=== PATIENT | male | born 1955 | race Caucasian/White ===

== ENCOUNTER → 2017-10-08 10:34 | Outpatient (CLI) | payer BC, SELFPAY ==
[2017-10-08 14:36] LABS: Absolute Lymphocyte Count 2.33 X10^3/ul (0.83-4.51); Absolute Neutrophil Count 5.9 X10^3/uL (2.0-7.7); Basophil# 0.04 X10^3/uL; Basophil% 0.4 % (0-1); Eosinophil# 0.17 X10^3/uL; Eosinophils% 1.8 % (0-5); Hematocrit 47.6 % (40-54); Hemoglobin 16.2 g/dl (13.0-16.5); Lymphocyte # 2.33 X10^3/ul (4.0); Lymphocyte % 24.6 % (19-41); Mean Corpuscular Hgb 31.1 pg (27.0-32.0); Mean Corpuscular Volume 91.4 fL (80-94); Mean Platelet Vol. 12.2 fl (6.2-12.0); Monocyte# 0.96 X10^3/uL; Monocyte% 10.1 % (0-10); Neutrophil # 5.94 X10^3/uL (2.7-7.7); Neutrophil % 62.7 % (47-70); Platelet Count 255 K/mm3 (150-450); Red Blood Count 5.21 M/mm3 (4.6-6.2); White Blood Count 9.5 K/mm3 (4.4-11.0)
[2017-10-08 14:39] LABS: POSITIVE COUNT NO; POSITIVE DIFFERENTIAL NO; POSITIVE MORPHOLOGY NO
[2017-10-08 14:56] LABS: AST(SGOT) 27 U/L (15-37); Alanine Aminotransfer ALT/SGPT 69 U/L (16-61); Albumin, Serum 3.7 g/dL (3.2-5.0); Alkaline Phosphatase 68 U/L (45-117); Anion Gap 8 (5-15); BUN 17 mg/dL (7-18); BUN/Creat Ratio 17.3 RATIO (10-20); Calcium,Total 8.9 mg/dL (8.5-10.1); Chloride 103 mmol/L (98-107); Creatinine, Serum 0.98 mg/dL (0.70-1.30); EST Glomerular Filtration Rate 83 mL/min (>60); Est Glom Filt Rate - Afr Amer 100 mL/min (>60); Globulin 3.8 g/dL (2.2-4.2); Glucose 127 mg/dL (74-106); PSA,Total - Annual Screen 1.08 ng/mL (0.00-4.00); Potassium 4.2 mmol/L (3.5-5.1); Protein, Total 7.5 g/dL (6.4-8.2); Sodium Level 138 mmol/L (136-145); Thyroid Stim Hormone (TSH) 1.24 uIU/mL (0.358-3.74)
[2017-10-09 09:25] LABS: Hep C Antibodies <0.1 s/co ratio (0.0-0.9)
== END ==
PROVIDERS: Family Provider Family Medicine Geriatric Medicine; PCP Family Medicine Geriatric Medicine; Visit Provider Family Medicine Geriatric Medicine
DX: R53.83 Other fatigue (principal); Z13.89 Encounter for screening for other disorder; Z12.5 Encounter for screening for malignant neoplasm of prostate
CPT/HCPCS: 36415; 80053; 84153; 84443; 85025; 86803; G0103

== ENCOUNTER → 2017-11-26 12:47 | Outpatient (CLI) | payer BC, SELFPAY ==
--- NOTE | 2017-11-26 12:50 | CT_ITS ---
STUDY: LOW DOSE CT LUNG CANCER SCREENING REASON FOR EXAM: Male, 62 years old. 45 pack year smoking history. RADIATION DOSAGE (If Supplied By Facility): CTDIvol = ( 4.02 ) mGy, DLP = ( 131.90 ) mGycm TECHNIQUE: No contrast was administered. Low dose technique was utilized (average mAS-38 and kVp 120). 1.25 mm axial source images with a slice interval of 1.25-mm were reconstructed in lung windows. 2.5 mm axial source images with a slice interval of 2.5-mm were reconstructed in lung windows. 5.0 mm axial source images with a slice interval of 5.0-mm were reconstructed in soft tissue windows. Nodule measured using lung windows on PACS and/or independent workstation with automated measurement of minimum and maximum diameter. Nodule measurement reported as average diameter rounded to the nearest whole number. Growth is defined as an increase ins size of greater than 1.5 mm. COMPARISON: CT of the chest, February 02, 2016. NODULES: Nodule #: 1 Density: Solid Lung location: Right upper lobe: Pleural-based Location in series: Series Number: 2 Image: 42 Size - D1 x D2 mm: 2 x 2 mm: 2 mm average diameter Margin: Smooth Shape: Rounded Calcification: Yes Fat: No Temporal comparison: Stable Nodule #: 2 Density: Solid Lung location: Right upper lobe: Pleural-based Location in series: Series Number: 2 Image: 53 Size - D1 x D2 mm: 2 x 2 mm: 2 mm average diameter Margin: Smooth Shape: Round Calcification: Yes Fat: No Temporal comparison: Stable Nodule #: 3 Density: Solid Lung location: Right lower lobe: 0.3 cm from pleura Location in series: Series Number: 2 Image: 77 Size - D1 x D2 mm: 2 x 2 mm: 2 mm average diameter Margin: Smooth Shape: Round Calcification: No Fat: No Temporal comparison: None Total lung nodules (excluding granulomas): 1 Emphysema: There are mild emphysematous changes lungs with subpleural blebs in the right upper lobe. Endobronchial lesion: No Aorta: Normal Coronary arteries: Normal Heart: Normal in size Pulmonary artery: Normal Mediastinal nodes: None Other chest and abdominal findings: There are degenerative changes of the thoracic spine. There is a type I hiatal hernia. There is fatty infiltration of the liver. CT/Low Dose CT Lung Screening IMPRESSION: Lung-RADS category 2 - Continue annual screening with LDCT in 12 months. IMPORTANT NOTES FOR USE: ACR Lung-RADS Version 1.0 Assessment Categories Release Date: September 22, 2013 Category: Coded 0-4 bases on nodule(s) with highest degree of suspicion. Negative screen is defined as categories 1 and 2; a positive screen is defined as categories 3 and 4. Category 3 and 4A nodules that are unchanged on interval CT should be coded as category 2, and individuals returned to screening in 12 months. Category 4X: Category 3 or 4 nodules with additional imaging findings that increase the suspicion of lung cancer, such as spiculation, GGN that doubles in size in 1 year, enlarged lymph notes, etc. Category Modifiers: S (significant finding unrelated to lung cancer) and C (prior history of treated lung cancer) may be added to the 0-4 Lung-RADS Electronically Signed: Jonathan Antonio DO at 17:06 EDT Tel [phone], Service support ,
--- NOTE | 2017-11-26 13:45 | US_ITS ---
STUDY: THYROID ULTRASOUND REASON FOR EXAM: Male, 62 years old. Nodule. TECHNIQUE: Ultrasound evaluation of the thyroid was performed with real-time and static hughes-scale imaging. COMPARISON: Thyroid ultrasound, October 04, 2016. FINDINGS: RIGHT LOBE: The right lobe of the thyroid gland measures 5.5 x 1.8 x 2.3 cm. There is a homogeneous echotexture. There is a 2.5 x 2.2 x 1.2 cm well-defined hypo-mass in the lower pole with linear internal calcifications. This demonstrates peripheral blood flow. LEFT LOBE: The left lobe of the thyroid gland measures 4.8 x 1.7 x 1.7 cm cm. There is a homogeneous echotexture. There are no demonstrated solid, cystic or complex lesions. There is normal vascularity on Doppler imaging. ISTHMUS: The isthmus measures 0.2 cm. The regional lymph nodes are normal. US/Thyroid IMPRESSION: Large calcified mass in the inferior right thyroid. TR 4. FNA is recommended secondary to the size of the lesion. Electronically Signed: Jonathan Antonio DO at 20:35 EDT Tel [phone], Service support ,
== END ==
PROVIDERS: Family Provider Family Medicine Geriatric Medicine; PCP Family Medicine Geriatric Medicine; Visit Provider Family Medicine Geriatric Medicine
DX: Z12.2 Encounter for screening for malignant neoplasm of respiratory organs (principal); E04.1 Nontoxic single thyroid nodule; Z87.891 Personal history of nicotine dependence
CPT/HCPCS: 76536; G0297

== ENCOUNTER → 2017-12-25 12:45 | Outpatient (CLI) | payer BC, SELFPAY ==
--- NOTE | 2017-12-25 09:00 | ASPS_PTH ---
PATIENT: GONZALEZ FUENTES LOC: [facility] U#:[id number] AGE/SX: 70/M ROOM: RE12/25/[address]: Dr. Kishor Chou MD : 1955 BED: DIS: SPEC #: [id number] RECD: 12/25/17 10:35 STATUS: OLGA MEHUL #: [id number] HODA: 12/25/17 09:[address]: Kishor Chou DEPT: CYTOLOGY RECD BY: Jose Rafael Charles Tissues: Thyroid gland, NOS Procedures: Pap Stain (control) Special Stain Group II Cytology Other HEADER OPERATION: Ultrasound-guided fine needle aspiration right thyroid PRE-OP DIAGNOSIS: Uninodular goiter E04.1 TISSUE SUBMITTED: Fine needle aspiration right thyroid 12 slides DIAGNOSIS CYTOLOGY Right thyroid nodule, ultrasound-guided FNA (smears): A few benign follicular cells noted. The specimen is limited in evaluation due to lack of adequate number of follicular cells. SJ:catina 12/26/17 COMMENT Correlation with clinical, radiologic findings and appropriate follow up are necessary. CYTOLOGY STUDY Slides are reviewed. CYTOLOGY GROSS Received are 12 smears labeled with the patient's name and designated per the requisition as FNA right thyroid. Submitted for staining. 12/25/17 TC:5 CPT: 18682
== END ==
PROVIDERS: Visit Provider Surgery
DX: E04.1 Nontoxic single thyroid nodule (principal)
CPT/HCPCS: 88161; 88313

== ENCOUNTER → 2018-01-16 11:18 | Outpatient (CLI) | payer BC, SELFPAY ==
--- NOTE | 2018-01-16 | ASPIG_PTH ---
PATIENT: GONZALEZ FUENTES LOC: [facility]#:[id number] AGE/SX: 70/M ROOM: RE01/16/[address]: Dr. Kishor Chou MD : 1955 BED: DIS: SPEC #: [id number] RECD: 01/16/18 13:00 STATUS: OLGA MEHUL #: [id number] HODA: 01/16/18 00:[address]: Kishor Chou DEPT: CYTOLOGY RECD BY: Diane Henry ENTERED: 01/16/18 14:15 SP TYPE: ASP OUT OTHR DR: Dr. Juan J Santos MD Tissues: Thyroid gland, NOS Procedures: FNA Specimen Adequacy Pap Stain (control) Special Stain Group II Surgery Specimen Level IV Diff Quik Stain (control) Cell Block Cytology Other HEADER OPERATION: Ultrasound-guided thyroid biopsy, right PRE-OP DIAGNOSIS: Right thyroid nodule TISSUE SUBMITTED: Right thyroid FNA DIAGNOSIS CYTOLOGY Right thyroid nodule, ultrasound-guided FNA (smears, cell block and cytospin): Consistent with benign follicular nodule. See cytology study and comment. SJ:rg 01/17/18 COMMENT The specimen is evaluated at the time of right thyroid FNA by Dr. Hodges. Immediate Evaluation: Set 1 ? A few follicular cells noted. Set 2 ? A few follicular cells noted. Correlation with clinical, radiologic findings and appropriate follow up are necessary. Please make reference to previous specimen ([id number]), right thyroid nodule, ultrasound-guided FNA with diagnosis of a few benign follicular cells noted. Case has been reviewed in consultation with Dr. Feliz who concurs with the above diagnosis. IDC:AM CYTOLOGY STUDY Slides are reviewed. The specimen is paucicellular, however, meets the criteria for adequacy by presence of minimal number of follicular cells. Minimal amount of colloid is noted. CYTOLOGY GROSS Set 1 ? 3 passes - Received is 0.5 ml of bloody fluid labeled with the patient's name, and designated right thyroid. Eight imprints and five paps are made from the submitted fluid and the rest is added to CytoLyt for cell block preparation. Submitted for cytology study. Set 2 ? 2 passes - Received is 0.4 ml of bloody fluid labeled with the patient's name, and designated right thyroid. Five imprints and four paps are made from the submitted fluid and the rest is added to CytoLyt for cell block preparation. Submitted for cytology study. / RADHA:catina 01/16/18 TC:5 CPT: 37927, 94952, 11239, 91191, 97716
--- NOTE | 2018-01-16 12:27 | PCM.OPRPT ---
Problem List (1) Uninodular goiter (nontoxic) Status: Acute Report of Operation Date of Procedure: 01/16/18 Pre-Operative Diagnosis: E04.1 uninodular goiter Post-Operative Diagnosis: Same Surgery/Procedure Performed:: Ultrasound-guided fine-needle aspiration of right thyroid nodule Type of Anesthesia:: Local Description of Procedure: Patient was brought into the ultrasound. Placed in the supine position. Right side of his neck was ultrasound lesion was identified. Prepped the skin with chlorhexidine. Injected 1% lidocaine plain. Under ultrasound guidance injected local down to the lesion. Under ultrasound guidance took 5 passes with a 22-gauge needle. I gave these to the pathologist who plated them and looked at them and said there were a few follicular cells but nothing definitive. Sterile dressings were applied and the patient tolerated the procedure well. I will see him back in 1 week to discuss the final path report. - Admit VTE Documentation VTE Present on Admission: No VTE Mechan Device Prophylaxis: None VTE Pharm Prophylaxis ordered?: No Reason prophylaxis not ordered:: Treatment Not Indicated
== END ==
PROVIDERS: Family Provider Family Medicine Geriatric Medicine; PCP Family Medicine Geriatric Medicine; Visit Provider Surgery
DX: E04.1 Nontoxic single thyroid nodule (principal)
CPT/HCPCS: 10022; 76942; 88161; 88172; 88305; 88313

== ENCOUNTER 2018-01-23 00:35 | Observation (INO) | payer BC, SELFPAY ==
[2018-01-23] VITALS (16 sets, daily range): BP systolic 117–147; BP diastolic 73–106; PULSE 54–78; RESP 15–20; TEMP 36.5–36.7; O2SAT 95–99; BMI 30.2; BMI 29.8; BMI 29.9
--- NOTE | 2018-01-23 00:52 | ED.RN ---
RN CALLED FOR EKG, NO OLD EKGS IN MUSE
[2018-01-23] MEDS: 0.9% Normal Saline 1,000 ML 150 ML IV (01:01)
--- NOTE | 2018-01-23 01:05 | NURSING ---
pt said the 1 nitro took all his cp away
--- NOTE | 2018-01-23 01:07 | NURSING ---
pt now c/o chest pain 0.5
[2018-01-23 01:32] LABS: Absolute Lymphocyte Count 2.69 X10^3/ul (0.83-4.51); Absolute Neutrophil Count 6.2 X10^3/uL (2.0-7.7); Basophil# 0.04 X10^3/uL; Basophil% 0.4 % (0-1); Eosinophil# 0.25 X10^3/uL; Eosinophils% 2.4 % (0-5); Hematocrit 46.7 % (40-54); Hemoglobin 15.6 g/dl (13.0-16.5); Lymphocyte # 2.69 X10^3/ul (4.0); Lymphocyte % 26.2 % (19-41); Mean Corp Hgb Conc 33.4 g/gl (32-36); Mean Corpuscular Volume 92.7 fL (80-94); Mean Platelet Vol. 11.1 fl (6.2-12.0); Monocyte% 10.7 % (0-10); Neutrophil # 6.15 X10^3/uL (2.7-7.7); POSITIVE COUNT NO; POSITIVE DIFFERENTIAL NO; POSITIVE MORPHOLOGY NO; Platelet Count 246 K/mm3 (150-450); RBC Distribution Width CV 12.7 % (11.6-14.6); RBC Distribution Width SD 42.6 fl (35.1-43.9); Red Blood Count 5.04 M/mm3 (4.6-6.2); White Blood Count 10.3 K/mm3 (4.4-11.0)
--- NOTE | 2018-01-23 01:35 | ED.DCSUM_ITS ---
- ER Visit Summary Date of Service: 01/23/18 Chief Complaint: Chest pain History of Present Illness: The patient is a 62 M who was at work tonight when he developed chest pain around 6 PM. It progressively worsened throughout the evening. He describes it as a pressure or bubble like sensation in his chest. It is been waxing and waning. He does have some shortness of breath and states the pain is sometimes worse with deep breath. He did take 2 full size aspirin tonight without improvement. He also tried an antacid without improvement. Patient denies history of coronary disease. His father had bypass surgery when he was in his 80s. He denies PE or DVT risk factors. Physical Examination: Vital signs are unremarkable. Patient sitting upright in bed no acute distress. Head neck examination is unremarkable. Heart is regular rate and rhythm. Lung sounds are clear. There is no reproducible chest wall tenderness. Abdomen is soft nontender. Lower extremity examination reveals no calf tenderness or edema. Strong distal pulses are noted. Test Results: EKG is sinus at 66 with no sign of acute ischemia. CBC and chemistry studies are normal. Troponin is negative. Portal chest x-ray shows no acute disease. Emergency Department Course and Treatment: Patient had taken aspirin prior to arrival. He was given nitroglycerin series here. Pain reduced from a 2 or 3 down to 1. While sitting at rest and talking with family patient states pain has completely resolved. I spoke with hospitalist regarding observation overnight for further cardiac evaluation. Treatment Plan: [] Disposition: Admit Impression: Chest pain This note was generated with [employer] dictation software. It may contain incorrect words, spelling, and punctuation that were not noted in review of the chart prior to signing ED Disposition - Plan for ED Patient: Chief Complaint: Chest Pain Referrals: Juan J Santos Chi, MD [Primary Care Provider] -
[2018-01-23 01:48] LABS: Anion Gap 8 (5-15); BUN 16 mg/dL (7-18); BUN/Creat Ratio 13.8 RATIO (10-20); Calcium,Total 9.2 mg/dL (8.5-10.1); Chloride 107 mmol/L (98-107); Creatinine, Serum 1.16 mg/dL (0.70-1.30); EST Glomerular Filtration Rate 68 mL/min (>60); Est Glom Filt Rate - Afr Amer 82 mL/min (>60); Estimated Creatinine Clearance 69.92 ml/min; Glucose 101 mg/dL (74-106); Potassium 4.1 mmol/L (3.5-5.1); Sodium Level 140 mmol/L (136-145)
--- NOTE | 2018-01-23 03:27 | PCM.HP.STD ---
Problem List (1) Chest pain Status: Acute Qualifiers: Chest pain type: unspecified Qualified Code(s): R07.9 - Chest pain, unspecified (2) Elevated BP without diagnosis of hypertension Status: Acute (3) Obesity (BMI 30.0-34.9) Status: Chronic (4) Tobacco use Status: Chronic (5) Thyroid nodule Status: Chronic History of Present Illness Date of Admission: 01/23/18 Chief Complaint: Chest pain The patient is a 62 ye/o M w/ PMHx: Tobacco use, Obesity, Thyroid nodule following w/ Dr. Chou s/p Bx 01/16/18 w/ pending pathology follow-up visit who presents to the 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 Patient took aspirin and tylenol without improvement prompting presentation to the ED. In the ED work-up included afebrile, heart rate 77, BP 143/83, respiratory rate 17, 99% on 2 L nasal cannula, unremarkable CBC, unremarkable BMP, normal troponin ?1, EKG w/ SR without acute evidence of ischemia. In the ED following NG x 3 chest pain resolved. CXR w/ mild bibasilar interstitial change with no evidence of acute cardiopulmonary disease. In the ED patient administered NS, NG. Past Medical History Past Medical History (Chronic Problems): Chronic Problems (Last Reviewed 12/25/17 @ 08:50 by Awilda Adair) Obesity (BMI 30.0-34.9) (Chronic) Tobacco use (Chronic) Thyroid nodule (Chronic) Medical History: Medical History (Last Reviewed 12/25/17 @ 08:50 by Awilda Adair) Fatigue (Acute) R53.83 Swollen neck (Acute) R22.1 Allergies No Known Allergies Allergy (Verified 01/23/18 00:38) Home Medications: Ambulatory Orders Medication Instructions Recorded lactobacillus combination no.9 4 4,000 mmu cells PO QDAY 12/11/17 billion cell capsule Surgical History: Surgical History (Last Reviewed 12/25/17 @ 08:50 by Awilda Adair) History of foot surgery (Acute) Z98.890 Right foot- Hx of ultrasound guided needle biopsy (Acute) Z98.890 Right thyroid FNA- ? Psychiatric History: No pertinent psych hx Lives: Spouse/ Significant Other Smoking Status: Former smoker - Quit cigarette tobacco use 2 years prior with prior to this one pack per day since a teenager Tobacco Use: Non-smoker Alcohol: None Drugs: None - *Family History Maternal Family History: Family History (Last Reviewed 12/25/17 @ 08:50 by Awilda Adair) Sister Breast cancer Father Diabetes History Items: - - Patient notes mother passed in her 60s secondary to a rare blood disease, unclear type. Paternal Family History: Family History (Last Reviewed 12/25/17 @ 08:50 by Awilda Adair) Sister Breast cancer Father Diabetes History Items: - - Patient notes paternal family history of heart disease, CABG in his 80s. Review of Systems Constitutional: Reports: Fatigue. Denies: Chills, Fever, Weight Change HEENT: Denies: Head Aches, Sinus Congestion, Sinus Drainage Cardiovascular: Reports: Chest Pain, Chest Pressure, Heaviness. Denies: Light Headedness, Orthopnea, Palpitations, Syncope Respiratory: Reports: Shortness of Breath. Denies: Cough, Shortness of breath at rest, Shortness of breath upon exertion, Sputum production Gastrointestinal: Denies: Abdominal Pain, Nausea, Vomiting Genitourinary: Denies: Dysuria Musculoskeletal: Denies: Joint Pain, Joint Tenderness Skin: Denies: Rash, Wounds Neurological: Denies: Numbness, Tingling, Focal weakness Psychiatric: Denies: Anxiety, Depression, Homicidal Ideations, Suicidal Ideations Hematologic/ Lymphatic: Denies: Easy Bruising, Easy Bleeding VTE Information - Inpt Only VTE Present on Admission: No VTE Mechan Device Prophylaxis: SCD's VTE Pharm Prophylaxis ordered?: Yes Patient Problems: Active and Suspected Problems (Last Reviewed 12/25/17 @ 08:50 by Awilda Adair) Chest pain (Acute) Elevated BP without diagnosis of hypertension (Acute) Subjective: Seated upright in the ED bed, no acute distress, notes currently chest discomfort completely resolved. Objective: Physical Examination: General: awake, alert, oriented x 3 and cooperative, seated upright in the ED bed in no apparent distress. Skin: normal color, turgor, no icterus, cyanosis. HEENT: AT/NC, EOMI, PERRLA, mildly dry MM, known thyroid enlargement w/ nodules, no carotid bruits or JVD noted. Lungs: CTA bilaterally, moderate effort, mild decrease BL bases, no rales, ronchi or wheezing. Heart: Regular rate and rhythm; no gallop, rub audible. Abdomen: soft, obese, NTTP, ND, normal BS, no HSM. Extremities: no cyanosis, clubbing, or edema. Neurological: patient awake, alert, oriented x 3; cognitive function intact; pupils equally reactive to light and accomodation; cranial nerves II-XII grossly normal, moving all 4 extremities, no focal deficits, strength preserved. Psychiatric: affect appears normal, no acute evidence of depressive or anxiety feelings. - Physical Exam Vital Signs Temp Pulse Resp BP Pulse Ox 98.1 F 54 L 15 132/87 H 98 01/23/18 00:36 01/23/18 03:26 01/23/18 03:26 01/23/18 03:26 01/23/18 03:26 Oxygen Flow Rate (L/min) 2 Oxygen Delivery Method Room Air Weight: 210 lb 5.136 oz Body Mass Index (BMI) 30.2 Laboratory Tests Past 24 Hrs 01/23/18 01/23/18 00:42 00:42 WBC 10.3 RBC 5.04 Hgb 15.6 Hct 46.7 MCV 92.7 MCH 31.0 MCHC 33.4 RDW 12.7 RDW Differential 42.6 Plt Count 246 MPV 11.1 Immature Gran % (Auto) 0.300 Neut % (Auto) 60.0 Lymph % (Auto) 26.2 Hamlin % (Auto) 10.7 H Eos % (Auto) 2.4 Baso % (Auto) 0.4 Absolute Neuts (auto) 6.2 Absolute Lymphs (auto) 2.69 Total Counted Not Reportable Sodium 140 Potassium 4.1 Chloride 107 Carbon Dioxide 25.0 Anion Gap 8 BUN 16 Creatinine 1.16 Estim Creat Clear Calc 69.92 Est GFR (MDRD) Af Amer 82 Est GFR (MDRD) Non-Af 68 BUN/Creatinine Ratio 13.8 Glucose 101 Calcium 9.2 Troponin I < 0.015 Assessment/Plan All Active Problems (Last Reviewed 12/25/17 @ 08:50 by Awilda Adair) Uninodular goiter (nontoxic) (Acute) Chest pain (Acute) Elevated BP without diagnosis of hypertension (Acute) History of foot surgery (Acute) Hx of ultrasound guided needle biopsy (Acute) Fatigue (Acute) Swollen neck (Acute) The patient is a 62 ye/o M w/ PMHx: Tobacco use, Obesity, Thyroid nodule following w/ Dr. Chou s/p Bx 01/16/18 w/ pending pathology follow-up visit who presents to the 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 (1) Chest Pain: EKG in ED SR without acute evidence of ischemia, CXR w/ chronic changes, initial trop normal x 1. Will admit to PCU, place on a monitored bed to assure no acute myocardial infarction with serial cardiac enzymes and EKGs. If cardiac enzymes remain unremarkable will perform AM stress testing. ASA, NG, morphine. FLP in AM. Mag pending. (2) Tobacco Abuse: Encouraged cessation, inpatient consultation per RT, NR if desired. (3) Obesity: Weight loss and lifestyle changes encouraged. (4) Thyroid nodule/goiter: Status post 01/16/18 FNA R thyroid nodule, pending pathology discussions per patient w/ surgery. (5) DVT Prophylaxis: SCDs, lovenox. Code Visit OBSV E&M: 36198 Initial observation care L3
[2018-01-23 04:46] LABS: Cholesterol 166 mg/dL (200); High Density Lipoprotein 37 mg/dL; Magnesium 2.1 mg/dL (1.6-2.6); Triglycerides 111 mg/dL; Very Low Density Lipoprotein 22 mg/dL (5-40)
[2018-01-23 04:54] LABS: Prothrombin Time (Protime)PT. 12.9 SECONDS (11.7-14.9)
[2018-01-23 04:55] LABS: Partial Thromboplast Time 27.3 Seconds (24.1-36.2)
[2018-01-23] MEDS: Aspirin E.C. 81 MG Tablet PO (05:19)
[2018-01-23] MEDS: 0.9% Normal Saline 1,000 ML 100 ML IV (05:30)
[2018-01-23] MEDS: Famotidine 20 MG Tablet PO (10:37)
--- NOTE | 2018-01-23 15:10 | PCM.DC ---
- Discharge Diagnoses Current Active Problems: Current Active and Chronic Problems (Last Reviewed 12/25/17 @ 08:50 by Awilda Adair) Chest pain (Acute) Obesity (BMI 30.0-34.9) (Chronic) Elevated BP without diagnosis of hypertension (Acute) Tobacco use (Chronic) Thyroid nodule (Chronic) You will use the following diet at home:: Cardiac Your food should be the consistency of: Regular Your liquids should be the consistency of: Regular/Thin Discharge Activity: Return to Normal Activity Additional Instructions: Please check your blood pressure each morning at the same time and record the results, present the findings to the PCP at follow up. Avoid secondhand smoke exposure. Allergies/Adverse Reactions: Allergies No Known Allergies Allergy (Verified 01/23/18 00:38) Medications to take at Discharge lactobacillus combination no.9 4 billion cell capsule 4,000 mmu cells PO QDAY 12/11/17 Primary Care Physician: Juan J Santos Chi, MD [Primary Care Provider] - Please follow up with your Primary Care Physician in: 1-2 weeks Test Results: Test results from this visit will be discussed in further detail at your follow-up appointment, if applicable. Proposed Discharge Date: 01/23/18
--- NOTE | 2018-01-23 15:14 | DCINST_ITS ---
- Discharge Diagnoses Current Active Problems: Current Active and Chronic Problems (Last Reviewed 12/25/17 @ 08:50 by Awilda Adair) Chest pain (Acute) Obesity (BMI 30.0-34.9) (Chronic) Elevated BP without diagnosis of hypertension (Acute) Tobacco use (Chronic) Thyroid nodule (Chronic) You will use the following diet at home:: Cardiac Your food should be the consistency of: Regular Your liquids should be the consistency of: Regular/Thin Discharge Activity: Return to Normal Activity Additional Instructions: Please check your blood pressure each morning at the same time and record the results, present the findings to the PCP at follow up. Avoid secondhand smoke exposure. Allergies/Adverse Reactions: Allergies No Known Allergies Allergy (Verified 01/23/18 00:38) Medications to take at Discharge lactobacillus combination no.9 4 billion cell capsule 4,000 mmu cells PO QDAY Primary Care Physician: Juan J Santos Chi, MD [Primary Care Provider] - Please follow up with your Primary Care Physician in: 1-2 weeks Test Results: Test results from this visit will be discussed in further detail at your follow- up appointment, if applicable. Proposed Discharge Date: 01/23/18
--- NOTE | 2018-01-23 15:15 | PCM.DC.SUM ---
<Nelson Bryan - Last Filed: 01/23/18 15:15> Discharge Date and Diagnosis - Problem List Patient Problems: Active and Suspected Problems (Last Reviewed 12/25/17 @ 08:50 by Awilda Adair) Chest pain (Acute) Elevated BP without diagnosis of hypertension (Acute) Date of Admission: 01/23/18 Date of Discharge: 01/23/18 - Primary Discharge Diagnosis Active and Suspected Problems (Last Reviewed 12/25/17 @ 08:50 by Awilda Adair) Chest pain (Acute) - musculoskeletal HTN Tobacco abuse - Secondary Discharge Diagnosis Chronic Problems (Last Reviewed 12/25/17 @ 08:50 by Awilda Adair) Obesity (BMI 30.0-34.9) (Chronic) Tobacco use (Chronic) Thyroid nodule (Chronic) Hospital Course and Treatment Imaging Results: RAD/Chest 1 View (Portable) IMPRESSION: Mild bibasilar interstitial change with no evidence of acute cardiopulmonary disease. Stress Echo: Interpretation Summary The study was technically difficult. Contrast injection was performed. The estimated ejection fraction is 65 %. Normal, adequate, treadmill echocardiogram. Negative for ischemia by EKG and echocardiographic criteria. No anginal symptoms noted. No arrhythmias noted. Test terminated due to the attainment of target heart rate and dyspnea. Final LVEF is 75%. Hypertensive blood pressure response to exercise. Average exercise capacity for age. Decreased sensitivity due to poor echo windows requiring Definity enhancing agent. No complications. Operations: None Procedures: Stress test Summary of Care Provided: Physical exam on day of discharge: General: Resting comfortably NAD Psych: A/Ox3 normal affect HEENT: PEARRLA AT NC Neck: Supple NT CV: RRR no m/t/r/g/h Resp: CTA Abd: [id number] Soft NT no guarding or rigidity Ext: DP2+= no edema Skin: W/D normal turgor Lymph/Heme: No active bleeding or adenopathy Neuro: CN2-12 intact Hospital course: The patient is a 62 year old M with heavy nicotine abuse history, not on any medications at home, who presented to the emergency room with chief complaint of shortness of breath described as 3-4 out of 10 left-sided pressure/heaviness with no radiation and some dyspnea progressively worsening. In the emergency room he was mildly hypertensive, with negative troponin, negative chest x-ray, negative EKG. He was admitted to the PCU on telemetry for chest pain workup. He underwent a stress echo the following morning with results as above, negative for ischemia. He was contained on telemetry with no events overnight, he had resolution of his chest pain overnight. Chest pain was felt to be musculoskeletal. Troponin negative x3. LDL was 107. He did continue to have mildly elevated hypertension and advised him to monitor his blood pressure daily and record it for presentation to his PCP at follow-up. He has not started on any medications at this time. He was discharged home in stable condition. Follow up with the PCP in 1-2 weeks. This patient was seen by Nelson Bryan PA-C under the supervision of Doctor Mike. Discharge Diet: Low fat/ Low Cholesterol, 2000 mg Sodium Diet Discharge Activity: Return to Normal Activity Home Medications: Medications to take at Discharge lactobacillus combination no.9 4 billion cell capsule 4,000 mmu cells PO QDAY 12/11/17 Primary Care Physician: Juan J Santos Chi, MD [Primary Care Provider] - Please follow up with your Primary Care Physician in: 1-2 weeks Disposition: Home Minutes spent on discharge:: 35 Patient Condition:: Stable Medical Necessity - Tobacco Use Smoking Status: Former smoker Tobacco Use: Non-smoker Meaningful Use Info Meaningful Use Diagnoses (Choose all that apply): None applicable <Mariana Mckeon - Last Filed: 01/23/18 15:33> Discharge Date and Diagnosis - Primary Discharge Diagnosis Active and Suspected Problems (Last Reviewed 12/25/17 @ 08:50 by Awilda Adair) Chest pain (Acute) Elevated BP without diagnosis of hypertension (Acute) - Secondary Discharge Diagnosis Chronic Problems (Last Reviewed 12/25/17 @ 08:50 by Awilda Adair) Obesity (BMI 30.0-34.9) (Chronic) Tobacco use (Chronic) Thyroid nodule (Chronic) Hospital Course and Treatment Summary of Care Provided: Patient seen by Nelson Bryan PA-C under my supervision. Patient presented with a complaint of shortness of breath and left sided chest discomfort. It had no aggravating or relieving factors, and he had never had chest pain like this before. EKG done was negative for any acute ST changes and troponins were also negative. Chest pain had resolved by morning. He had a stress echo which showed a normal adequate treadmill echocardiogram which was negative for ischemia by EKG and echocardiographic criteria. Final left ventricular ejection fraction was 75%. He had hypertensive blood pressure response to exercise. Patient's blood pressure was in the 140s systolic throughout his admission. He has no diagnosis of hypertension. Medications were started during this admission, as he does not meet the criteria for elevated blood pressure with blood pressure being checked and elevated on 3 separate days. He is to follow-up with his primary care doctor within 1 week for blood pressure monitoring and for start of medications as needed. Patient seen and examined prior to discharge. He had no complaints and felt well. He denied any fever chills, cough or chest pain, shortness of breath, any abdominal pain, any diarrhea vomiting. Review of systems otherwise negative. o/e: Vital Signs Height 5 ft 10 in Weight: 208 lb 1.862 oz Weight in Pounds 208.1 lbs Pulse Ox 95 Temperature 98.1 F Pulse Rate 78 Respiratory Rate 18 Blood Pressure [2nd BP] 143/106 Blood Pressure 147/79 Blood Pressure Position [2nd Semi-Fowlers BP] Blood Pressure Position Semi-Fowlers General: awake, alert, oriented x 3 and cooperative Skin: normal color, turgor, no icterus, cyanosis. HEENT: AT/NC, EOMI, PERRLA, known thyroid enlargement w/ nodules, no carotid bruits or JVD noted. Lungs: clear to auscultation bilaterally. No wheezes or rales. Heart: Regular rate and rhythm; no gallop, Abdomen: soft, obese, no tenderness. Normal bowel sounds. Extremities: no cyanosis, clubbing, or edema. Neurological: patient awake, alert, oriented x 3; cpupils equally reactive to light and accomodation; cranial nerves II-XII grossly normal, moving all 4 extremities, no focal deficits, strength preserved. Psychiatric: affect appears normal, Plan is to discharge patient home today. ASCVD score is 11.4%. LDL was 107, and HDL was only 37. Total cholesterol was 137. Will therefore start patient on atorvastatin 40 mg daily and aspirin 81mg daily. To follow up with PCP to monitor BP and decide whether to start BP meds or otherwise. Rest of management as per Nelson Bryan PA-C's note. [] Code Visit Inpatient E&M: 15843 Disch Hosp
== END 2018-01-23 15:14 | disposition home or self-care (01) ==
LOC: ED 00:58 → PCU 03:48
PROVIDERS: Admitting Provider Family Medicine; Emergency Provider Emergency Medicine; Family Provider Family Medicine Geriatric Medicine; PCP Family Medicine Geriatric Medicine; Visit Provider Student in an Organized Health Care Education/Training Program
DX: R07.89 Other chest pain (principal); R06.02 Shortness of breath; E04.1 Nontoxic single thyroid nodule; R03.0 Elevated blood-pressure reading, without diagnosis of hypertension; E66.9 Obesity, unspecified; Z68.29 Body mass index [BMI] 29.0-29.9, adult; Z71.3 Dietary counseling and surveillance; Z87.891 Personal history of nicotine dependence; R94.31 Abnormal electrocardiogram [ECG] [EKG]; R00.1 Bradycardia, unspecified
CPT/HCPCS: 36415; 71045; 80048; 80061; 83735; 84484; 85025; 85610; 85730; 93005; 93017; 93350; 96360; 96361; 99218; 99284; J7030; Q9957; A4216; C8928; G0378

== ENCOUNTER 2021-03-26 14:33 | Emergency (ER) | payer OTHER, SELFPAY ==
[2021-03-26 14:34] VITALS: BP 158/89; PULSE 69; RESP 16; TEMP 36.3; O2SAT 100; BMI 26.5
--- NOTE | 2021-03-26 14:57 | EX.ED.VIS.EY ---
HPI History of Present Illness Chief Complaint: Eye Problem Detail of Chief Complaint: Left eye foreign body Informant: patient Onset/Context/Timing Location: Left Eye Onset: Today Context: Sudden Onset Timing: Continuous Current Severity: Mild Maximum Severity: Mild Associated Symptoms History of injury: No Visual correction: Glasses Narrative Narrative: 65-year-old male wears glasses. Does not wear contacts and has never had eye surgery. He was changed Is currently thinks something got in his left eye. This is been going on for last several hours. He denies any other complaints. Previously he did have a foreign body then he needed to have removed by a bur. Prior similar symptoms: Yes Recent Illness/Hospitalization: No PFSH PFSH Medical History (Updated 03/26/21 @ 15:[address] Hollis Sigala MD) Fatigue Swollen neck Home Medications lactobacillus combination no.9 4 billion cell capsule 4,000 mmu cells PO QDAY 12/11/17 [History Last Taken Unknown] aspirin 81 mg PO DAILY@0800 #30 tab.chew 01/23/18 [Rx Last Taken Unknown] atorvastatin 40 mg PO DAILY #30 tab 01/23/18 [Rx Last Taken Unknown] Allergy/AdvReac Type Severity Reaction Status Date / Time No Known Allergies Allergy Verified 03/26/21 14:36 Family History Sister Breast cancer Father Diabetes Surgical History History of foot surgery Hx of ultrasound guided needle biopsy Social History Smoking Status: Former smoker alcohol intake: never substance use type: does not use caffeine: Yes what type of physical activity do you participate in: none frequency: does not exercise seatbelt use: always ROS ROS ED ROS Narrative Denies. Review of Systems ROS Unobtainable: Denies due to encephalopathy Constitutional Constitutional ED: Denies fever(s) or subjective Eyes Eyes: Denies blurry vision, change in vision or diplopia ENT ENT ED: Denies ear pain Cardiovascular Cardiovascular: Denies chest pain Respiratory/Chest Respiratory/Chest: Denies dyspnea Gastrointestinal Gastrointestinal: Denies abdominal pain Genitourinary Genitourinary ED: Denies dysuria Musculoskeletal Musculoskeletal: Denies myalgias Integumentary Denies rash Neurologic Neurologic: Denies headache(s) Psychiatric Psychiatric: Denies depression Endocrine Endocrinology: Denies polyuria Hematologic/Lymphatic Hematologic/Lymphatic: Denies easy bruising Allergic/Immunologic Allergic/Immunologic ED: Denies urticaria EXAM Physical Exam Narrative Exam Narrative: 65-year-old male no acute distress HEENT exam there is a foreign body left at about 5:00 on the border of the iris. Mild redness. Increased tearing. No discharge. No orbital or periorbital swelling. Extraocular motions are intact. Pupils round reactive light bilaterally. There is no preauricular lymphadenopathy. There is no cellulitis. Otherwise exam unremarkable. Const Vital Signs: 03/26/21 14:34 Temperature 97.4 F L Temperature Source Temporal Pulse Rate 69 Respiratory Rate 16 Blood Pressure 158/89 H Blood Pressure Mean 112 Pulse Ox 100 Oxygen Delivery Method Room Air Positive well nourished and well developed; Negative for obese, cachectic, contractures or unkempt General Appearance ED: well developed and NAD; Negative for unkempt, cachectic or contractures Nutritional Appearance: Negative for cachectic or obese HEENT HEENT Narrative: Left eye foreign body at 5:00. I instilled tetracaine and fluorescein. Did a slit-lamp exam. Easily remove the foreign body with a wet Q-tip. On repeat examination there is a very minimal corneal abrasion with fluorescein uptake. There is no ulceration. He denies any visual change. atraumatic Eyes Periorbital: periorbital findings normal Eyelid: eyelids normal Resp normal respiratory effort, no retractions, no use of accessory muscles and clear to auscultation bilaterally Cardio regular rate, regular rhythm, S1 normal heart sound, S2 normal heart sound and no murmurs GI non-tender, non-distended and no masses Auscultation: normoactive bowel sounds Palpation: soft Extremity normal to inspection General Extremety ED: Negative for edema General Extremity: Negative for edema Neuro oriented x3 Sensorium / Orientation: alert, oriented to person, oriented to place and oriented to time; Negative for other Sensory Exam: No sensory level loss detected Psych Appearance: Negative for unkempt Attitude: No agitated Mood & Affect: Negative for depressed, anxious or tearful Skin no wounds Lesions: no lesions Rashes: no rashes MDM MDM MDM Narrative Medical decision making narrative: Slit-lamp performed left eye. Tetracaine removed the discomfort. Fluorescein showed obvious foreign body at 5:00 on the border of the iris. Which I removed easily with a white Q-tip. Patient tolerated procedure well. Discharge Plan Triage Chief Complaint: Eye Problem ED Provider: Hollis Sigala Dx/Rx/DC Orders Clinical Impression: Acute foreign body of left eye Instructions: ED Corneal Foreign Body, Removed Prescriptions: No Action lactobacillus combination no.9 [Adult 50 Plus Probiotic] 4 billion cell capsule 4,000 mmu cells PO QDAY RF: 0 atorvastatin 40 MG tablet 40 mg PO DAILY Qty: 30 RF: 0 aspirin 81 MG Tab.Chew 81 mg PO DAILY@0800 Qty: 30 RF: 0 Primary Care Provider: Ryder Graves Referrals: Marito Forte MD [STAFF PHYSICIAN] - As Needed Ryder Graves DO [Primary Care Provider] - As Needed Activity Restrictions/Additional Instructions: Follow-up with the eye doctor Dr. Marito Forte at [facility] if not improving. Use the eyedrops as needed for pain for the next 24 hours but after midnight on Sunday night you cannot continue to use them because they retard healing. Eye ointment to left eye twice a day for next 3 days. Return if any problems. Disposition Disposition: Home, Self Care
[2021-03-26] MEDS: Tetracaine 0.5% Ophthalmic Bottle 1 DRP RIGHT EYE (15:23)
[2021-03-26] MEDS: Fluorescein 1 MG STRIP 1 STRIP RIGHT EYE (15:24)
[2021-03-26 15:25] VITALS: RESP 16
== END 2021-03-26 15:31 | disposition home or self-care (01) ==
LOC: ED 15:17
PROVIDERS: Emergency Provider Emergency Medicine; PCP Student in an Organized Health Care Education/Training Program
DX: T15.02XA Foreign body in cornea, left eye, initial encounter (principal); X58.XXXA Exposure to other specified factors, initial encounter; Y93.9 Activity, unspecified; Y92.9 Unspecified place or not applicable; Y99.9 Unspecified external cause status; Z79.82 Long term (current) use of aspirin; Z87.891 Personal history of nicotine dependence
CPT/HCPCS: 99282

== ENCOUNTER 2025-04-13 14:35 | Observation (INO) | payer BC, MEDICARE, SELFPAY ==
[2025-04-13 14:40] VITALS: BP 155/73; PULSE 85; RESP 18; TEMP 36.2; O2SAT 98; BMI 31.1
--- NOTE | 2025-04-13 14:55 | ED.RN ---
spoke with ED physician. states do not need to call stroke alert at this time.
--- NOTE | 2025-04-13 15:11 | EKG12_ITS ---
Test Reason : Blood Pressure : */* mmHG Vent. Rate : 64 BPM Atrial Rate : 64 BPM P-R Int : 200 ms QRS Dur : 84 ms QT Int : 370 ms P-R-T Axes : 65 -27 32 degrees QTcB Int : 381 ms Normal sinus rhythm Normal ECG Confirmed by HONEY MERRILL, NAY ([id number]), editor school photograph ADI BADILLO ([id number]) on 04/14/2025 12:21:45 PM Referred By: Confirmed By: NAY MÉNDEZ MD
--- NOTE | 2025-04-13 15:13 | EDS_ITS ---
HPI History of Present Illness Chief Complaint: Hyperglycemia Narrative Narrative: Patient is a 69-year-old male presenting to the emergency department for polydipsia, polyuria and an episode today where he developed right sided facial droop, numbness and slurred speech. Has a past medical history of elevated blood pressure, tobacco use, obesity he is on no medications at home. He states it started right before 2 PM. States that it lasted about 5 minutes and all of the symptoms have since resolved. was home with him and states she could not understand his speech. He denies this ever happening before. States about 5 years ago he was told that he was prediabetic and lost weight but states that since then he has gained weight back and has not been to the doctor. He denies any numbness or weakness in his legs. Denies any headache or visual changes. Denies any recent head trauma or falls. Patient denies fever, chills, chest pain, shortness of breath, abdominal pain, nausea, vomiting, diarrhea. PFSH PFS Medical History Fatigue Swollen neck Home Medications ?Medication ?Instructions ?Recorded ?Last Taken ?Type NK 04/13/25 Unknown History Allergy/AdvReac Type Severity Reaction Status Date / Time No Known Allergies Allergy Verified 04/13/25 14:37 Family History Sister Breast cancer Father Diabetes Surgical History History of foot surgery Hx of ultrasound guided needle biopsy Social History Smoking Status: Former smoker alcohol intake: never substance use type: does not use caffeine: Yes what type of physical activity do you participate in: none frequency: does not exercise seatbelt use: always ROS ROS ED ROS Narrative see HPI EXAM Physical Exam Narrative Exam Narrative: Vital signs: Reviewed General: Alert and oriented x 3. No acute distress HEENT: Head is normocephalic and atraumatic, sinuses nontender, pupils equal round and reactive. Nares are patent. Oropharynx and throat exams normal. Dry mucous membranes. Neck: Supple without lymphadenopathy nontender Cardiovascular: Regular rate and rhythm, no murmurs. No rubs or gallops. No rmal S1 and S2 Respiratory: Clear to auscultation bilaterally. No wheezes, rales, rhonchi Abdominal: Soft and nontender. Normal bowel sounds. No guarding or rebound. Nonsurgical abdomen Extremities: No tenderness. No bruising. Normal range of motion. Normal sensation. Skin: No rash or redness. The rest of the physical exam is unremarkable Const Vital Signs: 04/13/25 14:40 04/13/25 14:45 04/13/25 15:48 Temperature 97.2 F L Temperature Source Oral Pulse Rate 85 70 Respiratory Rate 18 16 Respiratory Effort Normal Non-Labored Respiratory Pattern Normal Blood Pressure 155/73 H 147/87 H Blood Pressure Mean 100 107 Pulse Ox 98 99 Oxygen Delivery Method Room Air Room Air NIHSS NIHSS Initial: 1a Level of Consciousness: 0 1b LOC Questions (Score 2 if aphasic/stupor): 0 1c LOC Commands (Only score 1st attempt): 0 2 Best Gaze (If aphasic, use reflexive mvmts.): 0 3 Visual: 0 4 Facial Palsy: 0 5 Motor Arm Right (UN = amputation/fusion): 0 5 Motor Arm Left: 0 6 Motor Leg Right: 0 6 Motor Leg Left: 0 7 Limb ataxia (Only + if out of proportion): 0 8 Sensory (Aphasia/stupor=0 or 1, coma=2): 0 9 Best Language: 0 10 Dysarthria (mute, coma=2, intubated=UN): 0 11 Extinction and Inattention (only scored if +): 0 Total Score: 0 MDM MDM MDM Narrative Medical decision making narrative: Patient is a 69-year-old male presenting to the emergency department for polyuria, polydipsia and right-sided facial numbness, drooping and slurred speech. Patient was seen and examined. Vitals are stable. Patient resting in bed comfortably in no acute distress. Based on the patient's history and physical sound like the patient had a TIA. No strokelike symptoms on my evaluation of the patient. NIH of 0. In addition the patient has had polyuria and polydipsia and I suspect diabetes is because of this. Labs and hemoglobin A1c ordered. CBC with no leukocytosis and a normal hemoglobin. BMP with hyperglycemia of 429, normal anion gap and bicarb, not consistent with DKA. Troponin within normal limits. EKG shows NSR, no ischemic changes. No dysrhythmia. Urinalysis with glucose and ketones consistent with his likely new onset diabetes. Negative beta hydroxybutyrate. Fluid bolus started. Will recheck glucose after fluids to see if there is any need for insulin. CT of the brain shows no acute intracranial abnormalities, chronic changes. Hemoglobin A1c of 10.8. Discussed admission with the patient for fur ther workup of his TIA and management of his new onset diabetes. Patient is agreeable. Patient admitted to Dr. Ambrose for further management. Clinical impression: TIA New onset diabetes History & Record Review Discussion w/independent historian: Patient and Significant other Lab Data Attestation: I reviewed the patient's lab results. Labs: Laboratory Results - last 24 hr 04/13/25 04/13/25 14:51 15:20 WBC 8.3 RBC 5.33 Hgb 16.4 Hct 47.7 MCV 89.5 MCH 30.8 MCHC 34.4 RDW Std Deviation 40.1 RDW Coeff of [place] 12.2 Plt Count 227 MPV 11.3 Immature Gran % (Auto) 0.400 Neut % (Auto) 73.1 H Lymph % (Auto) 17.[address] [place] % (Auto) 7.0 Eos % (Auto) 1.4 Baso % (Auto) 0.5 Absolute Neuts (auto) 6.1 Absolute Lymphs (auto) 1.46 Nucleated RBC % 0 Sodium 135 Potassium 4.0 Chloride 100 Carbon Dioxide 23.9 Anion Gap 12 BUN 16 Creatinine 0.97 Estim Creat Clear Calc 86.96 Est GFR (MDRD) Non-Af 86 BUN/Creatinine Ratio 16.1 Glucose 429 H Hemoglobin A1c 10.8 H Calcium 9.8 Troponin T High Sens < 6 b-Hydroxybutyric mmol/L 0.3 Urine Color Straw Urine Clarity Clear Urine pH 6.0 Ur Specific [place] 1.015 Urine Protein 15 H Urine Glucose (UA) 1000 H Urine Ketones 5 H Urine Occult Blood Negative Urine Nitrite Negative Urine Bilirubin Negative Urine Urobilinogen Normal Ur Leukocyte Esterase Negative Radiography Diagnostic Testing: Clinical Impression(s) from Imaging Studies Brain CT 04/13/25 15:20 IMPRESSION: CHRONIC CHANGES. NO ACUTE FINDINGS. Reading Location: [id number] Discharge Plan Triage Chief Complaint: Hyperglycemia ED Provider: Kathy Ann Dx/Rx/DC Orders Prescriptions: No Action NK Primary Care Provider: Ryder Graves Referrals: Ryder Graves DO [Primary Care Provider, Medical] Print Language: [place]
--- NOTE | 2025-04-13 15:20 | CT_ITS ---
PROCEDURE: BRAIN/HEAD WITHOUT CONTRAST 04/13/2025 REASON FOR EXAM: RIGHT SIDED WEAKNESS, FACIAL DROOP, RESOLVED TECHNIQUE: Procedure Code: CTBR Modality: CT Procedure: BRAIN/HEAD WITHOUT CONTRAST Coronal and Sagittal reconstruction series were provided. One or more dose reduction techniques were used (e.g., Automated exposure control, adjustment of the mA and/or kV according to patient size, use of iterative reconstruction technique. RADIATION DOSE SUMMARY: CTDlvol: 47.06 mGy DLP: 907.97 mGycm COMPARISON: None FINDINGS: Brain: Normal CSF Spaces: Mild generalized cerebral atrophy Sinuses/Mastoids: Small retention cyst or polyp at the base of the left maxillary sinus. Bones: Unremarkable CT/Brain/Head without Contrast IMPRESSION: CHRONIC CHANGES. NO ACUTE FINDINGS. Reading Location: [id number]
[2025-04-13] MEDS: 0.9% Normal Saline (1000mL) 1,000 ML 1000 ML IV (15:21)
[2025-04-13 15:25] LABS: Mucous, Urine 0 SEEN /hpf (<or=2+)
[2025-04-13 15:32] LABS: Hematocrit 47.7 % (40-54); Hemoglobin 16.4 g/dL (13.0-16.5); Immature Granulocytes Count 0.030 X10^3/uL (0.0-0.0); Mean Corp Hgb Conc 34.4 g/dL (32-36); Mean Corpuscular Volume 89.5 fL (80-94); Mean Platelet Vol. 11.3 fl (6.2-12.0); NRBC Flagged by Analyzer 0 % (0-5); Platelet Count 227 K/mm3 (150-450); RBC Distribution Width CV 12.2 % (11.6-14.6); RBC Distribution Width SD 40.1 fl (35.1-43.9); Red Blood Count 5.33 M/mm3 (4.6-6.2); White Blood Count 8.3 K/mm3 (4.4-11.0)
[2025-04-13 15:48] VITALS: BP 147/87; PULSE 70; RESP 16; O2SAT 99
--- NOTE | 2025-04-13 15:49 | ED.RN ---
unable to straighten 2 fingers of right hand, had difficulty writing signature.
[2025-04-13 15:53] LABS: Anion Gap 12 (5-15); BUN 16 mg/dL (4-19); BUN/Creat Ratio 16.1 RATIO (10-20); Calcium,Total 9.8 mg/dL (7.6-11.0); Carbon Dioxide 23.9 mmol/L (21.0-32.0); Chloride 100 mmol/L (98-108); Estimated Creatinine Clearance 86.96 ml/min (50-250); Glucose 429 mg/dL (70-99); Potassium 4.0 mmol/L (3.3-5.1)
[2025-04-13 15:54] LABS: Troponin T High Sensitivity < 6 ng/L (<=22)
[2025-04-13 16:00] LABS: Color, Urine Straw (Yellow); Glucose, Dipstick 1000 mg/dl (Normal); Ketone-Dipstick 5 mg/dl (Negative); Leukocyte Esterase-Dipstick Negative /ul (Negative); Nitrite-Dipstick Negative (Negative); Occult Blood-Urine Negative /ul (Negative); Protein-Dipstick 15 mg/dl (Negative); Specific Gravity, Urine 1.015 (1.002-1.030); Urine Bilirubin Dipstick Negative (Negative)
[2025-04-13 16:18] LABS: BETA-HYDROXYBUTYRATE 0.3 mmol/L (0.0-0.3)
--- NOTE | 2025-04-13 16:39 | PCM.HP.STD ---
HPI - General General Date of Admission: 04/13/25 Date of Service: 04/13/25 Chief Complaint: Polyuria, polydipsia and strokelike symptoms HPI Narrative GONZALEZ FUENTES, is a 69 M who presented to [facility] ED on 04/13/2025 with polyuria, polydipsia and strokelike symptoms. Patient lives at home with his . He is not on any medications at home but notably has not seen his PCP for many years. He has had polyuria and polydipsia now for the past several weeks. Today he had an episode of right-sided facial droop with numbness and slurred speech, so his brought him in for further evaluation. The symptoms lasted for about 5 minutes and resolved by the time they got to the ED. In the ED he was hypertensive to the 150s systolic but otherwise in normal sinus rhythm, afebrile and stable on room air at rest. CT brain unremarkable. CBC was benign. BMP was benign as well except for a glucose of 429. Found to have an A1c of 10.8%. UA with 1000 glucose, 15 protein, 5 ketones, was otherwise benign. Given his strokelike symptoms and new onset diabetes, hospitalist was contacted for admission. I saw the patient at bedside in the ED, and son were present. Patient was mild fatigue. But otherwise sitting back comfortably in bed, conversing normally, in no acute distress. Denies any neurologic symptoms at this time. His blood sugar had been rechecked after receiving only IV fluids and was down to the 330s. He does have a strong family history of diabetes. He does report losing 10 to 15 pounds over the past few months without trying and notes that he has felt fatigued frequently. He denies any recent infections. No other acute concerns currently. Will be admitted for further management. [facility] Medical History (Updated 04/13/25 @ 18:[address] Jerry Ambrose, DO) Fatigue Swollen neck Home Medications ?Medication ?Instructions ?Recorded ?Last Taken ?Type NK 04/13/25 Unknown History Allergy/AdvReac Type Severity Reaction Status Date / Time No Known Allergies Allergy Verified 04/13/25 14:37 Family History Sister Breast cancer Father Diabetes Surgical History History of foot surgery Hx of ultrasound guided needle biopsy Social History Smoking Status: Former smoker alcohol intake: never substance use type: does not use caffeine: Yes what type of physical activity do you participate in: none frequency: does not exercise seatbelt use: always ROS Constitutional Constitutional: Reports fatigue; Denies chills, fever(s) or weakness Eyes Eyes: Denies change in vision Cardiovascular Cardiovascular: Denies chest pain Respiratory/Chest Respiratory/Chest: Denies shortness of breath at rest Gastrointestinal Gastrointestinal: Denies abdominal pain, constipation, diarrhea, nausea or vomiting Genitourinary Genitourinary: Denies dysuria Musculoskeletal Musculoskeletal: Denies arthralgias or myalgias Neurologic Neurologic: Denies dizziness, focal weakness, headache(s), numbness or tingling Endocrine Endocrinology: Reports polydipsia and polyuria Vital Signs Vital Signs Vital Signs: 04/13/25 14:40 04/13/25 14:45 04/13/25 15:48 Temperature 97.2 F L Temperature Source Oral Pulse Rate 85 70 Respiratory Rate 18 16 Respiratory Effort Normal Non-Labored Respiratory Pattern Normal Blood Pressure 155/73 H 147/87 H Blood Pressure Mean 100 107 Pulse Ox 98 99 Oxygen Delivery Method Room Air Room Air Weight Weight: 98.5 kg Body Mass Index (BMI) 31.1 Physical Exam Const alert, oriented x3 and no apparent distress Constitutional Narrative: Pleasant upper middle-age male, mildly fatigued appearing, otherwise sitting back comfortably in bed, conversing normally, in no acute distress. General Appearance: cooperative and comfortable HEENT normocephalic, head/scalp atraumatic, hearing grossly normal bilaterally and nasal mucous membranes and turbinates normal HEENT Narrative: Dry mucous membranes. Eyes PERRL, EOMs intact bilaterally and conjunctivae normal Neck full ROM Chest inspection of chest normal Resp normal respiratory effort, normal air movement, no use of accessory muscles and clear to auscultation bilaterally Cardio regular rate, regular rhythm, no murmurs and peripheral pulses 2+ throughout GI normal to inspection, nondistended, normoactive bowel sounds, soft to palpation, non-tender and non-distended Back/Spine normal ROM Extremity normal to inspection, full ROM and no pedal edema Skin no rashes or lesions noted Neuro oriented x3, CN's II-XII intact bilaterally, moves all extremities and no focal motor deficits Speech: speech normal Motor Exam: strength 5/5 throughout Psych mental status grossly normal Results Lab / Micro Data 04/13/25 14:51 04/13/25 14:51 Labs: Laboratory Results - last 24 hr 04/13/25 14:51: WBC 8.3, RBC 5.33, Hgb 16.4, Hct 47.7, MCV 89.5, MCH 30.8, MCHC 34.4, RDW Std Deviation 40.1, RDW Coeff of [place] 12.2, Plt Count 227, MPV 11.3, Immature Gran % (Auto) 0.400, Neut % (Auto) 73.1 H, Lymph % (Auto) 17.6 L, [place] % (Auto) 7.0, Eos % (Auto) 1.4, Baso % (Auto) 0.5, Absolute Neuts (auto) 6.1, Absolute Lymphs (auto) 1.46, Nucleated RBC % 0, Sodium 135, Potassium 4.0, Chloride 100, Carbon Dioxide 23.9, Anion Gap 12, BUN 16, Creatinine 0.97, Estim Creat Clear Calc 86.96, Est GFR (MDRD) Non-Af 86, BUN/Creatinine Ratio 16.1, Glucose 429 H, Calcium 9.8, Troponin T High Sens < 6, b-Hydroxybutyric mmol/L 0.3 04/13/25 15:20: Urine Color Straw, Urine Clarity Clear, Urine pH 6.0, Ur Specific [place] 1.015, Urine Protein 15 H, Urine Glucose (UA) 1000 H, Urine Ketones 5 H, Urine Occult Blood Negative, Urine Nitrite Negative, Urine Bilirubin Negative, Urine Urobilinogen Normal, Ur Leukocyte Esterase Negative Imaging Radiology Impression Brain CT 04/13/25 15:20 IMPRESSION: CHRONIC CHANGES. NO ACUTE FINDINGS. Reading Location: [id number] Assessment & Plan Assessment/Plan (1) Stroke-like symptoms: (2) Hyperglycemia due to type 2 diabetes mellitus: PLAN: Plan Patient is a 69-year-old male who presented to [facility] ED on 04/13/2025 with strokelike symptoms and polyuria with polydipsia. 1. Strokelike symptoms ? Admit under observation status to PCU. Had reported symptoms of right-sided facial droop with numbness and slurred speech. Symptoms lasted about 5 minutes and resolved prior to arrival to the ED. NIH score of [address] brain unremarkable. Highest suspicion is that symptoms are secondary to new onset diabetes with hyperglycemia as below but cannot rule out CVA. Given symptoms have resolved, will hold off on orders per stroke protocol order set and neurology consult. Will order MRI brain without contrast as well as a.m. lipid profile and follow-up with these results. 2. New onset type 2 diabetes mellitus with hyperglycemia ? Blood glucose 429 in the ED. A1c 10.8%. Has had polyuria, polydipsia and unintentional weight loss of 10 to 15 pounds over the past few months. Will treat with Lantus 20 units at night and Humalog 7 units with meals plus sliding scale insulin while here. Patient has a PCP and his sees this PCP regularly, so I impressed upon them that he will need close outpatient follow-up for medication titration for his diabetes. He would prefer to go home on an oral regimen rather than insulin if possible. 3. Elevated BP readings ? Systolic BP in the 140s to 150s in the ED. No reported history of hypertension, not on any home antihypertensives. Will hold on starting blood pressure medications given his strokelike symptoms as above. If MRI is negative and BP remains high, can consider starting antihypertensive therapy at discharge. 4. Class I obesity ? BMI 31 on admit. Complicates hospital course and care. Encouraged lifestyle modifications. DVT prophylaxis: Lovenox CODE STATUS: Full code, verified Expected disposition: Home, 1 to 2 days Total clinical time spent by myself addressing the patient's medical issues, reviewing all the data, and collaborating with patient's care team: 78 minutes. Charges/Coding Visit Charges Inpatient E&M: 54391 Init Hosp L3
[2025-04-13 16:45] VITALS: BP 150/91; PULSE 70; RESP 18; TEMP 36.2; O2SAT 97
[2025-04-13 16:56] LABS: Red Blood Cells-Urine 0-5 SEEN /hpf (0-5); Squamous Epithelial Cells - UA 0-5 SEEN /hpf (0-5)
--- NOTE | 2025-04-13 17:18 | MRI_ITS ---
PROCEDURE: MRI BRAIN WITHOUT CONTRAST 04/13/2025 REASON FOR EXAM: CVA RULE OUT TECHNIQUE: Procedure Code: MRIBR Modality: MR Procedure: BRAIN WITHOUT CONTRAST Multiplanar and multisequential MRI of the brain was performed without contrast. COMPARISON: Noncontrast CT head earlier same day. No prior MRI available. FINDINGS: Small foci of restricted diffusion in the left precentral gyrus (S6 image 21) and small focus in the right parietal lobe (S6 image 19) compatible with acute infarcts, likely embolic. Mild chronic microangiopathic changes elsewhere in the supratentorial white matter. Mild generalized brain parenchymal volume loss. No evidence of acute intracranial hemorrhage, extra-axial collection, mass-effect, or other acute abnormality. Major intracranial vascular flow voids appear preserved. Grossly unremarkable orbits. Mild polypoid mucosal thickening in the floors of bilateral maxillary sinuses. Remainder of the paranasal sinuses are well-aerated. No mastoid effusions. MRI/Brain without Contrast IMPRESSION: Two small foci of acute infarct in the left precentral gyrus and right parietal lobe, likely embolic. Reading Location: [id number]
[2025-04-13 17:57] LABS: Troponin T High Sens 2 HR 6 ng/L (<=22)
--- OUTSIDE RECORDS SUMMARY | 2025-04-13 18:39 | XMS RPT_ITS | CCD ---
Author Organization [facility] Inform ion Partnership [facility] Care Team Providers [employer] Tutor Name Role Phone Ed Pearl Admitting Ed Gallegos Attending Unavailynes collins TomJuan J farah Chi Primary Care Unavailable LAURENT ORTEGA Attending Unavailable LAURENT ORTEGA Primary Care Unavailable LAURENT ORTEGA Admitting Unavailable Ryder Preston DO Primary Care Provider Ryder Preston DO Primary Care Provider Ryder Preston DO Primary Care Provider Kp EMERY GRINDER.Chayo CHAVARRIA Unavailable Marily EMERY GRINDER.Estefani CHAVARRIA Unavailable RYDER PRESTON Primary Care Unavailable BELÉN LLOYD Attending Unavailable RYDER PRESTON Primary Care Unavailable Allergies Allergy Classification Reported Allergen(s) Allergy Type Date of Onset Reaction(s) Facility Corticosteroids (1 source) fluticasone Drug Allergy 4 Other: See Comments [facility] (1 source) No Known Medication Allergies; Translations: [No Known Medication Allergies] Propensity to adverse reactions to drug (disorder) [facility] Rep[facility] (9 sources) fluticasone; Translations: [FLUTICASONE] Drug Allergy 4 Other: See Comments [facility] Medications Current Medications Medication Drug Class(es) Dates Sig (Normalized) Sig (Original) [id number] 200 actuat albuterol 0.09 mg/actuat metered dose inhaler (1 source) beta2-Adrenergic Agonist Start: 06-01-2024 take 2 puff(s) by inhalation every four hours as needed for wheezing albuterol HFA (PROVENTIL HFA, VENTOLIN HFA) 90 mcg/actuation inhaler Indications: Wheezing Inhale 2 Puffs as instructed every 4 hours as needed for wheezing/shortnes s of breath. 1 Each 06/01/2024 Active Start: 06-01-2024 take 2 puff(s) by in halation every four hours as needed for wheezing albuterol HFA (PROVENTIL HFA, VENTOLIN HFA) 90 mcg/actuation inhaler Indications: Wheezing Inhale 2 Puffs as instructed every 4 hours as needed for wheezing/shortness of breath. 1 Each 06/01/2024 Active cholecalciferol 0.125 mg oral tablet (7 sources) Vitamin D take 1 tablet by mouth once daily cholecalciferol (VITAMIN D-3) 5,000 unit tab Take 5,000 Units by mouth once daily. Active cyclobenzaprine hydrochloride 10 mg oral tablet (2 sources) Muscle Relaxant Start: 10-05-19 End: 10-20-19 take 1 tablet by mouth three times daily as needed for muscle spasms cyclobenzaprine (FLEXERIL) 10 mg tablet Indications: Headache, unspecified headache type , Acute exacerbation of chronic low back pain Take 1 tablet by mouth three times a day as needed for muscle spasm for up to 15 days. 30 tablet 1 10/05/2023 10/20/2023 Active Start: 04-28-2023 End: 05-13-2023 take 1 tablet by mouth every eight hours as needed for headache and headache cyclobenzaprine (FLEXERIL) 10 mg tablet Indications: Headache, unspecified headache type Take 1 tablet by mouth three times a day as needed for up to 15 days. 15 tablet 0 04/28/2023 05/13/2023 Active Comment on above: Take 1 tablet by sandy three times a day as needed for up to 15 days. diazePAM 10 mg oral tablet (3 sources) Benzodiazepine Start: End: take 1 tablet by mouth every eight hours as needed for muscle spasms and muscle spasms diazePAM (VALIUM) 10 mg tablet Indications: Muscle spasm Take 1 tablet by mouth every 8 hours as needed (muscle spasm) for up to 30 days. 30 tablet 1 10/05/2023 11/04/2023 Active doxycycline monohydrate 100 mg oral tablet (3 sources) Tetracycline-class Drug Start: End: take 1 tablet by mouth twice daily doxycycline monohydrate 100 mg tablet Indications: Exposure to pneumonia Take 1 tablet by mouth two times a day for 7 days. 14 tablet 06/01/2024 06/08/2024 Active Start: 10-11-2021 End: 10-18-2021 take 1 tablet by mouth twice daily doxycycline monohydrate 100 mg tablet Take 1 tablet by mouth twice daily for 7 days. 14 tablet 0 10/11/2021 10/18/2021 Active Comment on above: Take 1 tablet by sandy th twice daily for 7 days. ibuprofen 600 mg oral tablet (1 source) Nonsteroidal Anti-inflammatory Drug Start: 04-28-20 End: 05-13-20 take 1 tablet by mouth every six hours as needed for headache and headache ibuprofen (MOTRIN) 600 mg tablet Indications: Headache, unspecified headache type Take 1 tablet by mouth every 6 hours as needed for pain for up to 15 days. 30 tablet 0 04/28/2023 05/13/2023 Active Comment on above: Take 1 tablet by sandy every 6 hours as needed for pain for up to 15 days. Inhalational Spacing Device (1 source) Start: 06-01-19 End: 06-01-19 Inhalational Spacing Device Indications: Wheezing 1 Device one time only for 1 dose. 1 Each 06/01/2024 06/01/2024 Active meclizine hydrochloride 25 mg oral tablet (7 sources) Antiemetic Start: 10-05-19 take 1 tablet by mouth three times daily as needed for dizziness meclizine (ANTIVERT) 25 mg tab Indications: Vertigo Take 1 tablet by mouth three times a day as needed (dizziness). 30 tablet 2 10/05/2023 Active predniSONE 10 mg oral tablet (2 sources) Start: 06-01-19 End: 06-10-19 predniSONE (DELTASONE) 10 mg tablet Indications: Viral bronchitis Take 4 tabs daily for 3 days, then 2 tabs daily for 3 days, then 1 tab daily for 3 days with food. 21 tablet 06/01/2024 06/10/2024 Active Start: 10-05-2023 End: 10-14-2023 predniSONE (DELTASONE) 10 mg tablet Indications: Acute exacerbation of chronic low back pain Take 4 tabs daily for 3 days, then 2 tabs daily for 3 days, then 1 tab daily for 3 days with food. 21 tablet 0 10/05/2023 10/14/2023 Active Completed/Discontinued Medications Medication Drug Class(es) Dates Sig (Normalized) Sig (Original) benzonatate 100 mg oral capsule (9 sources) Non-narcotic Antitussive Start: 06-07-2023 End: 11-14-2023 take 1 capsule by mouth three times daily as needed for cough benzonatate (TESSALON PERLES) 100 mg capsule Indications: Bronchitis Take 1 capsule by mouth three times a day as needed for cough. 30 capsule 0 06/07/2023 11/14/2023 Discontinued (Course of therapy completed) Start: 07-07-2020 End: 04-28-2023 take 1 capsule by mouth every eight hours as needed benzonatate (TESSALON PERLES) 100 mg capsule Take 1 capsule by mouth three times daily as needed for Cough. 30 capsule 0 07/07/2020 04/28/2023 Discontinued Comment on above: Take 1 capsule by mo uth three times daily as needed for Cough. Take 1 capsule by mo uth three times a day as needed for cough. calcium chloride 0.0014 meq/ml / potassium chloride 0.004 meq/ml / sodium chloride 0.103 meq/ml / sodium lactate 0.028 meq/ml injectable solution (1 source) Start: 2023 End: 2023 lactated ringers iv infusion diphenhydrAMINE (1 source) Histamine-1 Receptor Antagonist Start: 2023 End: 2023 diphenhydrAMINE 12.5-50 mg injection (BENADRYL) 1 ml fentaNYL 0.05 mg/ml injection (1 source) Opioid Agonist Start: 2023 End: 2023 fentaNYL 50 mcg/mL 25-100 mcg injection (SUBLIMAZE) ketoconazole 20 mg/ml topical cream (3 sources) Azole Antifungal Start: 2018 End: 2022 ketoconazole (NIZORAL) 2 % cream Indications: Seborrheic dermatitis , Tinea cruris Apply 1 application to affected area once daily as needed (rash on eyebrows or groin). 30 g 1 01/24/2019 04/28/2023 Discontinued Comment on above: Apply 1 application to affected area once daily as needed (rash on eyebrows or groin). meloxicam 15 mg oral tablet (3 sources) Nonsteroidal Anti-inflammatory Drug Start: 2018 End: 2022 take 1 tablet by mouth once daily meloxicam (MOBIC) 15 mg tablet Indications: Tendonitis, Achilles, right Take 1 tablet by mouth once daily. 30 tablet 5 01/24/2019 04/28/2023 Discontinued Comment on above: Take 1 tablet by sandy once daily. 5 ml midazolam 1 mg/ml injection (1 source) Benzodiazepine Start: 2023 End: 2023 midazolam 1-5 mg injection (VERSED) polyethylene glycol 3350 [id number] mg / potassium chloride 2970 mg / sodium bicarbonate 6740 mg / sodium chloride 5860 mg / sodium sulfate 80434 mg powder for oral solution (2 sources) Osmotic Laxative Start: 2021 End: 2022 peg 3350-Electrolytes (GOLYTELY) 236-22.74-6.74 -5.86 gram suspension Refer to printed prep instructions from your provider. 4000 mL 0 12/07/2021 04/28/2023 Discontinued Comment on above: Refer to printed pre p instructions from your provider. sildenafil 100 mg oral tablet (9 sources) Phosphodiesterase 5 Inhibitor Start: 2020 End: 2023 take 1 tablet by mouth once daily as needed, then take 1 tablet by mouth every twenty-four hours as needed sildenafil (VIAGRA) 100 mg tablet Take 1 PO daily as needed for erectile dysfunction. Do not exceed more than 1 tablet per 24 hours. 10 tablet 1 11/22/2020 11/14/2023 Discontinued (Discontinued by Patient) Comment on above: Take 1 PO daily as n eeded for erectile dysfunction. Do not exceed more than 1 tablet per 24 hours. triamcinolone acetonide 1 mg/ml topical cream (3 sources) Corticosteroid Start: 2018 End: 2022 triamcinolone acetonide (KENALOG) 0.1 % cream Indications: Seborrheic dermatitis Apply 1 application to affected area once daily as needed. Apply to affected area. Location: rash on eyebrowns 30 g 1 01/24/2019 04/28/2023 Discontinued Comment on above: Apply 1 application to affected area once daily as needed. Apply to affected area. Location: rash on eyebrowns Problems Active Problems Problem Classification Problem Date Documented Date Episodic/Chronic Acute bronchitis (1 source) Viral bronchitis; Translations: [Acute bronchitis due to other specified organisms] 06-01-2024 Episodic Chronic obstructive pulmonary disease and bronchiectasis (1 source) Bronchitis; Translations: [Bronchitis, not specified as acute or chronic] 06-07-2023 Episodic Diabetes mellitus without complication (12 sources) Prediabetes; Translations: [Prediabetes] 12-24-2018 Episodic Disorders of lipid metabolism (1 source) Dyslipidemia; Translations: [Hyperlipidemia, unspecified] 07-11-2023 Chronic Immunizations and screening for infectious disease (1 source) Contact with and (suspected) exposure to other communicable diseases; Translations: [Contact with or exposure to other communicable diseases] 06-01-2024 Episodic Occlusion or stenosis of precerebral arteries (8 sources) Bilateral atherosclerosis of carotid arteries; Translations: [Occlusion and stenosis of bilateral carotid arteries] Onset: 10-10-2023 10-05-2023 Chronic Other and unspecified benign neoplasm (1 source) Adenomatous polyp of colon ; Translations: [Benign neoplasm of ascending colon] 11-14-2023 Episodic Other lower respiratory disease (1 source) Wheezing; Translations: [Wheezing] 06-01-2024 Episodic Other nervous system disorders (2 sources) Other disturbances of smell and taste; Translations: [Other disturbances of smell and taste] Onset: 07-01-2020 Episodic Other upper respiratory infections (1 source) Acute sinusitis; Translations: [Acute sinusitis, unspecified] Episodic Skin and subcutaneous tissue infections (1 source) Cutaneous abscess, unspecified; Translations: [Abscess] Onset: 02-28-2025 Episodic Unclassified (1 source) COVID-19; Translations: [COVID-19] Onset: 07-01-2020 Past or Other Problems Problem Classification Problem Date Documented Da te Episodic/Chronic Conditions associated with dizziness or vertigo (8 sources) Vertigo; Translations: [Dizziness and giddiness] Onset: 10-10-2023 10-05-2023 Episodic Headache; including migraine (9 sources) Headache; Translations: [Headache, unspecified headache type] Onset: 10-10-2023 04-28-2023 Episodic Nonspecific chest pain (8 sources) Chest pain; Translations: [Chest pain, unspecified] Onset: 10-10-2023 10-05-2023 Episodic Other and unspecified benign neoplasm (12 sources) Polyp of colon; Translations: [Polyp of colon] Onset: 01-04-2016 01-04-2016 Episodic Other and unspecified benign neoplasm (8 sources) Benign neoplasm of colon; Translations: [Benign neoplasm of colon, unspecified] Onset: 10-10-2023 10-05-2023 Episodic Other connective tissue disease (8 sources) Spasm; Translations: [Other muscle spasm] Onset: 10-10-2023 10-05-2023 Episodic Other screening for suspected conditions (not mental disorders or infectious disease) (11 sources) Patient encounter status; Translations: [Encounter for screening for malignant neoplasm of colon] Onset: 10-10-2023 Episodic Spondylosis; intervertebral disc disorders; other back problems (8 sources) Chronic low back pain; Translations: [Acute exacerbation of chronic low back pain] Onset: 10-10-2023 10-10-2023 Episodic Results Test Name Value Interpretation Reference Range Facility [facility] 02-28-2025 CNOV Office Visit ([facility]) WARREN MANRIQUEZ ([id number]) 1955 M Date Time Provider Department 02/28/25 12:00 PM BELÉN LLOYD During your visit today, we recorded the following information about you: Temperature Pulse Respiration Blood pressure 96.9 degrees 68/minute 16/minute 130/72 Weight 98.5 kg Belén Lloyd APRN.CNP 02/28/2025 12:28 PM Signed [facility] Subjective Warren Collins Declan is a 69 year old male. Patient presents with: Derm Problem: infected cyst in groin area with drainage and pain x 3-4 days The history is provided by the patient. No project portfolio analyst was used. Inguinal Lesion: - Chronic lesion in the inguinal region, described as a knot present for years without prior issues. - Recently became sore and swollen, prompting the patient to express purulent discharge by squeezing the lesion. - Currently experiencing serosanguinous discharge. - Denies known drug allergies. - Denies any known kidney function issues. - Frequent walking at work reportedly exacerbates irritation. Review of Systems Constitutional: Negative for fever. Musculoskeletal: Negative for arthralgias and neck pain. Skin: Negative for color change. Purulent drainage and lesion Neurological: Negative for headaches. Psychiatric/Behavioral : Negative for confusion. Skin: (+) inguinal swelling, (+) inguinal pain, (+) purulent discharge, (+) bloody discharge Objective BP 130/72 Pulse 68 Temp 36.1 ?C (96.9 ?F) Resp 16 Wt 98.5 kg (217 lb 2.5 oz) SpO2 98% BMI 31.09 kg/m? Physical Exam Constitutional: General: He is not in acute distress. HENT: Head: Normocephalic and atraumatic. Eyes: Conjunctiva/sclera: Conjunctivae normal. Pupils: Pupils are equal, round, and reactive to light. Pulmonary: Effort: Pulmonary effort is normal. Musculoskeletal: Cervical back: Normal range of motion and neck supple. Skin: General: Skin is warm and dry. Findings: Rash present. Rash is pustular. Comments: Small pea size area of redness and purulent drainage Neurological: Mental Status: He is alert and oriented to person, place, and time. General: No acute distress. Skin: Erythematous, fluctuant lesion in the inguinal region with purulent discharge. {Recording using [employer]! software for draft documentation of the visit was discussed with the patient/authorized aircraft sales representative; all questions welcomed and answered. Patient/authorized aircraft sales representative agreed to proceed History and Record Review External record(s) reviewed: prior labs/imaging and prior outpatient record. Findings from review of outpatient records: no record of problem in groin Findings from review of prior labs/imaging: Previous Renal Function Panel Reviewed No results within last 365 days. ASSESSMENT/PLAN: 1. Abscess - ICD9: 682.9, ICD10: L02.91 - Begin treatment with Cephalaxin (Keflex) - No lymphangetic streaking, this was defined for patient to watch for and to seek medical care immediately if appears - open and draining, - Mupirocin topicallly Diagnosis and treatment plan were discussed and questions were answered to the patient's satisfaction. Pt acknowledged understanding of concepts and follow up plan. Specific signs and symptoms that would indicate the need for higher level of care were discussed in detail warranting prompt ER evaluation. Belén Lloyd APRN.CALL CENTER ANALYST Allergies As of Date: 02/28/2025 Noted Allergy Reaction FLONASE (FLUTICASONE) 06/07/2023 14 - Other: See Comments Comments: Made pt no feel well and vomit Date Reviewed: 02/28/2025 Reviewed by: Sherine Webb MA - Fully Assessed Reason for Visit: Derm Problem [33] Cmt: infected cyst in groin area with drainage and pain x 3-4 days Primary Visit Diagnosis:Abscess [L02.91] Order(s):mupirocin (BACTROBAN) 2 % ointmentApply 1 application to affected area three times a day.Disp: 30 gRfl: 0 cephALEXin (KEFLEX) 500 mg capsuleTake 1 capsule by mouth four times daily for 5 days.Disp: 20 capsuleRfl: 0 Prescriptions as of 02/28/2025 - mupirocin (BACTROBAN) 2 % ointment Apply 1 application to affected area three times a day. - cephALEXin (KEFLEX) 500 mg capsule Take 1 capsule by mouth four times daily for 5 days. - albuterol HFA (PROVENTIL HFA, VENTOLIN HFA) 90 mcg/actuation inhaler Inhale 2 Puffs as instructed every 4 hours as needed for wheezing/shortness of breath. - cholecalciferol (VITAMIN D-3) 5,000 unit tab Take 5,000 Units by mouth once daily. - meclizine (ANTIVERT) 25 mg tab Take 1 tablet by mouth three times a day as needed (dizziness). Problem List As Of Date 02/28/2025 Noted Resolved Polyp of colon [K63.5] 01/04/2016 Pre-diabetes [R73.03] Screening for colon cancer [Z12.11] 10/10/2023 Vertigo [R42] 10/10/2023 Muscle spasm [M62.838] 10/10/2023 Carotid atherosclerosis, bilateral [I65.23] 10/10/2023 Chest pain [R07. (more content not included)... Normal [facility] CNOVon 06-01-2024 CNOV Office Visit ([facility]WSTR ) WARREN MANRIQUEZ ([id number]) 1955 M Date Time Provider Department 06/01/24 9:30 AM [facility] During your visit today, we recorded the following information about you: Temperature Pulse Respiration Blood pressure 97.2 degrees 74/minute 16/minute 122/76 Weight 99.7 kg Stacey Dillard APRN.CALL CENTER ANALYST 06/01/2024 9:46 AM Signed Subjective Nasal Congestion Associated symptoms include congestion, coughing and a sore throat. Pertinent negatives include no chills, ear pain or shortness of breath. Warren Manriquez is a 69 year old male who presents with cough, nasal congestion, chest congestion and sore throat for the past several days. He has been taking zyrtec at home daily. His was hospitalized recently for pneumonia. He has not had a fever. He states he can hear himself wheezing at night. Review of Systems Constitutional: Negative for chills, fever and malaise/fatigue. HENT: Positive for congestion and sore throat. Negative for ear pain. Respiratory: Positive for cough, sputum production and wheezing. Negative for shortness of breath. Cardiovascular: Negative for chest pain. Gastrointestinal: Negative for diarrhea, nausea and vomiting. Musculoskeletal: Negative for myalgias. BP 122/76 Pulse 74 Temp 36.2 ?C (97.2 ?F) Resp 16 Wt 99.7 kg (219 lb 12.8 oz) SpO2 97% BMI 31.47 kg/m? PAST MEDICAL HISTORY Diagnosis Date GERD (gastroesophageal reflux disease) hemorrhoid Pre-diabetes Tubular adenoma 2023 Vertigo PAST SURGICAL HISTORY Procedure Laterality Date COLONOSCOPY 2016 COLONOSCOPY FLX DX W/COLLJ SPEC WHEN PFRMD 10/2023 repeat 5yrs F SIGMOIDOSCOPY FLEXIBLE negative--hemorrhoids PAST SURGICAL HISTORY OF Right foot surgery--calcium deposit PAST SURGICAL HISTORY OF total dental extraction STRESS TEST 2018 normal THYROID BIOPSY US 2018 normal, no repeat indicated ALLERGIES Flonase [Fluticasone] MEDICATIONS cholecalciferol (VITAMIN D-3) 5,000 unit tab Take 5,000 Units by mouth once daily. meclizine (ANTIVERT) 25 mg tab Take 1 tablet by mouth three times a day as needed (dizziness). predniSONE (DELTASONE) 10 mg tablet Take 4 tabs daily for 3 days, then 2 tabs daily for 3 days, then 1 tab daily for 3 days with food. albuterol HFA (PROVENTIL HFA, VENTOLIN HFA) 90 mcg/actuation inhaler Inhale 2 Puffs as instructed every 4 hours as needed for wheezing/shortness of breath. Inhalational Spacing Device 1 Device one time only for 1 dose. doxycycline monohydrate 100 mg tablet Take 1 tablet by mouth two times a day for 7 days. FAMILY HISTORY Problem Relation Age of Onset Ischemic Heart Disease Maternal Grandfather Diabetes Maternal Grandmother Blood Disease Mother unknown Coronary Artery Disease Father Diabetes Father Social History Tobacco Use Smoking status: Former Current packs/day: 0.00 Types: Cigarettes Smokeless tobacco: Never Substance Use Topics Alcohol use: Yes Comment: rarely Drug use: No Objective Physical Exam Vitals and nursing note reviewed. Constitutional: General: He is not in acute distress. Appearance: Normal appearance. He is not ill-appearing. HENT: Right Ear: Tympanic membrane, ear canal and external ear normal. Left Ear: Tympanic membrane, ear canal and external ear normal. Nose: Nose normal. Mouth/Throat: Mouth: Mucous membranes are moist. Pharynx: Oropharynx is clear. Uvula midline. No oropharyngeal exudate or posterior oropharyngeal erythema. Cardiovascular: Rate and Rhythm: Normal rate and regular rhythm. Heart sounds: Normal heart sounds. Pulmonary: Effort: Pulmonary effort is normal. No respiratory distress. Breath sounds: Examination of the right-lower field reveals wheezing. Examination of the left-lower field reveals wheezing. Wheezing present. No rales. Comments: Bilateral slight expiratory wheeze Musculoskeletal: Cervical back: Neck supple. Lymphadenopathy: Cervical: No cervical adenopathy. Skin: General: Skin is warm and dry. Findings: No erythema or rash. Neurological: Mental Status: He is alert. ASSESSMENT/PLAN: 1. Viral bronchitis - ICD9: 466.0, ICD10: J20.8 (primary diagnosis) - PREDNISONE 10 MG TABLET 2. Exposure to pneumonia - ICD9: V01.89, ICD10: Z20.89 - DOXYCYCLINE MONOHYDRATE 100 MG TABLET-if symptoms not improving in 3-5 days, may begin taking antibiotic. 3. Wheezing - ICD9: 786.07, ICD10: R06.2 - ALBUTEROL SULFATE HFA 90 MCG/ACTUATION AEROSOL INHALER - INHALATIONAL SPACING DEVICE - Follow-up with your PCP in 3-5 days if symptoms have not improved or sooner if symptoms worsen - Discussed red flags and need for immediate medical evaluation if any occur. - Discussed supportive care treatment with fluids, rest and analgesia. - Discussed expected course of illness Stacey Dillard APRN.DEON Weiner (more content not included)... Normal [facility] Colonoscopy Study observatio non 11-08-2023 [facility] Gastrointestinal Endoscopy Patient Name: Warren Manriquez Procedure Date: 11/08/2023 10:16 AM Date of : 1955 Admit Type: Outpatient Age: 68 Gender: Male Note Status: Finalized Procedure: Colonoscopy Indications: High risk colon cancer surveillance: Personal history of colonic polyps Providers: Kishor Chou MD Patient Profile: This is a 68 year old male. Refer to note in patient chart for documentation of history and physical. Last Colonoscopy: 2015. Referring Physician: Ryder Preston DO (Referring MD) Medicines: Fentanyl 100 micrograms IV, Midazolam 5 mg IV, Diphenhydramine 50 mg IV Complications: No immediate complications. Estimated blood loss: Minimal. Requesting Provider: Procedure: Pre-Anesthesia Assessment: - Prior to the procedure, a History and Physical was performed, and patient medications and allergies were reviewed. The patient's tolerance of previous anesthesia was also reviewed. The risks and benefits of the procedure and the sedation options and risks were discussed with the patient. All questions were answered, and informed consent was obtained. Prior Anticoagulants: The patient has taken no anticoagulant or antiplatelet agents. ASA Grade Assessment: II - A patient with mild systemic disease. After reviewing the risks and benefits, the patient was deemed in satisfactory condition to undergo the procedure. After I obtained informed consent, the scope was passed under direct vision. Throughout the procedure, the patient's blood pressure, pulse, and oxygen saturations were monitored continuously. The Colonoscope was introduced through the anus and advanced to 4 cm into the ileum. The colonoscopy was performed without difficulty. The patient tolerated the procedure well. The quality of the bowel preparation was good. The terminal ileum, ileocecal valve, appendiceal orifice, and rectum were photographed. Moderate Sedation: The administration of moderate sedation was initiated at 10:20 AM. Moderate (conscious) sedation was personally administered by the endoscopist. The following parameters were monitored: oxygen saturation, heart rate, blood pressure, respiratory rate, EKG, adequacy of pulmonary ventilation, and response to care. Total physician intraservice time was 14 minutes. Findings: The perianal and digital rectal examinations were normal. A diminutive polyp was found in the ascending colon. The polyp was sessile. The polyp was removed with a jumbo cold forceps. Resection and retrieval were complete. Non-bleeding internal hemorrhoids were found during retroflexion. The hemorrhoids were moderate and medium-sized. The exam was otherwise without abnormality. Impression: - One diminutive polyp in the ascending colon, removed with a jumbo cold forceps. Resected and retrieved. - Non-bleeding internal hemorrhoids. - The examination was otherwise normal. Recommendation: - Patient has a contact number available for emergencies. The signs and symptoms of potential delayed complications were discussed with the patient. Return to normal activities tomorrow. Written discharge instructions were provided to the patient. - Resume previous diet. - Continue present medications. - Await pathology results. - Repeat colonoscopy date to be determined after pending pathology results are reviewed for surveillance based on pathology results. - Return to nurse practitioner at appointment to be scheduled. Procedure Code(s): --- Professional --- 24779, Colonoscopy, flexible; with biopsy, single or multiple G0500, Moderate sedation services provided by the same physician or other qual (more content not included)... PROVATION [facility] Radiology Study observation (narrative) [facility] Comprehensive metabolic 2000 panelon 07-14-2023 Albumin [Mass/Vol] 4.2 g/dL 3.9 - 4.9 g/dL Cl [facility] ALP [Catalytic activity/Vol] 55 U/L 38 - 113 U/L [facility] ALT [Catalytic activity/Vol] 53 U/L 10 - 54 U/L [facility] Anion gap [Moles/Vol] 10 mmol/L 9 - 18 mmol/L [facility] AST [Catalytic activity/Vol] 35 U/L 14 - 40 U/L [facility] Bilirubin [Mass/Vol] 0.5 mg/dL 0.2 - 1 .3 mg/dL [facility] Calcium [Mass/Vol] 9.7 mg/dL 8.5 - 10. 2 mg/dL [facility] Chloride [Moles/Vol] 103 mmol/L 97 - 10 5 mmol/L [facility] CO2 [Moles/Vol] 24 mmol/L 22 - 30 mmol/L [facility] Creatinine [Mass/Vol] 0.98 mg/dL 0.73 - 1.22 mg/dL [facility] Estimated Glomerular Filtration Rate 85 mL/min/1.73m >=60 mL/min/1.73m [facility] Glucose [Mass/Vol] 118 mg/dL High 74 - 99 mg/dL [facility] Potassium [Moles/Vol] 4.3 mmol/L 3.7 - 5.1 mmol/L [facility] Protein [Mass/Vol] 7.1 g/dL 6.3 - 8.0 g/dL [facility] Sodium [Moles/Vol] 137 mmol/L 136 - 144 mmol/L [facility] Urea nitrogen [Mass/Vol] 14 mg/dL 9 - 24 mg/dL [facility] Lipid 1996 panelon Cholesterol [Mass/Vol] 157 mg/dL <200 mg/dL [facility] Cholesterol in HDL [Mass/Vol] 44 mg/dL >39 mg/dL [facility] Cholesterol in LDL [Mass/Vol] 97 mg/dL <100 mg/dL [facility] Cholesterol in LDL/Cholesterol in HDL [Mass ratio] 2.20 {ratio} <2.54 [facility] Cholesterol in VLDL [Mass/Vol] 16 mg/dL <30 mg/dL [facility] Cholesterol non HDL [Mass/Vol] 113 mg/dL <130 mg/dL [facility] Cholesterol.total/Ch olesterol in HDL [Mass ratio] 3.57 {ratio} <5.10 [facility] Fasting Time 12 hrs [facility] Triglyceride [Mass/Vol] 79 mg/dL <150 mg/dL [facility] PSA/PROSTSPECAG SCRNon 07-14 Prostate specific Ag [Mass/Vol] 1.36 ng/mL <2.60 ng/mL [facility] T4 FREE/FREE THYROXon 2023 Free T4 [Mass/Vol] 1.2 ng/dL 0.9 - 1.7 ng/dL [facility] TSH BLDon 07-14-2023 TSH Qn 1.260 m[IU]/L 0.270 - 4.200 mIU/L [facility] VITAMIN B12 BLOODon 07-14-19 Cobalamin (Vitamin B12) [Mass/Vol] 376 pg/mL 232 - 1,245 pg/mL [facility] CBC W Auto Differential pane l (Bld)on 07-13-2023 Basophils (Bld) [#/Vol] 0.07 10*3/uL <0.11 k/uL [facility] Basophils/100 WBC (Bld) 1.0 % [facility] Differential cell count method Nom (Bld) Auto [facility] Eosinophils (Bld) [#/Vol] 0.20 10*3/uL <0.46 k/uL [facility] Eosinophils/100 WBC (Bld) 3.0 % [facility] Erythrocyte distribution width (RBC) [Ratio] 13.2 % 11.5 - 15.0 % [facility] Hematocrit (Bld) [Volume fraction] 48.2 % 39.0 - 51.0 % [facility] Hemoglobin (Bld) [Mass/Vol] 16.2 g/dL 13.0 - 17.0 g/dL [facility] Immature granulocytes (Bld) [#/Vol] <0.10 k/uL [facility] Immature granulocytes/100 WBC (Bld) 0.3 % [facility] Lymphocytes (Bld) [#/Vol] 1.48 10*3/uL 1.00 - 4.00 k/uL [facility] Lymphocytes/100 WBC (Bld) 22.1 % [facility] MCH (RBC) [Entitic mass] 29.6 pg 26.0 - 34.0 pg [facility] MCHC (RBC) [Mass/Vol] 33.6 g/dL 30.5 - 36.0 g/dL [facility] MCV (RBC) [Entitic vol] 88.1 fL 80.0 - 100.0 fL [facility] Monocytes (Bld) [#/Vol] 0.65 10*3/uL <0.87 k/uL [facility] Monocytes/100 WBC (Bld) 9.7 % [facility] Neutrophils (Bld) [#/Vol] 4.27 10*3/uL 1.45 - 7.50 k/uL [facility] Neutrophils/100 WBC (Bld) 63.9 % [facility] Nucleated RBC (Bld) [#/Vol] <0.01 k/uL [facility] Nucleated RBC/100 WBC (Bld) [Ratio] 0.0 /100 WBC [facility] Platelet mean volume (Bld) [Entitic vol] 10.8 fL 9.0 - 12.7 fL [facility] Platelets (Bld) [#/Vol] 247 10*3/uL 150 - 400 k/uL [facility] RBC (Bld) [#/Vol] 5.47 10*6/uL 4.20 - 6.0 0 m/uL [facility] WBC (Bld) [#/Vol] 6.69 10*3/uL 3.70 - 11. 00 k/uL [facility] HbA1c (Bld)on 07-13-2023 Average glucose Estimated from glycated hemoglobin (Bld) [Mass/Vol] 134 mg/dL [facility] HbA1c (Bld) [Mass fraction] 6.3 % High 4.3 - 5.6 % [facility] VITAMIN D 25 HYDROXYon 07-13 25-hydroxyvitamin D3 [Mass/Vol] 12.8 ng/mL Low 31.0 - 80.0 ng/mL [facility] XR Chest PA and Lateralon IMPRESSION: No acute radiographic abnormality. It Director: PSCB Transcribe Date/Time: Jun 07 2023 3:35P Dictated by : ROSALINDA MEJIA MD This examination was interpreted and the report reviewed and electronically signed by: ROSALINDA MEJIA MD on Jun 07 2023 3:36PM [facility] DIVISION OF RADIOLOGY * * *Final Report* * * DATE OF EXAM: Jun 07 2023 1:59PM WOX 5291 - XR CHEST 2V FRONTAL/LAT / PROCEDURE REASON: Bronchitis * * * * Physician Interpretation * * * * EXAMINATION: CHEST RADIOGRAPH (2 VIEW FRONTAL & LATERAL) CLINICAL HISTORY: Bronchitis MQ: XC2_6 EXAM DATE/TIME: 06/07/2023 1:59 PM COMPARISON: No relevant prior studies available. RESULT: Lines, tubes, and devices: None. Lungs and pleura: No consolidation. No lung mass. No pleural effusion. No pneumothorax. Cardiomediastinal silhouette: Normal cardiomediastinal silhouette. Bones and soft tissues: There are degenerative changes in the spine. DIVISION OF RADIOLOGY Provider, Turner Mednez [facility] - 06/07/2023 * * *Final Report* * * DATE OF EXAM: Jun 07 2023 1:59PM WOX 5291 - XR CHEST 2V FRONTAL/LAT / PROCEDURE REASON: Bronchitis * * * * Physician Interpretation * * * * EXAMINATION: CHEST RADIOGRAPH (2 VIEW FRONTAL & LATERAL) CLINICAL HISTORY: Bronchitis MQ: XC2_6 EXAM DATE/TIME: 06/07/2023 1:59 PM COMPARISON: No relevant prior studies available. RESULT: Lines, tubes, and devices: None. Lungs and pleura: No consolidation. No lung mass. No pleural effusion. No pneumothorax. Cardiomediastinal silhouette: Normal cardiomediastinal silhouette. Bones and soft tissues: There are degenerative changes in the spine. IMPRESSION IMPRESSION: No acute radiographic abnormality. It Director: PSCB Transcribe Date/Time: Jun 07 2023 3:35P Dictated by : ROSALINDA MEJIA MD This examination was interpreted and the report reviewed and electronically signed by: ROSALINDA MEJIA MD on Jun 07 2023 3:36PM EST [facility] Radiology Study observation (narrative) [facility] XR Chest PA and LateralOrder ed By: Cc Provider on 06-07-2023 [facility] Emergency Department Summary on 03-26-2021 Emergency Department Summary [facility] Medical Records Department [address] [place] [address] Emergency Department Summary 03/26/21 MR#: [id number] Acct: [id number] Name: WARREN MANRIQUEZ Rep #: [id number] : 1955 65 From: Hollis Sigala MD PCP: Dr. Ryder Preston, DO Status:PRE ER Location: ED HPI History of Present Illness Chief Complaint: Eye Problem Detail of Chief Complaint: Left eye foreign body Informant: patient Onset/Context/Timing Location: Left Eye Onset: Today Context: Sudden Onset Timing: Continuous Current Severity: Mild Maximum Severity: Mild Associated Symptoms History of injury: No Visual correction: Glasses Narrative Narrative: 65-year-old male wears glasses. Does not wear contacts and has never had eye surgery. He was changed Is currently thinks something got in his left eye. This is been going on for last several hours. He denies any other complaints. Previously he did have a foreign body then he needed to have removed by a bur. Prior similar symptoms: Yes Recent Illness/Hospitalizatio n: No PFSH PFSH Medical History (Updated 03/26/21 @ 15:[address] Hollis Sigala MD) Fatigue Swollen neck Home Medications lactobacillus combination no.9 4 billion cell capsule 4,000 mmu cells PO QDAY 12/11/17 [History Last Taken Unknown] aspirin 81 mg PO DAILY@0800 #30 tab.chew 01/23/18 [Rx Last Taken Unknown] atorvastatin 40 mg PO DAILY #30 tab 01/23/18 [Rx Last Taken Unknown] Allergy/AdvReac Type Severity Reaction Status Date / Time No Known Allergies Allergy Verified 03/26/21 14:36 Family History Sister Breast cancer Father Diabetes Surgical History History of foot surgery Hx of ultrasound guided needle biopsy Social History Smoking Status: Former smoker alcohol intake: never substance use type: does not use caffeine: Yes what type of physical activity do you participate in: none frequency: does not exercise seatbelt use: always ROS ROS ED ROS Narrative Denies. Review of Systems ROS Unobtainable: Denies due to encephalopathy Constitutional Constitutional ED: Denies fever(s) or subjective Eyes Eyes: Denies blurry vision, change in vision or diplopia ENT ENT ED: Denies ear pain Cardiovascular Cardiovascular: Denies chest pain Respiratory/Chest Respiratory/Chest: Denies dyspnea Gastrointestinal Gastrointestinal: Denies abdominal pain Genitourinary Genitourinary ED: Denies dysuria Musculoskeletal Musculoskeletal: Denies myalgias Integumentary Denies rash Neurologic Neurologic: Denies headache(s) Psychiatric Psychiatric: Denies depression Endocrine Endocrinology: Denies polyuria Hematologic/Lymphatic Hematologic/Lymphatic: Denies easy bruising Allergic/Immunologic Allergic/Immunologic ED: Denies urticaria EXAM Physical Exam Narrative Exam Narrative: 65-year-old male no acute distress HEENT exam there is a foreign body left at about 5:00 on the border of the iris. Mild redness. Increased tearing. No discharge. No orbital or periorbital swelling. Extraocular motions are intact. Pupils round reactive light bilaterally. There is no preauricular lymphadenopathy. There is no cellulitis. Otherwise exam unremarkable. Const Vital Signs: 03/26/21 14:34 Temperature 97.4 F L Temperature Source Temporal Pulse Rate 69 Respiratory Rate 16 Blood Pressure 158/89 H Blood Pressure Mean 112 Pulse Ox 100 Oxygen Delivery Method Room Air Positive well nourished and well developed; Negative for obese, cachectic, contractures or unkempt General Appearance ED: well developed and NAD; Negative for unkempt, cachectic or contractures Nutritional Appearance: Negative for cachectic or obese HEENT HEENT Narrative: Left eye foreign body at 5:00. I instilled tetracaine and fluorescein. Did a slit-lamp exam. Easily remove the foreign body with a wet Q-tip. On repeat examination there is a very minimal corneal abrasion with fluorescein uptake. There is no ulceration. He denies any visual change. atraumatic Eyes Periorbital: periorbital findings normal Eyelid: eyelids normal Resp normal respiratory effort, no retractions, no use of accessory muscles and clear to auscultation bilaterally Cardio regular rate, regular rhythm, S1 normal heart sound, S2 normal heart sound and no murmurs GI non-tender, non-distended and no masses Auscultation: normoactive bowel sounds Palpation: soft Extremity normal to inspection General Extremety ED: Negative for edema General Extremity: Negative for edema Neuro oriented x3 Sensorium / Orientation: alert, oriented to person, oriented to place and oriented to time; Negative for other Sensory E (more content not included)... Normal [facility] CORONAVIRUS PCR [CCL]on REF LAB REPORT Positive Normal [facility] Comment on above: Performed By: #### [id number] #### [facility],[address] [place] [address] SEND TO IC? YES Normal [facility] Comment on above: Performed By: #### [id number] #### [facility],[address] [place] [address] COVID 19 Result RETAIL ACCOUNT MANAGER Positive Abnormal [facility] Comment on above: Result Comment: Posi tive for COVID19 (SARS CoV2) by PCR.(*) This test was developed and its performance characteristics determined by [facility]'s [facility] [place]. This test has been authorized by FDA under an Emergency Use Authorization (EUA). This test has been validated in accordance with the FDA's Guidance Document Policy for Diagnostics Testing in Laboratories Certified to Perform High Complexity Testing under CLIA prior to Emergency use Authorization for Coronavirus Disease 2019 during the Public Health Emergency issued on July 26, 2019. [id number] [place] [address] Xavier Figueroa III, M.D. [id number] Performed By: #### 2 [id number] #### [facility],[address] [place] [address] COVID 19 Source RETAIL ACCOUNT MANAGER RETAIL ACCOUNT MANAGER Normal [facility] Comment on above: Performed By: #### 2 [id number] #### [facility],[address] [place] [address] Vital Signs Date Time Vital Sign Value Performing Clinician Sumit gonzalez 06-01-2024 09:30-0500 Body mass index (BMI) [Ratio] 31.47 kg/m2 Stacey Dillard APRN.CNP Work Phone: [facility] 06-01-2024 09:30-0500 Body temperature 97.2 [degF] Stacey Dillard APRN.CNP Work Phone: [facility] 06-01-2024 09:30-0500 Body weight 99.7 kg Stacey Dillard APRN.CNP Work Phone: [facility] 06-01-2024 09:30-0500 Diastolic blood pressure 76 mm[Hg] Stacey Dillard APRN.CNP Work Phone: [facility] 06-01-2024 09:30-0500 Heart rate 74 /min Stacey Praisler-Wood EMERY GRINDER.CALL CENTER ANALYST Work Phone: [facility] 06-01-2024 09:30-0500 Respiratory rate 16 /min Stacey Praisler-Wood EMERY GRINDER.CALL CENTER ANALYST Work Phone: [facility] 06-01-2024 09:30-0500 SaO2% (BldA) [Mass fraction] 97 % Stacey Praisler-Wood EMERY GRINDER.CALL CENTER ANALYST Work Phone: [facility] 06-01-2024 09:30-0500 Systolic blood pressure 122 mm[Hg] Stacey Praisler-Wood EMERY GRINDER.CALL CENTER ANALYST Work Phone: [facility] 11-08-2023 10:49-0400 Diastolic blood pressure 61 mm[Hg] Kishor Chou MD Work Phone: [facility] 11-08-2023 10:49-0400 Heart rate 66 /min Kishor Chou MD Work Phone: [facility] 11-08-2023 10:49-0400 Respiratory rate 16 /min Kishor Chou MD Work Phone: [facility] 11-08-2023 10:49-0400 SaO2% (BldA) [Mass fraction] 97 % Kishor Chou MD Work Phone: [facility] 11-08-2023 10:49-0400 Systolic blood pressure 112 mm[Hg] Kishor Chou MD Work Phone: [facility] 11-08-2023 09:41-0400 Body temperature 97 [degF] Kishor Chou MD Work Phone: [facility] 10-05-2023 14:52-0400 Body height 178 cm Ryder Preston DO Work Phone: [facility] 10-05-2023 14:52-0400 Body mass index (BMI) [Ratio] 30.18 kg/m2 Ryder Preston DO Work Phone: [facility] 10-05-2023 14:52-0400 Body weight 95.62 kg Ryder Preston DO Work Phone: [facility] 10-05-2023 14:52-0400 Diastolic blood pressure 64 mm[Hg] Ryder Preston DO Work Phone: [facility] 10-05-2023 14:52-0400 Heart rate 60 /min Ryder Preston DO Work Phone: [facility] 10-05-2023 14:52-0400 Respiratory rate 14 /min Ryder Preston DO Work Phone: [facility] 10-05-2023 14:52-0400 Systolic blood pressure 138 mm[Hg] Ryder Preston DO Work Phone: [facility] 04-28-2023 10:56-0500 Body temperature 97.9 [degF] Warren Craven MD Work Phone: [facility] 04-28-2023 10:56-0500 Body weight 95.25 kg Warren Craven MD Work Phone: [facility] 04-28-2023 10:56-0500 Diastolic blood pressure 84 mm[Hg] Warren Craven MD Work Phone: [facility] 04-28-2023 10:56-0500 Heart rate 76 /min Warren Craven MD Work Phone: [facility] 04-28-2023 10:56-0500 Respiratory rate 16 /min Warren Craven MD Work Phone: [facility] 04-28-2023 10:56-0500 SaO2% (BldA) [Mass fraction] 99 % Warren Craven MD Work Phone: [facility] 04-28-2023 10:56-0500 Systolic blood pressure 142 mm[Hg] Warren Craven MD Work Phone: [facility] 10-11-2021 12:30-0400 Body temperature 97.2 [degF] Jackson Pearl APRN.CNP Work Phone: [facility] 10-11-2021 12:30-0400 Body weight 90.27 kg Jackson Ryanne EMERY GRINDER.CALL CENTER ANALYST Work Phone: [facility] 10-11-2021 12:30-0400 Diastolic blood pressure 74 mm[Hg] Jackson Pearl EMERY GRINDER.CALL CENTER ANALYST Work Phone: [facility] 10-11-2021 12:30-0400 Heart rate 70 /min Jackson Pearl EMERY GRINDER.CALL CENTER ANALYST Work Phone: [facility] 10-11-2021 12:30-0400 Respiratory rate 16 /min Jackson Pearl EMERY GRINDER.CALL CENTER ANALYST Work Phone: [facility] 10-11-2021 12:30-0400 SaO2% (BldA) [Mass fraction] 98 % Jackson Pearl EMERY GRINDER.CALL CENTER ANALYST Work Phone: [facility] 10-11-2021 12:30-0400 Systolic blood pressure 124 mm[Hg] Jackson Pearl EMERY GRINDER.CALL CENTER ANALYST Work Phone: [facility] Encounters Encounter Date Encounter Type Care Provider Facility Start: 02-28-2025 End: 02-28-2025 ambulatory RYDER L PRESTON Facility:[place] Start: 06-01-2024 End: 06-01-2024 ambulatory RYDER L PRESTON Facility:[facility] Start: 06-01-2024 End: 06-01-2024 Patient encounter procedure Stacey Dillard EMERY GRINDER.CALL CENTER ANALYST Work Phone: [facility] Comment on above: Viral bronchitis (Pr imary Dx); Exposure to pneumonia; Wheezing Start: 03-08-2024 End: 03-11-2024 ambulatory Ryder L Perston DO Work Phone: [facility] [place] Comment on above: Covid positive Start: 11-14-2023 End: 11-14-2023 Patient encounter procedure Chapis Rangel EMERY GRINDER.CALL CENTER ANALYST Work Phone: General Surgery Comment on above: Adenomatous polyp of ascending colon (Primary Dx) Start: 11-08-2023 End: 11-08-2023 Subsequent hospital visit by physician Kishor Chou MD Work Phone: Ambulatory Surgery Comment on above: Screening for colon cancer [Z12.11] Start: 11-02-2023 Telephone encounter Ryder daniels DO Work Phone: [facility] [place] Comment on above: Results Start: 11-01-2023 End: 11-01-2023 Subsequent hospital visit by physician [facility] Work Phone: Radiology Comment on above: Screening for AAA (a bdominal aortic aneurysm) [Z13.6] Start: 10-10-2023 Patient encounter status Arnold Preston DO Work Phone: [facility] Start: 10-05-2023 End: 10-05-2023 Patient encounter procedure Ryder Preston DO Work Phone: [facility] [place] Comment on above: Well adult exam (Johanna mariam Dx); Encounter for immunization; Vertigo; Muscle spasm; Screening for colon cancer; Screening for AAA (abdominal aortic aneurysm); Carotid atherosclerosis, bilateral; Chest pain, unspecified type; Headache, unspecified headache type; Acute exacerbation of chronic low back pain; Benign neoplasm of colon, unspecified part of colon Start: 10-05-2023 End: 10-05-2023 Patient encounter status Ryder Preston DO Work Phone: [facility] Work Phone: Start: 07-11-2023 Patient encounter status Arnold Preston DO Work Phone: [facility] Work Phone: Start: 07-11-2023 Telephone encounter Ryder daniels DO Work Phone: [facility] Start: 06-07-2023 End: 06-07-2023 Subsequent hospital visit by physician [facility] Work Phone: Radiology Comment on above: Bronchitis [J40] Start: 04-28-2023 End: 04-28-2023 Patient encounter procedure Warren Craven MD Work Phone: [facility] Comment on above: Headache, unspecifie d headache type (Primary Dx) Start: 11-15-2021 ambulatory Ryder tyson DO Work Phone: [facility] Start: 11-15-2021 Patient encounter procedure Ryder Preston DO Work Phone: General Surgery Comment on above: Outpatient [place] [facility] Start: 10-11-2021 End: 10-11-2021 Patient encounter procedure Jackson Pearl EMERY GRINDER.CALL CENTER ANALYST Work Phone: [facility] Comment on above: Acute sinusitis, rec urrence not specified, unspecified location (Primary Dx) Start: 07-01-2020 End: 07-01-2020 Patient encounter procedure LAURENT Collins SHANNON [facility] Start: 09-14-2018 End: 09-14-2018 Patient encounter procedure Ed Pearl Facility:[facility] Procedures Date Procedure Procedure Detail Performing Clinician Start: 11-08-2023 Colonoscopy flx dx w /collj spec when pfrmd Ryder Preston DO Work Phone: Start: 11-08-2023 Colonoscopy Kishor moreno MD Work Phone: Start: 07-13-2023 Lipid 1996 panel - S regino or Plasma Ryder Preston DO Work Phone: Start: 06-07-2023 Radiologic exam ches t 2 views Chayo Goodrich EMERY GRINDER.CALL CENTER ANALYST Work Phone: Start: 08-21-2019 Lipid 1996 panel - S regino or Plasma Warren Craven MD Work Phone: Start: 12-13-2018 Adult depression scr eening assessment Jackson Pearl EMERY GRINDER.CALL CENTER ANALYST Work Phone: Start: 12-27-2015 Colonoscopy Jackson camara EMERY GRINDER.CALL CENTER ANALYST Work Phone: Plan of Treatment Date Care Activity Detail Author Start: 2032 RSV Vaccine (1 - 1-d ose 75+ series) RSV Vaccine (1 - 1-dose 75+ series) [facility] Start: 11-07-2028 Screening for malign ant neoplasm of colon [facility] Start: 07-13-2028 Lipid panel Lipid Screening [facility] Start: 07-13-2028 Prostate specific an tigen measurement Prostate Cancer Screening Discussion [facility] Start: 11-07-2026 Screening for malign ant neoplasm of colon [facility] Start: 07-13-2026 Diabetes Screening Diabetes Screenin g [facility] Start: 09-28-2025 Urine microalbumin profile DTa P,Tdap,Td Vaccine (2 - Td or Tdap) [facility] Start: 08-20-2024 Lipid 1996 panel - S regino or Plasma Lipid Screening [facility] Start: 08-20-2024 LIPID SCREEN LIPID SCREEN [facility] Start: 06-07-2024 Covid-19 Vaccine () Covid-19 Vaccine () [facility] Comment on above: Postponed from 01/26 (Declined at this time) Start: 06-07-2024 RSV Vaccine (1 - 1-d ose 60+ series) RSV Vaccine (1 - 1-dose 60+ series) [facility] Comment on above: Postponed from 04/21 (Declined at this time) Start: 06-07-2024 Shingrix Vaccine (1 of 2) Sánchez grix Vaccine (1 of 2) [facility] Comment on above: Postponed from 04/21 (Declined at this time) Start: 05-28-2024 Advance Directive Discussion Advance Directive Discussion [facility] Start: 03-08-2024 Shingrix Vaccine (2 of 3) Sánchez grix Vaccine (2 of 3) [facility] Start: 01-27-2024 Covid-19 Vaccine () Covid-19 Vaccine () [facility] Start: 01-27-2024 Covid-19 Vaccine () Covid-19 Vaccine () [facility] Start: 01-27-2024 Influenza vaccination C [facility] Start: 12-14-2023 PROSTATE CANCER SCRE ENING DISCUSSION PROSTATE CANCER SCREENING DISCUSSION [facility] Start: 12-06-2023 Shingrix Vaccine (2 of 3) Sánchez grix Vaccine (2 of 3) [facility] Start: 11-25-2023 Influenza vaccination Influenza Vacc ine (#1) [facility] Comment on above: Postponed from 01/26 (Declined at this time) Start: 11-08-2023 End: 11-08-2023 Patient encounter procedure Ambulatory Surgery Comment on above: Screening for colon cancer [Z12.11 Start: 11-01-2023 End: 11-01-2023 Patient encounter procedure Radiology Comment on above: Screening for AAA (a bdominal aortic aneurysm) [Z13.6] Chest pain, unspecif ied type [R07.9 Start: 11-01-2023 End: 11-01-2023 Patient encounter procedure 11/01/2023 12:30 PM EDT Office Visit Vasculary Surgery [address] [place] [address] Carotid atherosclerosis, bilateral [I65.23] [facility] Comment on above: Carotid atherosclero sis, bilateral [I65.23] Start: 05-28-2023 Advance Directive Discussion Advance Directive Discussion [facility] Start: 05-28-2023 Behavioral Health Screening Behavioral Health Screening [facility] Start: 05-28-2023 [facility] Start: 01-26-2023 Influenza vaccination Influenza Vacc ine (#1) [facility] Start: 08-20-2022 DIABETES SCREEN DIABETES SCREEN [facility] Start: 08-20-2022 Diabetes Screening Diabetes Screenin g [facility] Start: 05-28-2022 Advance Directive Discussion Advance Directive Discussion [facility] Start: 05-28-2022 Depression Assessment Depression Ass essment [facility] Start: 2022 Pneumococcal Vaccine : 65+ (1 - PCV) Pneumococcal Vaccine: 65+ (1 - PCV) [facility] Start: 2022 Pneumococcal Vaccine : 65+ (2 of 2 - PPSV23 or PCV20) Pneumococcal Vaccine: 65+ (2 of 2 - PPSV23 or PCV20) [facility] Start: 01-26-2022 Influenza vaccination [facility] Start: 12-14-2019 Adult depression scr eening assessment DEPRESSION SCREENING [facility] Start: 12-26-2018 Colonoscopy COLONOSCOPY [facility] Start: 12-26-2018 COLORECTAL CANCER SCREENING COLORECTAL CANCER SCREENING [facility] Start: 12-26-2018 Screening for malign ant neoplasm of colon [facility] Start: 2017 RSV Vaccine (1 - 1-d ose 60+ series) RSV Vaccine (1 - 1-dose 60+ series) [facility] Start: 2007 SHINGRIX VACCINE (1 of 2) SÁNCHEZ GRIX VACCINE (1 of 2) [facility] Start: 2002 COLOGUARD (FIT-DNA) COLOGUARD (FIT-D NA) [facility] Start: [address] COLONOGRAPHY [facility] Start: 2002 FECAL OCCULT BLOOD FECAL OCCULT BLOO D [facility] Start: 2002 Screening for malign ant neoplasm of colon [facility] Start: 2002 SIGMOIDOSCOPY SIGMOIDOSCOPY [facility] Start: 1976 Urine microalbumin profile [facility] Start: 1975 Anxiety Screening Anxiety Screening [facility] Start: 1975 Depression Screening Depression Scre ening [facility] Start: 1975 HIV SCREENING HIV SCREENING [facility] Start: 1962 COVID-19 VACCINE (#1) COVID-19 VACCI NE (#1) [facility] Start: 1955 COVID-19 VACCINE (#1) COVID-19 VACCI NE (#1) [facility] Start: 1955 Abdominal Aortic Ane urysm Screening Abdominal Aortic Aneurysm Screening [facility] Start: 1955 Abdominal aortic ane urysm screening Abdominal Aortic Aneurysm Screening [facility] End: 10-04-2024 Echocardiography ECHO Cardiology Routine Chest pain, unspecified type 1 Occurrences starting 10/05/2023 until 10/04/2024 [facility] Comment on above: 1 Occurrences starti ng 10/05/2023 until 10/04/2024 End: 11-15-2022 Screening colonoscopy COLONOSCOPY SCREENING Endoscopy Routine Colon cancer screening 1 Occurrences starting 12/07/2021 until 11/15/2022 Work Phone: Comment on above: 1 Occurrences starti ng 12/07/2021 until 11/15/2022 End: 10-04-2024 Screening colonoscopy COLONOSCOPY SCREENING Endoscopy Routine Screening for colon cancer 1 Occurrences starting 10/05/2023 until 10/04/2024 Work Phone: Comment on above: 1 Occurrences starti ng 10/05/2023 until 10/04/2024 SURGICAL PATHOLOGY Work Phone: Comment on above: Release Upon Mark Anthonyin g for 1 Occurrences starting 11/08/2023, 1 completed End: 11-03-2024 US Abdominal Aorta for screening US SCREENING FOR AAA Radiology Routine Screening for AAA (abdominal aortic aneurysm) 1 Occurrences starting 10/05/2023 until 11/03/2024 [facility] Comment on above: 1 Occurrences starti ng 10/05/2023 until 11/03/2024 US Abdominal Aorta f or screening US SCREENING FOR AAA Radiology Routine Screening for AAA (abdominal aortic aneurysm) 11/01/2023 2:16 PM EDT Work Phone: End: 10-04-2024 US Carotid arteries - bilateral US CAROTID ARTERIES [facility] Routine Carotid atherosclerosis, bilateral 1 Occurrences starting 10/05/2023 until 10/04/2024 [facility] Comment on above: 1 Occurrences starti ng 10/05/2023 until [facility] Immunization Date Immunization Notes Care Provider Lacey valle 01-12-2024 zoster vaccine, live Ryedr Preston DO Work Phone: [facility] 10-11-2023 zoster vaccine, live Us 1 Work Phone: [facility] 10-05-2023 pneumococcal Conjuga te, unspecified formulation Ryder Preston DO Work Phone: [facility] 10-05-2023 pneumococcal conjuga te (PCV20) vaccine, 20 valent (PREVNAR 20) Ryder Preston DO Work Phone: [facility] Payers Date Payer Category Payer Unknown [employer] [id number] 2021-Present [phone] [address] [place] [address] PPO [id number] 2021 Unknown [id number] 2018 Unknown 2006 Unknown [employer] OOS [id number] 2006-Present [phone] [address] [place] [address] PPO [id number] 1957 Unknown [id number] 1955 Unknown [id number] Unknown [id number] Social History Date Type Detail Facility Start: 11-16-2015 End: 06-01-2024 Tobacco smoking status NHIS Ex-smoker [facility] Work Phone: History of tobacco use Cigarette Smoker [facility] Work Phone: Start: 11-16-2015 End: 06-01-2024 Tobacco use and exposure Smokeless tobacco non-user [facility] Work Phone: Start: 10-11-2021 End: 05-19-2023 Alcohol intake Current non-drinker of alcohol (finding) [facility] Start: 1955 Sex Assigned At Not on file [facility] History of tobacco use Current smoker [facility] Start: 05-02-2020 End: 04-28-2023 Cigarette pack-years [facility] Start: 05-02-2020 End: 04-28-2023 Tobacco use panel [facility] Adult Depression Screening Assessment 0 [facility] Has the [place] Boot, or ScoreStreak threatened to shut off services in your home in past 12Mo No [facility] Are you now , , , , never or living with a partner? [facility] How often to you hav e a drink containing alcohol? Monthly or less [facility] How many standard drinks containing alcohol do you have on a typical day? 1 or 2 [facility] How often do you hav e 6 or more drinks on 1 occasion? Never [facility] Do you feel stress - tense, restless, nervous, or anxious, or unable to sleep at night because your mind is troubled all the time - these days [OSQ] Not at all [facility] (I/We) worried wheth er (my/our) food would run out before (I/we) got money to buy more. Never true [facility] Start: 11-08-2023 End: 06-01-2024 Alcohol intake Current drinker of alcohol (finding) [facility] Start: 11-08-2023 Alcohol [facility] Clinical Notes 10-11-2021 to 02-28-2025 Patient InstructionsPraisler-Stacey Ward APRN.[facility] CENTER ANALYST - 06/01/2024 9:43 AM ESTTelephone Encounter - Shanon Peacock MA - 03/11/2024 3:09 PM Chapis Orellana APRN.[facility] CENTER ANALYST - 11/14/2023 10:59 AM EDT Note Date & Type Note Facility 02-28-2025 Note HNO ID: [id number] Author: BELÉN LLOYD APRN.CALL CENTER ANALYST Service: ? Author Type: Nurse Practitioner Type: Progress Notes Filed: 02/28/2025 12:28 Note Text: [facility] Manriquez is a 69 year old male. Patient presents with: Derm Problem: infected cyst in groin area with drainage and pain x 3-4 days The history is provided by the patient. No project portfolio analyst was used. Inguinal Lesion: - Chronic lesion in the inguinal region, described as a knot present for years without prior issues. - Recently became sore and swollen, prompting the patient to express purulent discharge by squeezing the lesion. - Currently experiencing serosanguinous discharge. - Denies known drug allergies. - Denies any known kidney function issues. - Frequent walking at work reportedly exacerbates irritation. Review of Systems Constitutional: Negative for fever. Musculoskeletal: Negative for arthralgias and neck pain. Skin: Negative for color change. Purulent drainage and lesion Neurological: Negative for headaches. Psychiatric/Behavioral: Negative for confusion. Skin: (+) inguinal swelling, (+) inguinal pain, (+) purulent discharge, (+) bloody discharge Objective BP 130/72 Pulse 68 Temp 36.1 ?C (96.9 ?F) Resp 16 Wt 98.5 kg (217 lb 2.5 oz) SpO2 98% BMI 31.09 kg/m? Physical Exam Constitutional: General: He is not in acute distress. HENT: Head: Normocephalic and atraumatic. Eyes: Conjunctiva/sclera: Conjunctivae normal. Pupils: Pupils are equal, round, and reactive to light. Pulmonary: Effort: Pulmonary effort is normal. Musculoskeletal: Cervical back: Normal range of motion and neck supple. Skin: General: Skin is warm and dry. Findings: Rash present. Rash is pustular. Comments: Small pea size area of redness and purulent drainage Neurological: Mental Status: He is alert and oriented to person, place, and time. General: No acute distress. Skin: Erythematous, fluctuant lesion in the inguinal region with purulent discharge. {Recording using [employer]! software for draft documentation of the visit was discussed with the patient/authorized aircraft sales representative; all questions welcomed and answered. Patient/authorized aircraft sales representative agreed to proceed History and Record Review External record(s) reviewed: prior labs/imaging and prior outpatient record. Findings from review of outpatient records: no record of problem in groin Findings from review of prior labs/imaging: Previous Renal Function Panel Reviewed No results within last 365 days. ASSESSMENT/PLAN: 1. Abscess - ICD9: 682.9, ICD10: L02.91 - Begin treatment with Cephalaxin (Keflex) - No lymphangetic streaking, this was defined for patient to watch for and to seek medical care immediately if appears - open and draining, - Mupirocin topicallly Diagnosis and treatment plan were discussed and questions were answered to the patient's satisfaction. Pt acknowledged understanding of concepts and follow up plan. Specific signs and symptoms that would indicate the need for higher level of care were discussed in detail warranting prompt ER evaluation. Belén Lloyd APRN.[facility] 06-01-2024 Instructions Stacey Dillard APRN.[facility] - 06/01/2024 9:46 AM EST ASSESSMENT/PLAN: 1. Viral bronchitis - ICD9: 466.0, ICD10: J20.8 (primary diagnosis) - PREDNISONE 10 MG TABLET 2. Exposure to pneumonia - ICD9: V01.89, ICD10: Z20.89 - DOXYCYCLINE MONOHYDRATE 100 MG TABLET- if symptoms not improving in 3-5 days, may begin taking antibiotic. 3. Wheezing - ICD9: 786.07, ICD10: R06.2 - ALBUTEROL SULFATE HFA 90 MCG/ACTUATION AEROSOL INHALER - INHALATIONAL SPACING DEVICE - Follow-up with your PCP in 3-5 days if symptoms have not improved or sooner if symptoms worsen - Discussed red flags and need for immediate medical evaluation if any occur. - Discussed supportive care treatment with fluids, rest and analgesia. - Discussed expected course of illness Stacey Dillard APRN.[facility] CENTER ANALYST documented in this encounter [facility] 06-01-2024 Note HNO ID: [id number] Author: STACEY DILLARD APRN.[facility] CENTER ANALYST Service: ? Author Type: Nurse Practitioner Type: Progress Notes Filed: 06/01/2024 09:46 Note Text: Subjective Nasal Congestion Associated symptoms include congestion, coughing and a sore throat. Pertinent negatives include no chills, ear pain or shortness of breath. Warren Manriquez is a 69 year old male who presents with cough, nasal congestion, chest congestion and sore throat for the past several days. He has been taking zyrtec at home daily. His was hospitalized recently for pneumonia. He has not had a fever. He states he can hear himself wheezing at night. Review of Systems Constitutional: Negative for chills, fever and malaise/fatigue. HENT: Positive for congestion and sore throat. Negative for ear pain. Respiratory: Positive for cough, sputum production and wheezing. Negative for shortness of breath. Cardiovascular: Negative for chest pain. Gastrointestinal: Negative for diarrhea, nausea and vomiting. Musculoskeletal: Negative for myalgias. BP 122/76 Pulse 74 Temp 36.2 ?C (97.2 ?F) Resp 16 Wt 99.7 kg (219 lb 12.8 oz) SpO2 97% BMI 31.47 kg/m? PAST MEDICAL HISTORY Diagnosis Date GERD (gastroesophageal reflux disease) hemorrhoid Pre-diabetes Tubular adenoma 2023 Vertigo PAST SURGICAL HISTORY Procedure Laterality Date COLONOSCOPY 2015 COLONOSCOPY FLX DX W/COLLJ SPEC WHEN PFRMD 10/2023 repeat 5yrs F SIGMOIDOSCOPY FLEXIBLE negative--hemorrhoids PAST SURGICAL HISTORY OF Right foot surgery--calcium deposit PAST SURGICAL HISTORY OF total dental extraction STRESS TEST 2018 normal THYROID BIOPSY US 2018 normal, no repeat indicated ALLERGIES Flonase [Fluticasone] MEDICATIONS cholecalciferol (VITAMIN D-3) 5,000 unit tab Take 5,000 Units by mouth once daily. meclizine (ANTIVERT) 25 mg tab Take 1 tablet by mouth three times a day as needed (dizziness). predniSONE (DELTASONE) 10 mg tablet Take 4 tabs daily for 3 days, then 2 tabs daily for 3 days, then 1 tab daily for 3 days with food. albuterol HFA (PROVENTIL HFA, VENTOLIN HFA) 90 mcg/actuation inhaler Inhale 2 Puffs as instructed every 4 hours as needed for wheezing/shortness of breath. Inhalational Spacing Device 1 Device one time only for 1 dose. doxycycline monohydrate 100 mg tablet Take 1 tablet by mouth two times a day for 7 days. FAMILY HISTORY Problem Relation Age of Onset Ischemic Heart Disease Maternal Grandfather Diabetes Maternal Grandmother Blood Disease Mother unknown Coronary Artery Disease Father Diabetes Father Social History Tobacco Use Smoking status: Former Current packs/day: 0.00 Types: Cigarettes Smokeless tobacco: Never Substance Use Topics Alcohol use: Yes Comment: rarely Drug use: No Objective Physical Exam Vitals and nursing note reviewed. Constitutional: General: He is not in acute distress. Appearance: Normal appearance. He is not ill-appearing. HENT: Right Ear: Tympanic membrane, ear canal and external ear normal. Left Ear: Tympanic membrane, ear canal and external ear normal. Nose: Nose normal. Mouth/Throat: Mouth: Mucous membranes are moist. Pharynx: Oropharynx is clear. Uvula midline. No oropharyngeal exudate or posterior oropharyngeal erythema. Cardiovascular: Rate and Rhythm: Normal rate and regular rhythm. Heart sounds: Normal heart sounds. Pulmonary: Effort: Pulmonary effort is normal. No respiratory distress. Breath sounds: Examination of the right-lower field reveals wheezing. Examination of the left-lower field reveals wheezing. Wheezing present. No rales. Comments: Bilateral slight expiratory wheeze Musculoskeletal: Cervical back: Neck supple. Lymphadenopathy: Cervical: No cervical adenopathy. Skin: General: Skin is warm and dry. Findings: No erythema or rash. Neurological: Mental Status: He is alert. ASSESSMENT/PLAN: 1. Viral bronchitis - ICD9: 466.0, ICD10: J20.8 (primary diagnosis) - PREDNISONE 10 MG TABLET 2. Exposure to pneumonia - ICD9: V01.89, ICD10: Z20.89 - DOXYCYCLINE MONOHYDRATE 100 MG TABLET-if symptoms not improving in 3-5 days, may begin taking antibiotic. 3. Wheezing - ICD9: 786.07, ICD10: R06.2 - ALBUTEROL SULFATE HFA 90 MCG/ACTUATION AEROSOL INHALER - INHALATIONAL SPACING DEVICE - Follow-up with your PCP in 3-5 days if symptoms have not improved or sooner if symptoms worsen - Discussed red flags and need for immediate medical evaluation if any occur. - Discussed supportive care treatment with fluids, rest and analgesia. - Discussed expected course of illness Stacey Dillard APRN.[facility] 06-01-2024 History of Present illness Narrative Subjective Nasal Congestion Associated symptoms include congestion, coughing and a sore throat. Pertinent negatives include no chills, ear pain or shortness of breath. Warren Manriquez is a 69 year old male who presents with cough, nasal congestion, chest congestion and sore throat for the past several days. He has been taking zyrtec at home daily. His was hospitalized recently for pneumonia. He has not had a fever. He states he can hear himself wheezing at night. Review of Systems Constitutional: Negative for chills, fever and malaise/fatigue. HENT: Positive for congestion and sore throat. Negative for ear pain. Respiratory: Positive for cough, sputum production and wheezing. Negative for shortness of breath. Cardiovascular: Negative for chest pain. Gastrointestinal: Negative for diarrhea, nausea and vomiting. Musculoskeletal: Negative for myalgias. BP 122/76 Pulse 74 Temp 36.2 C (97.2 F) Resp 16 Wt 99.7 kg (219 lb 12.8 oz) SpO2 97% BMI 31.47 kg/m PAST MEDICAL HISTORY Diagnosis Date GERD (gastroesophageal reflux disease) hemorrhoid Pre-diabetes Tubular adenoma 2023 Vertigo PAST SURGICAL HISTORY Procedure Laterality Date COLONOSCOPY 2015 COLONOSCOPY FLX DX W/COLLJ SPEC WHEN PFRMD 10/2023 repeat 5yrs F SIGMOIDOSCOPY FLEXIBLE negative--hemorrhoids PAST SURGICAL HISTORY OF Right foot surgery--calcium deposit PAST SURGICAL HISTORY OF total dental extraction STRESS TEST 2018 normal THYROID BIOPSY US 2018 normal, no repeat indicated ALLERGIES Flonase [Fluticasone] MEDICATIONS cholecalciferol (VITAMIN D-3) 5,000 unit tab Take 5,000 Units by mouth once daily. meclizine (ANTIVERT) 25 mg tab Take 1 tablet by mouth three times a day as needed (dizziness). predniSONE (DELTASONE) 10 mg tablet Take 4 tabs daily for 3 days, then 2 tabs daily for 3 days, then 1 tab daily for 3 days with food. albuterol HFA (PROVENTIL HFA, VENTOLIN HFA) 90 mcg/actuation inhaler Inhale 2 Puffs as instructed every 4 hours as needed for wheezing/shortness of breath. Inhalational Spacing Device 1 Device one time only for 1 dose. doxycycline monohydrate 100 mg tablet Take 1 tablet by mouth two times a day for 7 days. FAMILY HISTORY Problem Relation Age of Onset Ischemic Heart Disease Maternal Grandfather Diabetes Maternal Grandmother Blood Disease Mother unknown Coronary Artery Disease Father Diabetes Father Social History Tobacco Use Smoking status: Former Current packs/day: 0.00 Types: Cigarettes Smokeless tobacco: Never Substance Use Topics Alcohol use: Yes Comment: rarely Drug use: No Objective Physical Exam Vitals and nursing note reviewed. Constitutional: General: He is not in acute distress. Appearance: Normal appearance. He is not ill-appearing. HENT: Right Ear: Tympanic membrane, ear canal and external ear normal. Left Ear: Tympanic membrane, ear canal and external ear normal. Nose: Nose normal. Mouth/Throat: Mouth: Mucous membranes are moist. Pharynx: Oropharynx is clear. Uvula midline. No oropharyngeal exudate or posterior oropharyngeal erythema. Cardiovascular: Rate and Rhythm: Normal rate and regular rhythm. Heart sounds: Normal heart sounds. Pulmonary: Effort: Pulmonary effort is normal. No respiratory distress. Breath sounds: Examination of the right-lower field reveals wheezing. Examination of the left-lower field reveals wheezing. Wheezing present. No rales. Comments: Bilateral slight expiratory wheeze Musculoskeletal: Cervical back: Neck supple. Lymphadenopathy: Cervical: No cervical adenopathy. Skin: General: Skin is warm and dry. Findings: No erythema or rash. Neurological: Mental Status: He is alert. ASSESSMENT/PLAN: 1. Viral bronchitis - ICD9: 466.0, ICD10: J20.8 (primary diagnosis) - PREDNISONE 10 MG TABLET 2. Exposure to pneumonia - ICD9: V01.89, ICD10: Z20.89 - DOXYCYCLINE MONOHYDRATE 100 MG TABLET-if symptoms not improving in 3-5 days, may begin taking antibiotic. 3. Wheezing - ICD9: 786.07, ICD10: R06.2 - ALBUTEROL SULFATE HFA 90 MCG/ACTUATION AEROSOL INHALER - INHALATIONAL SPACING DEVICE - Follow-up with your PCP in 3-5 days if symptoms have not improved or sooner if symptoms worsen - Discussed red flags and need for immediate medical evaluation if any occur. - Discussed supportive care treatment with fluids, rest and analgesia. - Discussed expected course of illness Stacey Dillard APRN.[facility] documented in this encounter [facility] 03-11-2024 Telephone encounter Note Pt has not responded to message regarding appt, appt no longer available. Shanon Peacock MA [facility] 03-11-2024 Miscellaneous Notes Pt has not responded to message regarding appt, appt no longer available. Shanon Peacock MA Offered pt an appt this afternoon at 4:40 PM for VV with Dr. Green. Awaiting pt response. Shanon Peacock MA documented in this encounter [facility] 03-11-2024 Telephone encounter Note Offered pt an appt this afternoon at 4:40 PM for VV with Dr. Green. Awaiting pt response. Shanon Peacock MA [facility] 11-14-2023 History of Present illness Narrative FOLLOW UP VISIT - ENDOSCOPY NAME: Warren Collins [facility] NO.: [id number] DATE OF SERVICE: 11/14/2023 : 1955 REFERRING PHYSICIAN: Ryder Preston DO Warren is a patient I am following for history of colonic polyps. Dr. Chou performed lower endoscopy on 11/08/2023. The patient was found to have Impression: -One diminutive polyp in the ascending colon, removed with a jumbo cold forceps. Resected and retrieved. -Non-bleeding internal hemorrhoids. -The examination was otherwise normal. Pathology demonstrated: FINAL DIAGNOSIS Ascending colon, polypectomy: - Tubular adenoma. The patient notes no complaints since the procedure. VITALS: There were no vitals taken for this visit. General: patient is alert, cooperative, pleasant and in no acute distress On examination, the abdomen is benign. Assessment IMPRESSION: adenomatous polyp, history of colonic polyps PLAN: The operative findings and pathology report were reviewed with the patient, and the patient has had the opportunity to ask questions and have questions answered. If the patient notes any problems or changes in bowel function, the patient should contact me immediately. Otherwise I recommend follow up endoscopy 5 years. HM updated. Patient verbalized understanding of all above and agreed with the plan Diagnoses: (D12.2) Adenomatous polyp of ascending colon (primary encounter diagnosis) Chapis Rangel APRN.CALL CENTER ANALYST documented in this encounter [facility] 11-08-2023 Note Formatting of this n ote might be different from the original. The patient received a copy of Colonoscopy discharge instructions that contain information for how to contact the physician who performed the procedure and when to seek medical care. [facility] 11-08-2023 Miscellaneous Notes The patient received a copy of Colonoscopy discharge instructions that contain information for how to contact the physician who performed the procedure and when to seek medical care. documented in this encounter [facility] 11-08-2023 History and physical note CC: Warren Manriquez is a 68 year old male who presents to the office for physical HPI: Low back pain, recently has had a flare up of symptoms after working around home/outside, no falls, no new bowel or bladder changes. Hx of arthritis, hasn't had recent xrays. No fevers or chills or skin changes. Use of steroids and muscle relaxant in the past for flare up with benefit. longterm use of tobacco, interested in AAA screening Hx of carotid atherosclerosis, hasn't had recent carotid US, no syncope or new headaches but does have chronic intermittent global headaches that come and go. Has had intermittent vertigo symptoms. No head injuries. Has intermittent feeling of chest tightness, denies any current symptoms. No known hx of CAD but hasn't had any recent testing. Willing to have repeat colonoscopy PAST MEDICAL HISTORY PAST MEDICAL HISTORY Diagnosis Date GERD (gastroesophageal reflux disease) hemorrhoid Pre-diabetes Vertigo PAST SURGICAL HISTORY PAST SURGICAL HISTORY Procedure Laterality Date COLONOSCOPY 2015 F SIGMOIDOSCOPY FLEXIBLE negative--hemorrhoids PAST SURGICAL HISTORY OF Right foot surgery--calcium deposit PAST SURGICAL HISTORY OF total dental extraction STRESS TEST 2018 normal THYROID BIOPSY US 2018 normal, no repeat indicated Social History: SOCIAL HISTORY Social History Tobacco Use Smoking status: Former Packs/day: 0.00 Years: 30.00 Additional pack years: 0.00 Total pack years: 0.00 Types: Cigarettes Smokeless tobacco: Never Substance Use Topics Alcohol use: No Drug use: No FAMILY HISTORY FAMILY HISTORY Problem Relation Age of Onset Ischemic Heart Disease Maternal Grandfather Diabetes Maternal Grandmother Blood Disease Mother unknown Coronary Artery Disease Father Diabetes Father Current Outpatient prescriptions: CURRENT MEDICATIONS cholecalciferol (VITAMIN D-3) 5,000 unit tab Take 5,000 Units by mouth once daily. meclizine (ANTIVERT) 25 mg tab Take 1 tablet by mouth three times a day as needed (dizziness). diazePAM (VALIUM) 10 mg tablet Take 1 tablet by mouth every 8 hours as needed (muscle spasm) for up to 30 days. predniSONE (DELTASONE) 10 mg tablet Take 4 tabs daily for 3 days, then 2 tabs daily for 3 days, then 1 tab daily for 3 days with food. cyclobenzaprine (FLEXERIL) 10 mg tablet Take 1 tablet by mouth three times a day as needed for muscle spasm for up to 15 days. benzonatate (TESSALON PERLES) 100 mg capsule Take 1 capsule by mouth three times a day as needed for cough. sildenafil (VIAGRA) 100 mg tablet Take 1 PO daily as needed for erectile dysfunction. Do not exceed more than 1 tablet per 24 hours. Allergies: ALLERGIES ALLERGIES Allergen Reactions Flonase [Fluticason* Other: See Comments Made pt no feel well and vomit ROS: See HPI PE: Vitals 10/05/23 1452 BP: 138/64 BP Site: Left Arm BP Position: Sitting BP Cuff Size: Large Adult Pulse: 60 Resp: 14 Weight: 95.6 kg (210 lb 12.8 oz) Height: 178 cm (5' 10.08) Gen: A&O, NAD, non-toxic appearing, Pleasant, cooperative HEENT: NT/AC, PERRLA, wearing glasses, EOMs intact b/l, nares clear and patent b/l, pharynx without erythema, exudate or lesions. Uvula midline. MMM, EACs without erythema or debris. TMs pearly corbin with intact landmarks b/l. Neck: supple, No cervical LAD, no thyromegaly, no carotid bruits CV: RRR, normal S1 and S2, no murmurs, no gallops, no rubs, Pulses 2+ and symmetric in UE and LE b/l Lungs: normal respiratory effort, CTA b/l, no wheezing or rhonchi or rales Abd: soft, obese, NT, ND, +BS, no hepatosplenomegaly MS: reduced ROM lumbar spine with paraspinal muscle tension and muscles spasm and antalgic gait Neuro: CN II-XII intact b/l, strength 5/5 b/l UE and LE, DTRs 2/4 UE and LE, sensation intact. Skin: warm, dry, intact, No rashes or lesions on exposed skin. ASSESSMENT/PLAN: 1. Well adult exam - ICD9: V70.0, ICD10: Z00.00 (primary diagnosis) - Counseled on healthy diet and regular exercise - Discussed need for and benefit of weight loss. BMI 30.18 kg/(m^2) 2. Encounter for immunization - ICD9: V03.89, ICD10: Z23 - PNEUMOCOCCAL VACCINE, 20 VALENT (PREVNAR 20) 3. Vertigo - ICD9: 780.4, ICD10: R42 rx prn, intermittent symptoms - MECLIZINE 25 MG TABLET 4. Muscle spasm - ICD9: 728.85, ICD10: M62.838 Need for rx prednisone. Has recent lumbar spine flare up of pain - DIAZEPAM 10 MG TABLET 5. Screening for colon cancer - ICD9: V76.51, ICD10: Z12.11 - COLONOSCOPY SCREENING 6. Screening for AAA (abdominal aortic aneurysm) - ICD9: V81.2, ICD10: Z13.6 - US SCREENING FOR AAA 7. Carotid atherosclerosis, bilateral - ICD9: 433.10, 433.30, ICD10: I65.23 - US CAROTID ARTERIES [facility] 8. Chest pain, unspecified type - ICD9: 786.50, ICD10: R07.9 Chest pain of unclear etiology, patient with significant risk factor(s) of family history of early coronary heart disease, Hypertension, Hyperlipidemia, and smoking No current symptoms Need likely for nuclear stress testing as well. - ECHO - PERFLUTREN LIPID MICROSPHERES 1.1 MG/ML INJECTION IN NS 10 ML - SODIUM CHLORIDE 0.9 % (FLUSH) INJECTION SYRINGE 9. Headache, unspecified headache type - ICD9: 784.0, ICD10: R51.9 rx refilled, rare use - CYCLOBENZAPRINE 10 MG TABLET 10. Acute exacerbation of chronic low back pain - ICD9: 724.2, 338.19, 338.29, ICD10: M54.50, G89.29 rx as below Use of ice and heating pad alternating Need for PHYSICAL THERAPY if not improving as well as xrays - PREDNISONE 10 MG TABLET - CYCLOBENZAPRINE 10 MG TABLET 11. Benign neoplasm of colon, unspecified part of colon - ICD9: 211.3, ICD10: D12.6 Need for colonoscopy Ryder Preston DO UPDATED HISTORY AND PHYSICAL EXAMINATION SERVICE DATE: 11/08/2023 SERVICE TIME: 10:14 AM PHYSICAL EXAM MUST BE COMPLETED ON ADMISSION The History and Physical (completed in the past 30 days) has been reviewed and the patient has been examined. The contents accurately reflect the patient's condition with the following additions or revisions since the H&P was completed. Examination indicates no changes. This H&P can be found in the attached. SIGNATURE: Kishor Chou III, MD PATIENT NAME: Warren Manriquez DATE: November 08, 2023 TIME: 10:14 AM [facility] 11-08-2023 History and physical note CC: Warren Manriquez is a 68 year old male who presents to the office for physical HPI: Low back pain, recently has had a flare up of symptoms after working around home/outside, no falls, no new bowel or bladder changes. Hx of arthritis, hasn't had recent xrays. No fevers or chills or skin changes. Use of steroids and muscle relaxant in the past for flare up with benefit. 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 Has had intermittent vertigo symptoms. No head injuries. Has intermittent feeling of chest tightness, denies any current symptoms. No known hx of CAD but hasn't had any recent testing. Willing to have repeat colonoscopy PAST MEDICAL HISTORY PAST MEDICAL HISTORY Diagnosis Date GERD (gastroesophageal reflux disease) hemorrhoid Pre-diabetes Vertigo PAST SURGICAL HISTORY PAST SURGICAL HISTORY Procedure Laterality Date COLONOSCOPY 2016 F SIGMOIDOSCOPY FLEXIBLE negative--hemorrhoids PAST SURGICAL HISTORY OF Right foot surgery--calcium deposit PAST SURGICAL HISTORY OF total dental extraction STRESS TEST 2018 normal THYROID BIOPSY US 2018 normal, no repeat indicated Social History: SOCIAL HISTORY Social History Tobacco Use Smoking status: Former Packs/day: 0.00 Years: 30.00 Additional pack years: 0.00 Total pack years: 0.00 Types: Cigarettes Smokeless tobacco: Never Substance Use Topics Alcohol use: No Drug use: No FAMILY HISTORY FAMILY HISTORY Problem Relation Age of Onset Ischemic Heart Disease Maternal Grandfather Diabetes Maternal Grandmother Blood Disease Mother unknown Coronary Artery Disease Father Diabetes Father Current Outpatient prescriptions: CURRENT MEDICATIONS cholecalciferol (VITAMIN D-3) 5,000 unit tab Take 5,000 Units by mouth once daily. meclizine (ANTIVERT) 25 mg tab Take 1 tablet by mouth three times a day as needed (dizziness). diazePAM (VALIUM) 10 mg tablet Take 1 tablet by mouth every 8 hours as needed (muscle spasm) for up to 30 days. predniSONE (DELTASONE) 10 mg tablet Take 4 tabs daily for 3 days, then 2 tabs daily for 3 days, then 1 tab daily for 3 days with food. cyclobenzaprine (FLEXERIL) 10 mg tablet Take 1 tablet by mouth three times a day as needed for muscle spasm for up to 15 days. benzonatate (TESSALON PERLES) 100 mg capsule Take 1 capsule by mouth three times a day as needed for cough. sildenafil (VIAGRA) 100 mg tablet Take 1 PO daily as needed for erectile dysfunction. Do not exceed more than 1 tablet per 24 hours. Allergies: ALLERGIES ALLERGIES Allergen Reactions Flonase [Fluticason* Other: See Comments Made pt no feel well and vomit ROS: See HPI PE: Vitals 10/05/23 1452 BP: 138/64 BP Site: Left Arm BP Position: Sitting BP Cuff Size: Large Adult Pulse: 60 Resp: 14 Weight: 95.6 kg (210 lb 12.8 oz) Height: 178 cm (5' 10.08) Gen: A&O, NAD, non-toxic appearing, Pleasant, cooperative HEENT: NT/AC, PERRLA, wearing glasses, EOMs intact b/l, nares clear and patent b/l, pharynx without erythema, exudate or lesions. Uvula midline. MMM, EACs without erythema or debris. TMs pearly corbin with intact landmarks b/l. Neck: supple, No cervical LAD, no thyromegaly, no carotid bruits CV: RRR, normal S1 and S2, no murmurs, no gallops, no rubs, Pulses 2+ and symmetric in UE and LE b/l Lungs: normal respiratory effort, CTA b/l, no wheezing or rhonchi or rales Abd: soft, obese, NT, ND, +BS, no hepatosplenomegaly MS: reduced ROM lumbar spine with paraspinal muscle tension and muscles spasm and antalgic gait Neuro: CN II-XII intact b/l, strength 5/5 b/l UE and LE, DTRs 2/4 UE and LE, sensation intact. Skin: warm, dry, intact, No rashes or lesions on exposed skin. ASSESSMENT/PLAN: 1. Well adult exam - ICD9: V70.0, ICD10: Z00.00 (primary diagnosis) - Counseled on healthy diet and regular exercise - Discussed need for and benefit of weight loss. BMI 30.18 kg/(m^2) 2. Encounter for immunization - ICD9: V03.89, ICD10: Z23 - PNEUMOCOCCAL VACCINE, 20 VALENT (PREVNAR 20) 3. Vertigo - ICD9: 780.4, ICD10: R42 rx prn, intermittent symptoms - MECLIZINE 25 MG TABLET 4. Muscle spasm - ICD9: 728.85, ICD10: M62.838 Need for rx prednisone. Has recent lumbar spine flare up of pain - DIAZEPAM 10 MG TABLET 5. Screening for colon cancer - ICD9: V76.51, ICD10: Z12.11 - COLONOSCOPY SCREENING 6. Screening for AAA (abdominal aortic aneurysm) - ICD9: V81.2, ICD10: Z13.6 - US SCREENING FOR AAA 7. Carotid atherosclerosis, bilateral - ICD9: 433.10, 433.30, ICD10: I65.23 - US CAROTID ARTERIES [facility] 8. Chest pain, unspecified type - ICD9: 786.50, ICD10: R07.9 Chest pain of unclear etiology, patient with significant risk factor(s) of family history of early coronary heart disease, Hypertension, Hyperlipidemia, and smoking No current symptoms Need likely for nuclear stress testing as well. - ECHO - PERFLUTREN LIPID MICROSPHERES 1.1 MG/ML INJECTION IN NS 10 ML - SODIUM CHLORIDE 0.9 % (FLUSH) INJECTION SYRINGE 9. Headache, unspecified headache type - ICD9: 784.0, ICD10: R51.9 rx refilled, rare use - CYCLOBENZAPRINE 10 MG TABLET 10. Acute exacerbation of chronic low back pain - ICD9: 724.2, 338.19, 338.29, ICD10: M54.50, G89.29 rx as below Use of ice and heating pad alternating Need for PHYSICAL THERAPY if not improving as well as xrays - PREDNISONE 10 MG TABLET - CYCLOBENZAPRINE 10 MG TABLET 11. Benign neoplasm of colon, unspecified part of colon - ICD9: 211.3, ICD10: D12.6 Need for colonoscopy Ryder Preston DO UPDATED HISTORY AND PHYSICAL EXAMINATION SERVICE DATE: 11/08/2023 SERVICE TIME: 10:14 AM PHYSICAL EXAM MUST BE COMPLETED ON ADMISSION The History and Physical (completed in the past 30 days) has been reviewed and the patient has been examined. The contents accurately reflect the patient's condition with the following additions or revisions since the H&P was completed. Examination indicates no changes. This H&P can be found in the attached. SIGNATURE: Kishor Chou III, MD PATIENT NAME: Warern Manriquez DATE: November 08, 2023 TIME: 10:14 AM documented in this encounter [facility] 11-03-2023 Telephone encounter Note Pt. informed via My Chart. [facility] Work Phone: 11-03-2023 Miscellaneous Notes Pt. informed via My Chart. Please inform patient that his abdominal US is normal- no signs of aneurysm Ryder Preston DO Pt. informed via My Chart. Please inform patient that his carotid artery US only shows very minimal carotid plaque. Continue to eat low fat diet and keep BLOOD PRESSURE controlled ECHOCARDIOGRAM also overall looks great, no concerns- has healthy heart pumping function, normal valve function and muscle Ryder Preston DO documented in this encounter [facility] 11-02-2023 Telephone encounter Note Please inform patient that his abdominal US is normal- no signs of aneurysm Ryder Preston DO T [facility] 11-02-2023 Telephone encounter Note Pt. informed via My Chart. T [facility] 11-02-2023 Telephone encounter Note Please inform patient that his carotid artery US only shows very minimal carotid plaque. Continue to eat low fat diet and keep BLOOD PRESSURE controlled ECHOCARDIOGRAM also overall looks great, no concerns- has healthy heart pumping function, normal valve function and muscle Ryder Preston DO [facility] 10-10-2023 History of Present illness Narrative CC: Warren Manriquez is a 68 year old male who presents to the office for physical HPI: Low back pain, recently has had a flare up of symptoms after working around home/outside, no falls, no new bowel or bladder changes. Hx of arthritis, hasn't had recent xrays. No fevers or chills or skin changes. Use of steroids and muscle relaxant in the past for flare up with benefit. 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 Has had intermittent vertigo symptoms. No head injuries. Has intermittent feeling of chest tightness, denies any current symptoms. No known hx of CAD but hasn't had any recent testing. Willing to have repeat colonoscopy PAST MEDICAL HISTORY Diagnosis Date GERD (gastroesophageal reflux disease) hemorrhoid Pre-diabetes Vertigo PAST SURGICAL HISTORY Procedure Laterality Date COLONOSCOPY 2015 F SIGMOIDOSCOPY FLEXIBLE negative--hemorrhoids PAST SURGICAL HISTORY OF Right foot surgery--calcium deposit PAST SURGICAL HISTORY OF total dental extraction STRESS TEST 2018 normal THYROID BIOPSY US 2018 normal, no repeat indicated Social History: Social History Tobacco Use Smoking status: Former Packs/day: 0.00 Years: 30.00 Additional pack years: 0.00 Total pack years: 0.00 Types: Cigarettes Smokeless tobacco: Never Substance Use Topics Alcohol use: No Drug use: No FAMILY HISTORY Problem Relation Age of Onset Ischemic Heart Disease Maternal Grandfather Diabetes Maternal Grandmother Blood Disease Mother unknown Coronary Artery Disease Father Diabetes Father Current Outpatient prescriptions: cholecalciferol (VITAMIN D-3) 5,000 unit tab Take 5,000 Units by mouth once daily. meclizine (ANTIVERT) 25 mg tab Take 1 tablet by mouth three times a day as needed (dizziness). diazePAM (VALIUM) 10 mg tablet Take 1 tablet by mouth every 8 hours as needed (muscle spasm) for up to 30 days. predniSONE (DELTASONE) 10 mg tablet Take 4 tabs daily for 3 days, then 2 tabs daily for 3 days, then 1 tab daily for 3 days with food. cyclobenzaprine (FLEXERIL) 10 mg tablet Take 1 tablet by mouth three times a day as needed for muscle spasm for up to 15 days. benzonatate (TESSALON PERLES) 100 mg capsule Take 1 capsule by mouth three times a day as needed for cough. sildenafil (VIAGRA) 100 mg tablet Take 1 PO daily as needed for erectile dysfunction. Do not exceed more than 1 tablet per 24 hours. Allergies: ALLERGIES Allergen Reactions Flonase [Fluticason* Other: See Comments Made pt no feel well and vomit ROS: See HPI PE: 10/05/23 1452 BP: 138/64 BP Site: Left Arm BP Position: Sitting BP Cuff Size: Large Adult Pulse: 60 Resp: 14 Weight: 95.6 kg (210 lb 12.8 oz) Height: 178 cm (5' 10.08) Gen: A&O, NAD, non-toxic appearing, Pleasant, cooperative HEENT: NT/AC, PERRLA, wearing glasses, EOMs intact b/l, nares clear and patent b/l, pharynx without erythema, exudate or lesions. Uvula midline. MMM, EACs without erythema or debris. TMs pearly corbin with intact landmarks b/l. Neck: supple, No cervical LAD, no thyromegaly, no carotid bruits CV: RRR, normal S1 and S2, no murmurs, no gallops, no rubs, Pulses 2+ and symmetric in UE and LE b/l Lungs: normal respiratory effort, CTA b/l, no wheezing or rhonchi or rales Abd: soft, obese, NT, ND, +BS, no hepatosplenomegaly MS: reduced ROM lumbar spine with paraspinal muscle tension and muscles spasm and antalgic gait Neuro: CN II-XII intact b/l, strength 5/5 b/l UE and LE, DTRs 2/4 UE and LE, sensation intact. Skin: warm, dry, intact, No rashes or lesions on exposed skin. ASSESSMENT/PLAN: 1. Well adult exam - ICD9: V70.0, ICD10: Z00.00 (primary diagnosis) - Counseled on healthy diet and regular exercise - Discussed need for and benefit of weight loss. BMI 30.18 kg/(m^2) 2. Encounter for immunization - ICD9: V03.89, ICD10: Z23 - PNEUMOCOCCAL VACCINE, 20 VALENT (PREVNAR 20) 3. Vertigo - ICD9: 780.4, ICD10: R42 rx prn, intermittent symptoms - MECLIZINE 25 MG TABLET 4. Muscle spasm - ICD9: 728.85, ICD10: M62.838 Need for rx prednisone. Has recent lumbar spine flare up of pain - DIAZEPAM 10 MG TABLET 5. Screening for colon cancer - ICD9: V76.51, ICD10: Z12.11 - COLONOSCOPY SCREENING 6. Screening for AAA (abdominal aortic aneurysm) - ICD9: V81.2, ICD10: Z13.6 - US SCREENING FOR AAA 7. Carotid atherosclerosis, bilateral - ICD9: 433.10, 433.30, ICD10: I65.23 - US CAROTID ARTERIES [facility] 8. Chest pain, unspecified type - ICD9: 786.50, ICD10: R07.9 Chest pain of unclear etiology, patient with significant risk factor(s) of family history of early coronary heart disease, Hypertension, Hyperlipidemia, and smoking No current symptoms Need likely for nuclear stress testing as well. - ECHO - PERFLUTREN LIPID MICROSPHERES 1.1 MG/ML INJECTION IN NS 10 ML - SODIUM CHLORIDE 0.9 % (FLUSH) INJECTION SYRINGE 9. Headache, unspecified headache type - ICD9: 784.0, ICD10: R51.9 rx refilled, rare use - CYCLOBENZAPRINE 10 MG TABLET 10. Acute exacerbation of chronic low back pain - ICD9: 724.2, 338.19, 338.29, ICD10: M54.50, G89.29 rx as below Use of ice and heating pad alternating Need for PHYSICAL THERAPY if not improving as well as xrays - PREDNISONE 10 MG TABLET - CYCLOBENZAPRINE 10 MG TABLET 11. Benign neoplasm of colon, unspecified part of colon - ICD9: 211.3, ICD10: D12.6 Need for colonoscopy Ryder Preston DO To ER if develops chest pain, shortness of breath, or severe worsening of symptoms. Discussed risks, benefits, alternatives, and potential side effects of medications. Patient expressed understanding and agreed with the plan. Ryder Preston DO [address] [place] [address] documented in this encounter [facility] 10-05-2023 Nurse Note Pt received pneumovax 20 at appointment today as ordered. Tolerated well. [facility] 10-05-2023 Nurse Note Pt received pneumovax 20 at appointment today as ordered. Tolerated well. documented in this encounter [facility] 10-05-2023 Instructions Ryder Preston DO - 10/05/2023 3:27 PM EDT Images from the original note were not included. Bowel Preparation Instructions for: Miralax-Gatorade Preparations IF YOU DO NOT FOLLOW THESE DIRECTIONS, YOUR COLONOSCOPY WILL BE CANCELLED. [place] Instructions: Your bowel must be empty so that your doctor can clearly view your colon. Follow all of the instructions in this handout EXACTLY as they are written. Do NOT eat any solid food the ENTIRE day before your colonoscopy. Buy your bowel preparation at least 5 days before your colonoscopy. Four (4) Dulcolax laxative tablets containing 5mg of bisacodyl each (NOT Dulcolax stool softener) One (1) 8.3oz. bottle Miralax (238 grams) or generic equivalent 2 x 32oz. Bottles of Gatorade (NOT RED) Diabetic Patients: Use G2 (Gatorade 2) TRANSPORTATION on the Day of Your Exam A responsible adult MUST be present with you at Check In prior to your colonoscopy and REMAIN in the endoscopy area until you are discharged. You are NOT ALLOWED to drive, take a taxi or bus, or leave the Endoscopy Center ALONE. If you do not have a responsible coach driver (family member or friend) with you to take you home, your exam cannot be done with sedation and will be cancelled. Please bring a list of all of your current medications, including any Xupy-ywn-Bvikhzy medications with you. Medications If you take insulin, diabetic medications or blood thinners such as Coumadin (warfarin), Plavix (clopidogrel), Ticlid (ticlopidine hydrochloride), Agrylin (anagrelide), Xarelto (Rivaroxaban), Pradaxa (Dabigatran), Eliquis (Apixaban), and Effient (Prasugrel). You MUST call the doctors who orders those medicines for instructions on altering the dosage before your colonoscopy. All other medications should be taken the day of the exam with a sip of water including ASPIRIN. Five (5) Days Before Your Colonoscopy Do NOT take medicines that stop diarrhea - such as Imodium, Kaopectate, or Pepto Bismol. Do NOT take fiber supplements - such as Metamucil, Citrucel, or Perdiem. Do NOT take products that contain iron - such as multi-vitamins (the label lists what is in the products). Three (3) Days Before Your Colonoscopy Do NOT eat high-fiber foods - such as popcorn, beans, seeds (flax, sunflower, quinoa), multigrain bread, nuts, salad/vegetables, or fresh and dried fruit. 1 Bowel Preparation Instructions for: Miralax-Gatorade Preparations One (1) Day Before Your Colonoscopy Only drink clear liquids the ENTIRE DAY before your colonoscopy. Do NOT eat any solid foods. Drink at least 8 ounces of clear liquids every hour after waking up. The clear liquids you can drink include: Clear Liquid (NO RED LIQUIDS) DO NOT DRINK Gatorade, Pedialyte or Powerade Clear broth or bouillon Coffee or tea (no milk or non-dairy creamer) Carbonated and non-carbonated soft drinks Pilo-Aid or other fruit flavored drinks Strained fruit juices (no pulp) Jell-O, popsicles, hard candy Water Alcohol Milk or non-dairy creamers Noodles or vegetables in soup Juice with pulp Liquid you cannot see through Do not use tobacco/vaping products Mix 1/2 of Miralax bottle (119 grams) in each 32 ounces of Gatorade bottle until dissolved. Keep cool in the refrigerator. DO NOT ADD ICE. The bowel preparation solution will be consumed in two parts. Part 1 5:00 PM - Evening before your colonoscopy Take 4 Dulcolax tablets. 6 PM - Evening before your colonoscopy Drink 32 oz. of the mixed solution. Drink an 8 oz. glass of bowel preparation every 15 minutes for a total of 4 glasses. Fifteen (15) minutes later, drink an 8 oz. glass of of clear liquids every 15 minutes for a total of 2 glasses. You may continue to drink clear liquids till midnight. Part 2 On the day of your colonoscopy you may drink clear liquids up to (three) 3 hours prior to procedure. 4 1/2 hours before your colonoscopy Take another 32 oz. bottle of mixed solution. Drink an 8 oz. glass of bowel prep every 15 minutes for a total of 4 glasses. Fifteen (15) minutes later, drink an 8 oz. glass of clear liquids every 15 minutes for a total of 2 glasses. You may continue to drink clear liquids up to (three) 3 hours before your exam. 2 04/2019 documented in this encounter [facility] 04-28-2023 History of Present illness Narrative Patient presents with: Sinus Problem: Sinus pain and pressure x 6 days HPI: Feeling left head pain for 6 days. Pain is in the left face and ear and radiates to the left back of the head like a stress headache. Positive symptoms: Sinus pressure, Nasal Congestion, Rhinorrhea, Headache, Negative symptoms: Cough, Sore throat, Fever, vision change, numbness, weakness, OTC: sinus allergy medicine Home COVID test negative today. MEDICATIONS: Current Outpatient Medications Medication Sig sildenafil (VIAGRA) 100 mg tablet Take 1 PO daily as needed for erectile dysfunction. Do not exceed more than 1 tablet per 24 hours. No current facility-administered medications for this visit. ALLERGIES: ALLERGIES No Known Allergies VITALS: BP 142/84 Pulse 76 Temp 36.6 C (97.9 F) (Tympanic) Resp 16 Wt 95.3 kg (210 lb) SpO2 99% BMI 30.13 kg/m PHYSICAL EXAM: GEN: pleasant, mildly ill appearing HEENT: PERRL, EOMI, conjunctiva clear Ears: TMs without erythema, bulge, or effusion Sinuses: non-tender frontal sinus, non-tender maxillary sinuses Throat: moist mucous membranes, no erythema, no exudate Neck: supple, no thyromegaly, no lymphadenopathy HEART: regular rate and rhythm, no murmurs LUNGS: clear to auscultation, no wheezes or crackles, no increased WOB NEURO: Alert and oriented to person, place, and time. CN II-XII grossly intact. Normal gait. No tremor. ASSESSMENT/PLAN: 1. Headache, unspecified headache type - ICD9: 784.0, ICD10: R51.9 Unilateral headache. Differential includes tension headache, viral illness, sinusitis. Start tension headache treatment. - IBUPROFEN 600 MG TABLET - CYCLOBENZAPRINE 10 MG TABLET Consider sinusitis treatment if sinus area pain/pressure and drainage persist. Warren Craven MD documented in this encounter [facility] 12-07-2021 History of Present illness Narrative Orders signed. Thank you, Chayo Mario APRN.CALL CENTER ANALYST Please file orders as it will automatically drop into ASC scheduling pool. Anna Cao MA Called and left a voicemail for the Patient to call back and ask for a nurse to receive the providers message. Leelee Garcia RN Please clarify if patient has been notified/called and is willing to complete the colonoscopy if orders are placed? Ryder Preston DO Patient due for Colonoscopy screening. Cleared for open access pending completion of open access questionaire. Please contact patient and schedule procedure Alex Beck documented in this encounter [facility] 11-15-2021 Instructions Alex Beck - 11/15/2021 2:03 PM EDT Images from the original note were not included. Bowel Preparation Instructions for: Golytely, Nulytely, Trilyte or Colyte (polyethylene glycol 3350 and electrolytes) IF YOU DO NOT FOLLOW THESE DIRECTIONS, YOUR COLONOSCOPY WILL BE CANCELLED. [place] Instructions: Your bowel must be empty so that your doctor can clearly view your colon. Follow all of the instructions in this handout EXACTLY as they are written. Do NOT eat any solid food the ENTIRE day before your colonoscopy. Drink only clear liquids. Buy your bowel preparation at least 5 days before your colonoscopy. TRANSPORTATION on the Day of Your Exam A responsible person MUST be present with you at Check In prior to your colonoscopy and REMAIN in the endoscopy area until you are discharged. You are NOT ALLOWED to drive, take a taxi or bus, or leave the Endoscopy Center ALONE. If you do not have a responsible coach driver (family member or friend) with you to take you home, your exam cannot be done with sedation and will be cancelled. Please bring a list of all of your current medications, including any Over-the Counter medications with you. Medications If you take insulin, diabetic medications or blood thinners such as Coumadin (warfarin), Plavix (clopidogrel), Ticlid (ticlopidine hydrochloride), Agrylin (anagrelide), Xarelto (Rivaroxaban), Pradaxa (Dabigatran), Eliquis (Apixaban), and Effient (Prasugrel). You MUST call the doctors who orders those medicines for instructions on altering the dosage before your colonoscopy. All other medications should be taken the day of the exam with a sip of water including ASPIRIN. Five (5) Days Before Your Colonoscopy Do NOT take medicines that stop diarrhea - such as Imodium, Kaopectate, or Pepto Bismol. Do NOT take fiber supplements - such as Metamucil, Citrucel, or Perdiem. Do NOT take products that contain iron - such as multi-vitamins (the label lists what is in the products). Do NOT take Vitamin E. Buy the prescription bowel preparation solution at your [facility] 04/2019 Bowel Preparation Instructions for: Golytely, Nulytely, Trilyte or Colyte (polyethylene glycol 3350 and electrolytes) Three (3) Days Before Your Colonoscopy Do NOT eat high-fiber foods - such as popcorn, beans, seeds (flax, sunflower, quinoa), multigrain bread, nuts, salad/vegetables, or fresh and dried fruit. One (1) Day Before Your Colonoscopy Only drink clear liquids the ENTIRE DAY before your colonoscopy. Do NOT eat any solid foods. Drink at least 8 ounces of clear liquids every hour after waking up. The clear liquids you can drink include: Clear Liquid (NO RED LIQUIDS) DO NOT DRINK Gatorade, Pedialyte or Powerade Clear broth or bouillon Coffee or tea (no milk or non-dairy creamer) Carbonated and non-carbonated soft drinks Pilo-Aid or other fruit flavored drinks Strained fruit juices (no pulp) Jell-O, popsicles, hard candy Water Alcohol Milk or non-dairy creamers Noodles or vegetables in soup Juice with pulp Liquid you cannot see through The bowel preparation solution will be consumed in two parts. Mix the solution the evening before your colonoscopy and refrigerate before drinking. You may add the flavor pack that came with the bowel preparation. Do NOT add ice, sugar or any other flavorings to the solution. Part 1 At 6:00 PM - Evening before your colonoscopy Drink an 8-oz glass of bowel preparation every 10 minutes for a total of 8 glasses. You may continue to drink clear liquids until midnight. Part 2 On the day of your colonoscopy you may drink clear liquids up to (three) 3 hours before your procedure. 4 1/2 hours before your colonoscopy Drink an 8-oz glass of bowel preparation every 10 minutes for a total of 8 glasses. Fifteen (15) minutes later, drink an 8-oz glass of clear liquids every 15 minutes for a total of 2 glasses. You may continue to drink clear liquids up to (three) 3 hours before your exam. 3 04/2019 documented in this encounter [facility] 10-11-2021 History of Present illness Narrative Subjective HPI Nontoxic-appearing male presents urgent care chief complaint sinus infection. Duration of symptoms 2 weeks. Associated symptoms sinus congestion pressure. Patient states he does have a nonproductive cough with sinus pressure. States this is from postnasal drip. States every once a while he does cough up some yellow mucus. Denies any known sick contacts. Denies any pain. States sinus pressure is lingering. Denies any OTC medications today. Did take Mucinex yesterday and this did help some. Denies any fever productive cough chest pain shortness of breath pleuritic pain hemoptysis nausea vomiting abdominal pain or change in bowel or bladder habits. Past medical history prescription medication use allergies reviewed. .Patient presents with: Chest Congestion: nasal congestion x couple weeks PAST MEDICAL HISTORY Diagnosis Date GERD (gastroesophageal reflux disease) hemorrhoid Pre-diabetes Vertigo PAST SURGICAL HISTORY Procedure Laterality Date COLONOSCOPY 2016 F SIGMOIDOSCOPY FLEXIBLE negative--hemorrhoids PAST SURGICAL HISTORY OF Right foot surgery--calcium deposit PAST SURGICAL HISTORY OF total dental extraction STRESS TEST 2018 normal THYROID BIOPSY US 2018 normal, no repeat indicated ALLERGIES Patient has no known allergies. MEDICATIONS sildenafil (VIAGRA) 100 mg tablet Take 1 PO daily as needed for erectile dysfunction. Do not exceed more than 1 tablet per 24 hours. benzonatate (TESSALON PERLES) 100 mg capsule Take 1 capsule by mouth three times daily as needed for Cough. meloxicam (MOBIC) 15 mg tablet Take 1 tablet by mouth once daily. ketoconazole (NIZORAL) 2 % cream Apply 1 application to affected area once daily as needed (rash on eyebrows or groin). triamcinolone acetonide (KENALOG) 0.1 % cream Apply 1 application to affected area once daily as needed. Apply to affected area. Location: rash on eyebrowns FAMILY HISTORY Problem Relation Age of Onset Ischemic Heart Disease Maternal Grandfather Diabetes Maternal Grandmother Blood Disease Mother unknown Coronary Artery Disease Father Diabetes Father Social History Tobacco Use Smoking status: Former Smoker Packs/day: 0.00 Years: 30.00 Pack years: 0.00 Types: Cigarettes Smokeless tobacco: Never Used Substance Use Topics Alcohol use: No Drug use: No BP 124/74 Pulse 70 Temp 36.2 C (97.2 F) Resp 16 Wt 90.3 kg (199 lb) SpO2 98% BMI 28.55 kg/m Review of Systems Constitutional: Negative for chills, fever and malaise/fatigue. HENT: Positive for congestion and sinus pain. Negative for ear discharge, ear pain and sore throat. Eyes: Negative for blurred vision, pain, discharge and redness. Respiratory: Positive for cough. Negative for hemoptysis, sputum production, shortness of breath, wheezing and stridor. Cardiovascular: Negative for chest pain. Gastrointestinal: Negative for abdominal pain, diarrhea, nausea and vomiting. Musculoskeletal: Negative for myalgias. Skin: Negative for itching and rash. Neurological: Negative for dizziness and headaches. Objective Physical Exam Vitals and nursing note reviewed. Constitutional: General: He is not in acute distress. Appearance: He is not diaphoretic. HENT: Head: Normocephalic and atraumatic. Jaw: No trismus. Right Ear: Hearing, tympanic membrane, ear canal and external ear normal. No decreased hearing noted. No drainage, swelling or tenderness. Tympanic membrane is not perforated, erythematous or bulging. Left Ear: Hearing, tympanic membrane, ear canal and external ear normal. No decreased hearing noted. No drainage, swelling or tenderness. Tympanic membrane is not perforated, erythematous or bulging. Nose: Right Sinus: Maxillary sinus tenderness present. Left Sinus: Maxillary sinus tenderness present. Mouth/Throat: Lips: [place]. Mouth: Mucous membranes are moist. Pharynx: Oropharynx is clear. Uvula midline. No pharyngeal swelling, oropharyngeal exudate, posterior oropharyngeal erythema or uvula swelling. Eyes: General: Right eye: No discharge. Left eye: No discharge. Conjunctiva/sclera: Conjunctivae normal. Pupils: Pupils are equal, round, and reactive to light. Cardiovascular: Rate and Rhythm: Normal rate and regular rhythm. Heart sounds: Normal heart sounds. Pulmonary: Effort: Pulmonary effort is normal. No tachypnea, accessory muscle usage or respiratory distress. Breath sounds: Normal breath sounds. No stridor. No wheezing, rhonchi or rales. Chest: Chest wall: No tenderness. Abdominal: Palpations: Abdomen is soft. Tenderness: There is no abdominal tenderness. Musculoskeletal: General: No tenderness. Normal range of motion. Cervical back: Normal range of motion and neck supple. No rigidity or tenderness. Lymphadenopathy: Head: Right side of head: No submental, submandibular, tonsillar, preauricular, posterior auricular or occipital adenopathy. Left side of head: No submental, submandibular, tonsillar, preauricular, posterior auricular or occipital adenopathy. Cervical: No cervical adenopathy. Right cervical: No superficial or posterior cervical adenopathy. Left cervical: No superficial or posterior cervical adenopathy. Skin: General: Skin is warm and dry. Findings: No rash. Neurological: Mental Status: He is alert and oriented to person, place, and time. ASSESSMENT/PLAN: 1. Acute sinusitis, recurrence not specified, unspecified location - ICD9: 461.9, ICD10: J01.90 Patient diagnosed with acute sinusitis. Patiently placed on doxycycline. Chest x-ray offered declined x-ray at this time. Patient was educated on supportive therapies. Patient will follow up with primary care provider as needed. Patient was instructed to immediately proceed to emergency room for any new, worsening, or symptoms lasting longer than anticipated. The patient's clinical presentation is otherwise unremarkable at this time. Based on exam and clinical finding, the patient is stable for discharge. Plan of care was discussed with patient. Patient verbalizes understanding and agrees to plan of care. This note was generated using theRightAPI software. It may contain errors in wording, punctuation, or spelling. Jackson Pearl APRN.DEON documented in this encounter [facility] Evaluation note Diagnosis Acute sinusitis, recurrence not specified, unspecified location- Primary [facility] Diagnosis Colon cancer screening- Primary Special screening for malignant neoplasms, colon [facility] Diagnosis Headache, unspecified headache type- Primary [facility] Diagnosis Well adult exam- Primary Routine general medical examination at a health care facility Dyslipidemia Other and unspecified hyperlipidemia documented in this encounter [facility] note* Diagnosis Well adult exam- Primary Routine general medical examination at a health care facility Encounter for immunization Need for other specified prophylactic vaccination against single bacterial disease Vertigo Dizziness and giddiness Muscle spasm Spasm of muscle Screening for colon cancer Special screening for malignant neoplasms, colon Screening for AAA (abdominal aortic aneurysm) Screening for other and unspecified cardiovascular conditions Carotid atherosclerosis, bilateral Chest pain, unspecified type Headache, unspecified headache type Acute exacerbation of chronic low back pain Lumbago Benign neoplasm of colon, unspecified part of colon documented in this encounter [facility] note* Diagnosis Screening for AAA (abdominal aortic aneurysm) Screening for other and unspecified cardiovascular conditions documented in this encounter [facility] note* Diagnosis Encounter for screening for malignant neoplasm of colon- Primary Special screening for malignant neoplasms, colon Screening for colon cancer Special screening for malignant neoplasms, colon documented in this encounter [facility] note* Diagnosis Adenomatous polyp of ascending colon- Primary documented in this encounter [facility] note* Diagnosis Bronchitis Bronchitis, not specified as acute or chronic documented in this encounter [facility] note* Diagnosis Viral bronchitis- Primary Acute bronchitis Exposure to pneumonia Contact with or exposure to other viral diseases Wheezing documented in this encounter [facility] for referral (narrative)* Outpatient Procedure (Routine) - Pending Review Specialty Diagnoses / Procedures Referred By Almas medellin Referred To Contact [facility] Diagnoses Colon cancer screening Procedures COLONOSCOPY SCREENING COLONOSCOPY FLX DX W/COLLJ SPEC WHEN PFRMD Chayo Mario APRN.CALL CENTER ANALYST [address] [place] [address] [facility] [address] [place] [id number] Referral ID Status Reason Start Date Expiration Date Visits Requested Visits Authorized [id number] Pending Review Auto-Generat ed Referral 12/07/2021 11/15/2022 [facility] Outpatient Procedure (Routine) - Authorized Specialty Diagnoses / Procedures Referred By Almas medellin Referred To Contact [facility] Diagnoses Carotid atherosclerosis, bilateral Procedures US CAROTID ARTERIES [facility] DUPLEX SCAN EXTRACRANIAL ART COMPL BI STUDY Ryder Preston, DO [address] [place] [address] [address] Referral ID Status Reason Start Date Expiration Date Visits Requested Visits Authorized [id number] Authorized Auto-Generat ed Referral 10/05/2023 10/04/2024 1 1 * Outpatient Procedure (Routine) - Authorized Specialty Diagnoses / Procedures Referred By Contac t Referred To Contact [facility] Diagnoses Chest pain, unspecified type Procedures ECHO ECHO TTHRC R-T 2D W/WOM-MODE COMPL SPEC&COLR D Ryder Preston, DO [address] [place] [address] [address] Referral ID Status Reason Start Date Expiration Date Visits Requested Visits Authorized [id number] Authorized Auto-Generat ed Referral 10/05/2023 10/04/2024 1 1 * Diagnostic Procedure Only (Routine) - Authorized Specialty Diagnoses / Procedures Referred By Contac t Referred To Contact [facility] Diagnoses Screening for AAA (abdominal aortic aneurysm) Procedures US SCREENING FOR AAA (2017) US ABDOMINAL AORTA REAL TIME SCREEN STUDY AAA Ryder Preston, DO [address] [place] [address] [place] [id number] Referral ID Status Reason Start Date Expiration Date Visits Requested Visits Authorized [id number] Authorized Auto-Generat ed Referral 10/05/2023 11/03/2024 1 1 * Outpatient Procedure (Routine) - Authorized Specialty Diagnoses / Procedures Referred By Contac t Referred To Contact [facility] Diagnoses Screening for colon cancer Procedures COLONOSCOPY SCREENING COLONOSCOPY FLX DX W/COLLJ SPEC WHEN PFRMD Ryder Preston, DO [address] [place] [address] [address] Referral ID Status Reason Start Date Expiration Date Visits Requested Visits Authorized [id number] Authorized Auto-Generat ed Referral 10/05/2023 10/04/2024 1 1 [facility] for referral (narrative)* Outpatient Procedure (Routine) - Closed Specialty Diagnoses / Procedures Referred By Contac t Referred To Contact [facility] Diagnoses Screening for colon cancer Procedures COLONOSCOPY SCREENING COLONOSCOPY FLX DX W/COLLJ SPEC WHEN PFRyder Torres DO [address] [place] [address] [address] Referral ID Status Reason Start Date Expiration Date V isits Requested Visits Authorized [id number] Closed Auto-Generate d Referral 10/05/2023 10/04/2024 1 1 [facility] for visit Narrative* Diagnostic Procedure Only (Routine) - Closed Specialty Diagnoses / Procedures Referred By Contac t Referred To Contact [facility] Diagnoses Screening for AAA (abdominal aortic aneurysm) Procedures US SCREENING FOR AAA (2017) US ABDOMINAL AORTA REAL TIME SCREEN STUDY AAA Ryder Preston, DO [address] [place] [address] [id number] Referral ID Status Reason Start Date Expiration Date V isits Requested Visits Authorized [id number] Closed Auto-Generate d Referral 10/05/2023 11/03/2024 1 1 [facility] for visit Narrative* Outpatient Procedure (Routine) - Closed Specialty Diagnoses / Procedures Referred By Contac t Referred To Contact [facility] Diagnoses Screening for colon cancer Procedures COLONOSCOPY SCREENING COLONOSCOPY FLX DX W/COLLJ SPEC WHEN PFRMRyder William, DO [address] [place] [address] [facility] [address] [place] [address] Referral ID Status Reason Start Date Expiration Date V isits Requested Visits Authorized [id number] Closed Auto-Generate d Referral 10/05/2023 10/04/2024 1 1 [facility] Summary Purpose Family History No Family History Records FoundNo Family History Records FoundNo Family History Records FoundNo Family History Records Found Advance Directives No Advanced Directives Records FoundDocuments on File Type Date 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) 12/27/2015 8:50 AM Documents on File Type Date 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) 12/27/2015 8:50 AM Additional Source Comments (unrecognized sect ion and content) No Status Records FoundNo Status Records FoundNo Status Records FoundNo Status Records Found INFORMATION SOURCE (unrecogn ized section and content) DATE CREATED AUTHOR 09/15/2018 [facility] DATE CREATED AUTHOR AUTHOR'S ORGANIZ ATION 07/22/2020 [facility] DATE CREATED AUTHOR AUTHOR'S ORGANIZ ATION 07/21/2021 [facility] DATE CREATED AUTHOR AUTHOR'S ORGANIZ ATION 03/04/2025 [facility] Source Comments (unrecognize d section and content) In the event this informatio n is protected by the Federal Confidentiality of Alcohol and Drug Abuse Patient Records regulations: The Federal rules restrict any use of the information to criminally investigate or prosecute any alcohol or drug abuse patient.[facility] the event this information is protected by the Federal Confidentiality of Alcohol and Drug Abuse Patient Records regulations: The Federal rules restrict any use of the information to criminally investigate or prosecute any alcohol or drug abuse patient.[facility] the event this information is protected by the Federal Confidentiality of Alcohol and Drug Abuse Patient Records regulations: The Federal rules restrict any use of the information to criminally investigate or prosecute any alcohol or drug abuse patient.[facility] the event this information is protected by the Federal Confidentiality of Alcohol and Drug Abuse Patient Records regulations: The Federal rules restrict any use of the information to criminally investigate or prosecute any alcohol or drug abuse patient.[facility] Hospital[facility] the event this information is protected by the Federal Confidentiality of Alcohol and Drug Abuse Patient Records regulations: The Federal rules restrict any use of the information to criminally investigate or prosecute any alcohol or drug abuse patient.[facility] Hospital[facility] the event this information is protected by the Federal Confidentiality of Alcohol and Drug Abuse Patient Records regulations: The Federal rules restrict any use of the information to criminally investigate or prosecute any alcohol or drug abuse patient.[facility] Hospital[facility] the event this information is protected by the Federal Confidentiality of Alcohol and Drug Abuse Patient Records regulations: The Federal rules restrict any use of the information to criminally investigate or prosecute any alcohol or drug abuse patient.[facility] Hospital[facility] the event this information is protected by the Federal Confidentiality of Alcohol and Drug Abuse Patient Records regulations: The Federal rules restrict any use of the information to criminally investigate or prosecute any alcohol or drug abuse patient.[facility] Hospital[facility] the event this information is protected by the Federal Confidentiality of Alcohol and Drug Abuse Patient Records regulations: The Federal rules restrict any use of the information to criminally investigate or prosecute any alcohol or drug abuse patient.[facility] Hospital[facility] the event this information is protected by the Federal Confidentiality of Alcohol and Drug Abuse Patient Records regulations: The Federal rules restrict any use of the information to criminally investigate or prosecute any alcohol or drug abuse patient.[facility] HospitalIn the event this information is protected by the Federal Confidentiality of Alcohol and Drug Abuse Patient Records regulations: The Federal rules restrict any use of the information to criminally investigate or prosecute any alcohol or drug abuse patient.[facility] Hospital[facility] the event this information is protected by the Federal Confidentiality of Alcohol and Drug Abuse Patient Records regulations: The Federal rules restrict any use of the information to criminally investigate or prosecute any alcohol or drug abuse patient.[facility] Reason for Visit (unrecogniz ed section and content) Reason Comments Chest Congestion nasal congestion x c ouple weeks Reason Onset Date Comments Outpatient Colonoscopy 11/15/2021 Reason Comments Sinus Problem Sinus pain and press ure x 6 days Reason Comments Physical Reason Comments Results Reason Comments Follow Up 11/08/23 follow up c olonoscopy with farrah Reason Comments Nasal Congestion chest congestion, co ugh x 3 days Care Teams (unrecognized sec tion and content) Middle School Tutor Relationship Specialty Start Date End Date Ryder Preston, DO [address] [place] [address] PCP - General Family Practice 01/24/19 Middle School T[employer] Relationship Specialty Start Date End Date Ryder Preston DO [address] [place] [address] PCP - General Family Practice 01/24/19 Middle School Tutor Relationship Specialty Start Date End Date Ryder Preston, [address] [place] [address] PCP - General Family Medicine 01/24/19 Middle School Tutor Relationship Specialty Start Date End Date Ryder Preston, [address] [place] [address] PCP - General Family Medicine 01/24/19 Middle School Tutor Relationship Specialty Start Date End Date Ryder Preston DO [address] [place] [address] PCP - General Family Medicine 01/24/19 Middle School Tutor Relationship Specialty Start Date End Date Ryder Preston DO [address] [place] [address] PCP - General Family Medicine 01/24/19 Middle School Tutor Relationship Specialty Start Date End Date Ryder Preston, [address] [place] [address] PCP - General Family Medicine 01/24/19 Middle School Tutor Relationship Specialty Start Date End Date Ryder Preston DO [address] [place] [address] PCP - General Family Medicine 01/24/19 Middle School Tutor Relationship Specialty Start Date End Date Ryder Preston DO [address] [place] [address] PCP - General Family Medicine 01/24/19 Middle School Tutor Relationship Specialty Start Date End Date Ryder Preston DO [address] [place], [place] [address] PCP - [facility] 01/24/19 Middle School Tutor Relationship Specialty Start Date End Date Ryder Preston DO [address] [place], [place] [id number] PCP - [facility] 01/24/19 Chayo Goodrich, EMERY GRINDER.CALL CENTER ANALYST [address] [place], [place] [id number] [facility] 05/04/24 Estefani Calixto APRN.CALL CENTER ANALYST [address] [place], [place] [address] [facility] 05/04/24 FOR RECORDS PERTAINING TO PATIENTS WHO ARE OR HAVE BEEN ENROLLED IN A CHEMICAL DEPENDENCY/SUBSTANCEABUSE PROGRAM, SOME INFORMATION MAY BE OMITTED. This clinical summary was aggregated from multiple sources. Caution should be exercised in using it in the provision of clinical care. This summary normalizes information from multiple sources, and as a consequence, information in this document may materially change the coding, format and clinical context of patient data. In addition, data may be omitted in some cases. CLINICAL DECISIONS SHOULD BE BASED ON THE PRIMARY CLINICAL RECORDS. [facility] [employer] provides no warranty or guarantee of the accuracy or completeness of information in this document.
[2025-04-13 19:05] VITALS: BP 158/87; PULSE 68; RESP 14; TEMP 36.6; O2SAT 98; BMI 29.7
[2025-04-13 23:00] VITALS: O2SAT 97
[2025-04-13 23:03] VITALS: BP 146/76; PULSE 75; RESP 16; TEMP 36.6; O2SAT 97
[2025-04-13] MEDS: Insulin Glargine-YFGN 100 UNIT/ML Pen 20 UNIT SC (23:10)
[2025-04-14 03:25] VITALS: BP 131/72; PULSE 65; RESP 14; TEMP 36.4; O2SAT 96
[2025-04-14 04:33] VITALS: BMI 29.7
--- NOTE | 2025-04-14 04:43 | ECHOCS_ITS ---
Reason For Study Reason For Study: TIA/CVA Procedure This was a 2D Doppler, Color Flow transthoracic echocardiogram. The study was technically difficult. Contrast injection was performed. Exam performed portable in patient room. Left Ventricle Normal LV size. Left ventricular systolic function is normal. The left ventricular ejection fraction is 65 %. Stage 1 diastolic dysfunction. Right Ventricle Normal RV size. Normal systolic function. Atria Normal left atrium. Normal right atrium. Mitral Valve Normal mitral valve. Tricuspid Valve Normal tricuspid valve. Aortic Valve Normal aortic valve. Trisinus/trileaflet aortic valve. Pulmonic Valve Normal pulmonic valve. Great Vessels Normal aortic root. The pulmonary artery is normal size. Inferior vena cava collapse with respiration. Pericardium/Pleural No pericardial effusion. Medication Diluted definity 2ml given slow IV push to enhance endocardial definition. MMode/2D Measurements & Calculations LVIDd: 4.2 cm IVSd: 0.86 cm Ao root diam: 3.1 cm LVIDs: 3.3 cm LVPWd: 0.76 cm RVDd: 3.3 cm FS: 23.0 % LAV(MOD-bp): 39.6 ml LVAd ap4: 31.0 cm2 SV(MOD-sp4): 61.1 ml LAV(MOD-bp) Indexed: 18.7 ml/m2 LVLd ap4: 8.4 cm SI(MOD-sp4): 28.8 ml/m2 LAV(MOD-sp2): 40.0 ml EDV(MOD-sp4): 93.3 ml LAV(MOD-sp4): 40.9 ml EDV(sp4-el): 96.9 ml LVAs ap4: 16.1 cm2 LVLs ap4: 6.5 cm ESV(MOD-sp4): 32.2 ml ESV(sp4-el): 33.7 ml EF(MOD-sp4): 65.5 % EF(sp4-el): 65.3 % SV(sp4-el): 63.2 ml LA A4 area: 15.6 cm2 LA dimension(2D): 3.5 cm RA A4 area: 11.8 cm2 TAPSE: 2.5 cm Time Measurements MV dec time: 0.22 sec Doppler Measurements & Calculations MV E max mitesh: 61.9 cm/sec Lat Peak E' Mitesh: 11.2 cm/sec Med Peak E' Mitesh: 11.5 cm/sec MV A max mitesh: 64.1 cm/sec E/E' lat: 5.5 E/E' med: 5.4 MV E/A: 0.97 MV V2 max: 82.8 cm/sec MV P1/2t max mitesh: 70.7 cm/sec Ao V2 max: 104.4 cm/sec MV max P.7 mmHg MV P1/2t: 70.1 msec Ao max P.4 mmHg MV V2 mean: 39.7 cm/sec MV dec slope: 295.7 cm/sec2 MV mean P.77 mmHg MVA(P1/2t): 3.1 cm2 MV V2 VTI: 23.8 cm LV V1 max: 97.8 cm/sec PA V2 max: 80.4 cm/sec LV V1 max P.8 mmHg LV V1 mean P.1 mmHg LV V1 mean: 66.4 cm/sec LV V1 VTI: 21.2 cm ECHO/Echo Complete W/ Contrast Interpretation Summary Normal LV size. Left ventricular systolic function is normal. The left ventricular ejection fraction is 65 %. Stage 1 diastolic dysfunction. Contrast injection was performed. Ordering Physician: Sumit Fernandez Performed By: Gabriele Abel RCS
[2025-04-14 06:15] LABS: Hematocrit 44.2 % (40-54); Hemoglobin 15.1 g/dL (13.0-16.5); Mean Corp Hgb Conc 34.2 g/dL (32-36); Mean Corpuscular Volume 89.8 fL (80-94); Mean Platelet Vol. 11.5 fl (6.2-12.0); Platelet Count 200 K/mm3 (150-450); RBC Distribution Width CV 12.3 % (11.6-14.6); RBC Distribution Width SD 40.9 fl (35.1-43.9); Red Blood Count 4.92 M/mm3 (4.6-6.2); White Blood Count 9.7 K/mm3 (4.4-11.0)
[2025-04-14 06:39] LABS: Anion Gap 10 (5-15); BUN 17 mg/dL (4-19); BUN/Creat Ratio 19.1 RATIO (10-20); Calcium,Total 9.0 mg/dL (7.6-11.0); Carbon Dioxide 22.2 mmol/L (21.0-32.0); Chloride 106 mmol/L (98-108); Estimated Creatinine Clearance 92.73 ml/min (50-250); Glucose 231 mg/dL (70-99); Potassium 3.9 mmol/L (3.3-5.1)
[2025-04-14 07:18] LABS: Cholesterol 151 mg/dL (<=200); Low Density Lipoprotein Calc. 95 mg/dL; Triglycerides 123 mg/dL; Very Low Density Lipoprotein 25 mg/dL (5-40); cholesterol:hdl ratio screen 4.43
[2025-04-14 07:49] VITALS: BP 140/83; PULSE 57; RESP 14; TEMP 36.3; O2SAT 96
[2025-04-14] MEDS: Aspirin E.C. 325 MG Tablet PO (07:56)
--- NOTE | 2025-04-14 14:04 | CON.PCM.NE_ITS ---
Assessment and Plan: Stroke Assessment/Plan # Mild ischemic stroke ? unclear etiology at this time but ongoing work up - recommend DAPT (ASA 81+Plavix 75 daily) x 21 days. Give 300 plavix now as a loading dose and can reduce ASA dose to 81 mg daily. 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 Patient lives at home with his , baseline mRS 0. Has had weeks of polyuria and polydipsia. On day of presentation, he had an episode of right-sided facial droop with R face/hand numbness and slurred speech, so his brought him in for further evaluation. The facial symptoms lasted for about 5 minutes but the hand has remained week. In the ED he was hypertensive to the 150s systolic but otherwise in normal sinus rhythm, afebrile and stable on room air at rest. CT brain unremarkable. Labs notable for glucose of 429 and found to have an A1c of 10.8%. MRI brain shows acute L frontal and R parietal cortical infarcts. No current complaints, still feels hand is weak. [facility] Fatigue Swollen neck Home Medications ?Medication ?Instructions ?Recorded ?Last Taken ?Type NK 04/13/25 Unknown History Allergy/AdvReac Type Severity Reaction Status Date / Time No Known Allergies Allergy Verified 04/13/25 14:37 Family History Sister Breast cancer Father Diabetes Surgical History History of foot surgery Hx of ultrasound guided needle biopsy Social History (Updated 04/13/25 @ 19:09 by Laverne Shay) Smoking Status: Never smoker alcohol intake: never substance use type: does not use caffeine: Yes what type of physical activity do you participate in: none frequency: does not exercise seatbelt use: always Vital Signs Vital Signs Vital Signs: 04/13/25 14:40 04/13/25 14:45 04/13/25 15:48 Temperature 97.2 F L Temperature Source Oral Pulse Rate 85 70 Pulse Strength Respiratory Rate 18 16 Respiratory Effort Normal Non-Labored Respiratory Depth Respiratory Pattern Normal Blood Pressure 155/73 H 147/87 H Blood Pressure Mean 100 107 Blood Pressure Source Blood Pressure Position Blood Pressure Location Pulse Ox 98 99 Oxygen Delivery Method Room Air Room Air 04/13/25 16:45 04/13/25 19:05 04/13/25 22:00 Temperature 97.2 F L 97.9 F Temperature Source Oral Pulse Rate 70 68 Pulse Strength Respiratory Rate 18 14 Respiratory Effort Normal Non-Labored Respiratory Depth Normal Respiratory Pattern Normal Blood Pressure 150/91 H 158/87 H Blood Pressure Mean 110 110 Blood Pressure Source Monitor Blood Pressure Position Semi-Fowlers Blood Pressure Location Left Arm Pulse Ox 97 98 Oxygen Delivery Method Room Air Room Air 04/13/25 22:00 04/13/25 23:00 04/13/25 23:03 Temperature 97.9 F Temperature Source Oral Pulse Rate 75 Pulse Strength Normal (2+) Respiratory Rate 16 Respiratory Effort Respiratory Depth Respiratory Pattern Blood Pressure 146/76 H Blood Pressure Mean 99 Blood Pressure Source Monitor Blood Pressure Position Semi-Fowlers Blood Pressure Location Left Arm Pulse Ox 97 97 Oxygen Delivery Method Room Air Room Air 04/14/25 03:25 04/14/25 04:00 04/14/25 07:49 Temperature 97.6 F L 97.4 F L Temperature Source Oral Temporal Pulse Rate 65 57 L Pulse Strength Respiratory Rate 14 14 Respiratory Effort Normal Non-Labored Respiratory Depth Normal Respiratory Pattern Normal Blood Pressure 131/72 H 140/83 H Blood Pressure Mean 91 102 Blood Pressure Source Monitor Monitor Blood Pressure Position Semi-Fowlers Sitting Blood Pressure Location Left Arm Left Arm Pulse Ox 96 96 Oxygen Delivery Method Room Air Room Air Room Air 04/14/25 09:00 Temperature Temperature Source Pulse Rate Pulse Strength Respiratory Rate Respiratory Effort Respiratory Depth Respiratory Pattern Blood Pressure Blood Pressure Mean Blood Pressure Source Blood Pressure Position Blood Pressure Location Pulse Ox Oxygen Delivery Method Room Air Weight Weight: 94 kg Body Mass Index (BMI) 29.7 EEG Results Procedure Details EEG Procedure Details: GONZALEZ FUENTES is a 69 year old M with a past medical history of , who presents for evaluation of Electroencephalogram on DATE at TIME Physical Exam Narrative MS: awake, alert, oriented x 3, follows commands, able to name, no aphasia, no dysarthria CN: VFF, EOMI , no facial weakness, nml facial sensation M:? RUE pronator drift, loss of FFM in R hand. ?Otherwise full strength in all extremities S: nml to LT in all extremities C: no dysmetria Lab / Micro Data 04/14/25 05:39 04/14/25 05:39 Labs: Laboratory Results - last 24 hr 04/13/25 14:51: WBC 8.3, RBC 5.33, Hgb 16.4, Hct 47.7, MCV 89.5, MCH 30.8, MCHC 34.4, RDW Std Deviation 40.1, RDW Coeff of Tyler 12.2, Plt Count 227, MPV 11.3, Immature Gran % (Auto) 0.400, Neut % (Auto) 73.1 H, Lymph % (Auto) 17.6 L, [place] % (Auto) 7.0, Eos % (Auto) 1.4, Baso % (Auto) 0.5, Absolute Neuts (auto) 6.1, Absolute Lymphs (auto) 1.46, Nucleated RBC % 0, Sodium 135, Potassium 4.0, Chloride 100, Carbon Dioxide 23.9, Anion Gap 12, BUN 16, Creatinine 0.97, Estim Creat Clear Calc 86.96, Est GFR (MDRD) Non-Af 86, BUN/Creatinine Ratio 16.1, G lucose 429 H, Hemoglobin A1c 10.8 H, Calcium 9.8, Troponin T High Sens < 6, b- Hydroxybutyric mmol/L 0.3 04/13/25 15:20: Urine Color Straw, Urine Clarity Clear, Urine pH 6.0, Ur Specific [place] 1.015, Urine Protein 15 H, Urine Glucose (UA) 1000 H, Urine Ketones 5 H, Urine Occult Blood Negative, Urine Nitrite Negative, Urine Bilirubin Negative, Urine Urobilinogen Normal, Ur Leukocyte Esterase Negative, Urine RBC 0-5 SEEN, Urine WBC 0-5 SEEN, Ur Squamous Epith Cells 0-5 SEEN, Urine Bacteria 1+, Urine Mucus 0 SEEN 04/13/25 17:01: POC Glucose 320 H 04/13/25 17:23: POC Glucose 290 H 04/13/25 17:30: Troponin T Hi Sens 2 Hr 6 04/13/25 20:25: POC Glucose 250 H 04/13/25 23:06: POC Glucose 254 H 04/14/25 03:30: POC Glucose 267 H 04/14/25 05:39: WBC 9.7, RBC 4.92, Hgb 15.1, Hct 44.2, MCV 89.8, MCH 30.7, MCHC 34.2, RDW Std Deviation 40.9, RDW Coeff of Tyler 12.3, Plt Count 200, MPV 11.5, Sodium 138, Potassium 3.9, Chloride 106, Carbon Dioxide 22.2, Anion Gap 10, BUN 17, Creatinine 0.89, Estim Creat Clear Calc 92.73, Est GFR (MDRD) Non-Af 94, BUN/Creatinine Ratio 19.1, Glucose 231 H, Calcium 9.0, Triglycerides 123, Cholesterol 151, LDL Cholesterol, Calc 95, VLDL Cholesterol 25, HDL Cholesterol 34 L, Cholesterol/HDL Ratio 4.43 04/14/25 07:52: POC Glucose 236 H 04/14/25 11:49: POC Glucose 168 H Imaging Radiology Impression Brain CT 04/13/25 15:20 IMPRESSION: CHRONIC CHANGES. NO ACUTE FINDINGS. Reading Location: [id number] Brain MRI 04/13/25 17:18 IMPRESSION: Two small foci of acute infarct in the left precentral gyrus and right parietal lobe, likely embolic. Reading Location: [id number] Echocardiogram 04/14/25 04:43 Interpretation Summary Normal LV size. Left ventricular systolic function is normal. The left ventricular ejection fraction is 65 %. Stage 1 diastolic dysfunction. Contrast injection was performed. Ordering Physician: Sumit Fernandez Performed By: Gabriele Abel RCS Active Medications Active Medications Active Medications: Current Medications Generic Name Dose Route Start Last Admin Trade Name Freq PRN Reason Stop Dose Admin Acetaminophen 650 mg 04/13/25 18:52 Acetaminophen 325 Mg Tablet PO Q6H PRN PRN Pain 1-10 Or Fever>100.7 Aspirin 325 mg 04/14/25 08:00 04/14/25 07:56 Aspirin E.C. 325 Mg Tablet PO 325 mg BREAKFAST CHARLY Administration Atorvastatin Calcium 40 mg 04/14/25 22:00 Atorvastatin Calcium 40 Mg Tablet PO QHS CHARLY Enoxaparin Sodium 40 mg 04/14/25 10:00 04/14/25 07:56 Enoxaparin 40 Mg/0.4 Ml Syringe SC Not Given DAILY CHARLY Glucagon 1 mg 04/13/25 18:52 Glucagon 1 Mg/Ml Syringe IM X1 PRN Hypoglycemia Protocol Hydralazine HCl 10 mg 04/13/25 18:52 Hydralazine 20 Mg/Ml Vial IV Q4H PRN PRN SBP GREATER THAN 170 Protocol Dextrose 250 mls @ 0 mls/hr 04/13/25 18:52 Dextrose 10%-Water IV .Q0M PRN HYPOGLYCEMIA Protocol As Directed Sodium Chloride 250 mls @ 15 mls/hr 04/13/25 18:53 IV .[id number] PRN Saline Flush Sodium Chloride 250 mls @ 15 mls/hr 04/13/25 18:53 IV .[id number] PRN Additional IVPB Infusion Insulin Glargine 20 unit 04/13/25 22:00 04/13/25 23:10 Insulin Glargine-Yfgn 100 Unit/Ml Pen SC 20 unit QHS CHARLY Administration Protocol Insulin Human Lispro 0 unit 04/13/25 22:00 04/14/25 11:50 Insulin Lispro 100 Unit/Ml Insuln.Pen SC 2 u ACHS CHARLY Administration Protocol Insulin Human Lispro 7 unit 04/13/25 18:52 04/14/25 11:50 Insulin Lispro 100 Unit/Ml Insuln.Pen SC 7 u TIDAC CHARLY Administration Protocol Melatonin 3 mg 04/13/25 18:52 Melatonin 3 Mg Tablet PO QHS PRN PRN INSOMNIA Ondansetron HCl 4 mg 04/13/25 18:52 Ondansetron 4 Mg/2 Ml Vial IV Q8H PRN PRN NAUSEA/VOMITING Sodium Chloride 10 - 40 ml 04/13/25 18:53 0.9% Saline Lock 10 Ml Syringe IV UD PRN SALINE FLUSH NIHSS NIHSS Nursing Documentation NIHSS Nursing Documentation: NIH Stroke Scale Start: 04/13/25 15:48 Freq: Status: Discharge Protocol: Activity Type Activity Date Activity User E-sign Co-sign Detail Recorded Client Recorded Date Recorded By Document 04/13/25 14:45 AMB [id number] 04/13/25 15:49 AMB 04/13/25 14:45 NIH Stroke Scale [NIHSS] A score of 0 is normal or asymptomatic . Total possible score is 42. Inpatient: RN or Physician to activate a stroke alert for onset of new stroke symptoms or with NIHSS increase >/= 3 points. Following change in neurological status, NIHSS will be performed per physician order or more frequently PRN. -1a. Level of Consciousness 0 - Alert; keenly responsive -1b. LOC Questions 0 - Answers BOTH questions correctly -1c. LOC Commands 0 - Performs BOTH tasks correctly -2. Best Gaze 0 - Normal -3. Visual 0 - No visual loss -4. Facial Palsy 0 - Normal symmetrical movements -5a. Left Arm 0 - No drift; arm holds 90 ( or 45) degrees for full 10 seconds -5b. Right Arm 0 - No drift; arm holds 90 ( or 45) degrees for full 10 seconds -6a. Left Leg 0 - No drift; leg holds 30- degree position for full 5 seconds -6b. Right Leg 0 - No drift; leg holds 30- degree position for full 5 seconds -7. Limb Ataxia 0 - Absent -8. Sensory 0 - Normal; no sensory loss -9. Best Language 0 - No aphasia; normal -10. Dysarthria 0 - Normal -11. Extinction and Inattention 0 - No abnormality -Total 0 Query Text:A score of 0 is normal or asymptomatic. Total possible score is 42 . ED: Notify Physician for NIHSS increase by > / = 3 points. Inpatient: RN or Physician to activate a stroke alert for NIHSS increase of > / = 3 points. NIHSS: Ischemic Stroke/TIA Start: 04/13/25 20:13 Freq: [id number] Status: Active Protocol: Activity Type Activity Date Activity User E-sign Co-sign Detail Recorded Client Recorded Date Recorded By Document 04/14/25 07:49 ALE [id number] 04/14/25 07:50 ALE 04/14/25 07:49 -1a. Level of Consciousness 0 - Alert; keenly responsive -1b. LOC Questions 0 - Answers BOTH questions correctly -1c. LOC Commands 0 - Performs BOTH tasks correctly -2. Best Gaze 0 - Normal -3. Visual 0 - No visual loss -4. Facial Palsy 0 - Normal symmetrical movements -5a. Left Arm 0 - No drift; arm holds 90 ( or 45) degrees for full 10 seconds -5b. Right Arm 0 - No drift; arm holds 90 ( or 45) degrees for full 10 seconds -6a. Left Leg 0 - No drift; leg holds 30- degree position for full 5 seconds -6b. Right Leg 0 - No drift; leg holds 30- degree position for full 5 seconds -7. Limb Ataxia 0 - Absent -8. Sensory 0 - Normal; no sensory loss -9. Best Language 0 - No aphasia; normal -10. Dysarthria 0 - Normal -11. Extinction and Inattention 0 - No abnormality -Total 0 Query Text:A score of 0 is normal or asymptomatic. Total possible score is 42 . ED: Notify Physician for NIHSS increase by > / = 3 points. Inpatient: RN or Physician to activate a stroke alert for NIHSS increase of > / = 3 points. Coma Scale [Assess] -Eye Opening Spontaneous -Motor Obeys Commands -Verbal Oriented [Total] -Coma Scale Total 15
--- NOTE | 2025-04-14 14:11 | CT_ITS ---
PROCEDURE: CTA HEAD AND NECK W/ CONTRAST 04/14/2025 REASON FOR EXAM: CVA Recent stroke. TECHNIQUE: Procedure Code: CTCTA.HDNCK Modality: CT Procedure: CTA HEAD AND NECK W/ CONTRAST Multiplanar Sagittal and Coronal images were obtained. 3D post processing was performed CONTRAST: Isovue 370 VOLUME: 100 mL One or more dose reduction techniques were used (e.g., Automated exposure control, adjustment of the mA and/or kV according to patient size, use of iterative reconstruction technique). RADIATION DOSE SUMMARY: CTDlvol: 17.8 mGy DLP: 1614.19 mGycm COMPARISON: Prior CT scan of the head dated April 13, 2025. FINDINGS: Heterogeneous enlargement of the right lobe of the thyroid gland with the dense calcific densities. Sonographic correlation recommended. Aortic Arch: Normal size and branching pattern. No significant atherosclerotic plaque. Brachiocephalic and Subclavians: Unremarkable RIGHT Carotid: Right CCA: Unremarkable. Right ICA: Unremarkable. Right ECA: Unremarkable. LEFT Carotid: Left CCA: Unremarkable. Left ICA: Unremarkable. Left ECA: Unremarkable. Vertebrals: Codominant. Arise from the subclavians. Both vertebrals form the basilar. RIGHT Vertebral: Unremarkable. LEFT Vertebral: Unremarkable. Anatomy: [place] of [place] anatomy is normal. Aneurysm or avm: No intracranial aneurysms or large vascular malformations are identified. Anterior cerebral arteries: Unremarkable: Middle cerebral arteries: Unremarkable. Basilar artery: Unremarkable. Posterior cerebral arteries: Unremarkable. Other major branches of the posterior circulation: Unremarkable. Major venous structures: Unremarkable. Other findings: Neck: Heterogeneous enlargement of the right lobe of the thyroid gland with dense calcifications. Partial opacification of the left maxillary sinus. Lungs: Bones: CT/CTA Head AND Neck W/ Contrast IMPRESSION: No significant vascular abnormality is seen. Reading Location: [id number]
--- NOTE | 2025-04-14 14:17 | CASEMGMT ---
CHILDRESS Met with patient to complete CHILDRESS form. CHILDRESS form and its content were verbally explained and patient's questions were answered to the best of my ability.? Patient voiced understanding and signed CHILDRESS form.? Patient provided a copy of signed CHILDRESS form and original placed in patient's chart.? Patient had no further questions. Heidi Worrell, Discharge Planning Asst
--- NOTE | 2025-04-14 15:10 | DCINST_ITS ---
Discharge Instructions DC O2, CPAP, BIPAP needs Home O2 Discharge instructions: No Dressing / Incision Discharge Activity: Return to Normal Activity Dressing / Incision Call your doctor if you observe: Fever of 101 or Higher, Shortness of breath, Dizziness, Fainting spells, Swelling in the ankles, Chest pain and Increased palpitations (irregular heartbeat) Follow Up Care Test Results: Test results from this visit will be discussed in further detail at your follow- up appointment, if applicable. Discharge Plan Admission Admit Date/Time: 04/13/25 16:49 Attending Provider: Jacinto Meadows Primary Care Provider: Ryder Graves Consulting Providers: Jerry Ambrose; Bk West; Khari Cronin; Tiffany Castañeda; Elida Soler; Aruna Samayoa; Herber Ryan; Ilana Triplett; Patrice Sethi; Suresh Davidson; David Fall; Anisha Conrad; Lexi Benitez; Payam Rcahel; Kristal Moreno; Janki Shell; Alexis Schrader; Murali Sexton; Chip Franks; Hector Cooper; Gavi Murdock; Rm Florian Instructions Patient Instructions: What Is Ischemic Stroke?, Risk Factors for Stroke, ED Stroke, Completed Discharge Orders/Prescriptions Prescriptions: New atorvastatin [Lipitor] 80 mg tablet 80 mg PO QHS 30 Days Qty: 30 0RF aspirin 81 mg capsule 81 mg PO BREAKFAST 30 Days Qty: 30 0RF clopidogrel [Plavix] 75 mg tablet 75 mg PO DAILY Qty: 21 0RF lisinopril 10 mg tablet 10 mg PO DAILY Qty: 30 0RF metformin [Glucophage XR] 500 mg tablet extended release 24 hr 500 mg PO DAILY Qty: 30 0RF Other Ambulatory Orders: Glucometer (Routine) Timeframe: 1 Day Location: Determined by Patient Ordered By: Dr. Jacinto Meadows 30 Day Event Recorder Preventi (Routine) Timeframe: 1 Day Facility: [facility] - Location: Cardiovascular Services Ordered By: Dr. Jacinto Meadows Referrals / Follow Up: Ryder Graves DO [Primary Care Provider, Medical] - Within 1 Week Mango Stephenson MD [Non-Staff -Ordering Privileges, Neurology] - Within 1 Month Disposition Disposition (needs filled in before D/C Order can be placed): Home, Self Care
[2025-04-14 15:15] VITALS: BP 144/78; PULSE 71; RESP 16; O2SAT 96
--- NOTE | 2025-04-14 15:46 | CASEMGMT ---
Social Work SW completed a PHQ9 with the patient and he scored a 0. L. СВЕТЛАНА linda
--- NOTE | 2025-04-14 15:48 | CASEMGMT ---
Patient has order for discharge. RN CM received script for glucometer and placed in discharge packet. RN CM in to discuss needs at discharge, family at bedside. Patient denies needs or help at discharge. Patient had no further questions.
--- NOTE | 2025-04-14 15:59 | DS.PCM_ITS ---
Providers Date of Admission: 04/13/25 Primary Care Physician: Dr. Ryder Graves, DO Consultations 04/14/25 08:38 Consult: Tele-Neurology Routine Consulting Provider: [facility] Reason for Consult: stroke/TIA EMERGENT Consult: No MD Notified: Yes Date Notified: 04/14/25 Time Notified: 08:52 Method of Notification: Answering Service Nursing Unit Staff Notify [facility] of Tele-Neurology Consult: Yes Reason For Visit: TIA/CVA, HYPERGLYCEMIA Diagnosis Discharge Diagnosis (1) Stroke-like symptoms: Status: Acute Code(s): R29.90 - Unspecified symptoms and signs involving the nervous system (2) Hyperglycemia due to type 2 diabetes mellitus: Status: Acute Code(s): E11.65 - Type 2 diabetes mellitus with hyperglycemia Medications at Discharge Home Medications aspirin 81 mg capsule 81 mg PO BREAKFAST 30 days #30 caps 04/14/25 atorvastatin 80 mg tablet (Lipitor) 80 mg PO QHS 30 days #30 tabs 04/14/25 clopidogrel 75 mg tablet (Plavix) 75 mg PO DAILY #21 tabs 04/14/25 lisinopril 10 mg tablet 10 mg PO DAILY #30 tabs 04/14/25 metformin 500 mg tablet,extended release 24 hr (Glucophage XR) 500 mg PO DAILY #30 tabs 04/14/25 Hospital Course Operations None Procedures 2-D Echocardiogram Summary of Care Provided Minutes Spent on Discharge: 36 Hospital Course: Per HPI: GONZALEZ FUENTES, is a 69 M who presented to [facility] ED on 04/13/2025 with polyuria, polydipsia and strokelike symptoms. Patient lives at home with his . He is not on any medications at home but notably has not seen his PCP for many years. He has had polyuria and polydipsia now for the past several weeks. Today he had an episode of right-sided facial droop with numbness and slurred speech, so his brought him in for further evaluation. The symptoms lasted for about 5 minutes and resolved by the time they got to the ED. In the ED he was hypertensive to the 150s systolic but otherwise in normal sinus rhythm, afebrile and stable on room air at rest. CT brain unremarkable. CBC was benign. BMP was benign as well except for a glucose of 429. Found to have an A1c of 10.8%. UA with 1000 glucose, 15 protein, 5 ketones, was otherwise benign. Given his strokelike symptoms and new onset diabetes, hospitalist was contacted for admission. I saw the patient at bedside in the ED, and son were present. Patient was mild fatigue. But otherwise sitting back comfortably in bed, conversing normally, in no acute distress. Denies any neurologic symptoms at this time. His blood sugar had been rechecked after receiving only IV fluids and was down to the 330s. He does have a strong family history of diabetes. He does report losing 10 to 15 pounds over the past few months without trying and notes that he has felt fatigued frequently. He denies any recent infections. No other acute concerns currently. Will be admitted for further management. Hospital Course: 1. 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 MRI was positive for stroke and neurology was consulted. A CTA of the head and neck was obtained which was unremarkable and echocardiogram was also normal with an EF of 65% stage I diastolic dysfunction. He was started on aspirin and Plavix as well as Lipitor for stroke protocol, he was placed on insulin as his A1c was 10. He is feeling better and most of his symptoms have resolved except for some fine motor in the right upper extremity. I discussed with him the possibility for discharge today and he and his family expressed understanding of the risks and benefits of going home and would like to go today. He received a loading dose of Plavix on the day of discharge and will be on aspirin and Plavix for 21 days and then just aspirin. I did increase his Lipitor from 40 mg a day received last night to 80 mg going forward. Given his blood pressure and his proteinuria I did also start him on lisinopril 10 mg p.o. daily and given his diabetes with his A1c of 10 he was started on metformin extended release 500 mg p.o. daily on discharge. We did have extensive counseling on dietary and lifestyle modifications including exercise. I discussed with him the need to follow-up with his PCP in 3 to 5 days and we will have him follow-up with neurology in a month. Given the concern for an embolic source will place him on a 30-day event monitor. Physical Exam Narrative General: Alert, Oriented x3, Cooperative, No apparent distress HEENT: Atraumatic, PERRLA, EOMI, Normocephalic Oral: Moist Mucosa Neck: Supple, No JVD Lungs: Diminished, Normal air movement, No rhonchi, No wheeze, No rales Cardiovascular: Regular rate, Regular Rhythm, Normal S1, Normal S2, No murmurs Abdomen: Soft, Non Tender, Non-Distended, No Hepato-splenomegaly Extremities: No edema, Capillary Refill Less than 3 Seconds Skin: No rashes, No breakdown Musculoskeletal: No Tenderness to Palpation of Joints or Extremities Neurological: Right hand fine motor deficiency though strength intact Psych/Mental Status: Normal Affect, Appropriate Weight / BMI Weight Weight: 207 lb 3.752 oz Body Mass Index (BMI) 29.7 ABG / Lab / Microbiology Data 04/14/25 05:39 04/14/25 05:39 Laboratory: Laboratory Results - last 24 hr 04/13/25 14:51: Hemoglobin A1c 10.8 H, b-Hydroxybutyric mmol/L 0.3 04/13/25 15:20: Urine Color Straw, Urine Clarity Clear, Urine pH 6.0, Ur Specific Conklin 1.015, Urine Protein 15 H, Urine Glucose (UA) 1000 H, Urine Ketones 5 H, Urine Occult Blood Negative, Urine Nitrite Negative, Urine Bilirubin Negative, Urine Urobilinogen Normal, Ur Leukocyte Esterase Negative, Urine RBC 0-5 SEEN, Urine WBC 0-5 SEEN, Ur Squamous Epith Cells 0-5 SEEN, Urine Bacteria 1+, Urine Mucus 0 SEEN 04/13/25 17:01: POC Glucose 320 H 04/13/25 17:23: POC Glucose 290 H 04/13/25 17:30: Troponin T Hi Sens 2 Hr 6 04/13/25 20:25: POC Glucose 250 H 04/13/25 23:06: POC Glucose 254 H 04/14/25 03:30: POC Glucose 267 H 04/14/25 05:39: WBC 9.7, RBC 4.92, Hgb 15.1, Hct 44.2, MCV 89.8, MCH 30.7, MCHC 34.2, RDW Std Deviation 40.9, RDW Coeff of Tyler 12.3, Plt Count 200, MPV 11.5, Sodium 138, Potassium 3.9, Chloride 106, Carbon Dioxide 22.2, Anion Gap 10, BUN 17, Creatinine 0.89, Estim Creat Clear Calc 92.73, Est GFR (MDRD) Non-Af 94, BUN/Creatinine Ratio 19.1, Glucose 231 H, Calcium 9.0, Triglycerides 123, Cholesterol 151, LDL Cholesterol, Calc 95, VLDL Cholesterol 25, HDL Cholesterol 34 L, Cholesterol/HDL Ratio 4.43 04/14/25 07:52: POC Glucose 236 H 04/14/25 11:49: POC Glucose 168 H Radiography Diagnostic Testing: Radiology Impression Brain MRI 04/13/25 17:18 IMPRESSION: Two small foci of acute infarct in the left precentral gyrus and right parietal lobe, likely embolic. Reading Location: [id number] Echocardiogram 04/14/25 04:43 Interpretation Summary Normal LV size. Left ventricular systolic function is normal. The left ventricular ejection fraction is 65 %. Stage 1 diastolic dysfunction. Contrast injection was performed. Ordering Physician: Sumit Fernandez Performed By: Gabriele Abel RCS Head/Neck CTA 04/14/25 14:11 IMPRESSION: No significant vascular abnormality is seen. Reading Location: [id number] D/C Instructions Call your doctor if you observe: Fever of 101 or Higher, Shortness of breath, Dizziness, Fainting spells, Swelling in the ankles, Chest pain and Increased palpitations (irregular heartbeat) DC O2, CPAP, BIPAP Needs Home O2 Discharge instructions: No Meaningful Use Info Meaningful Use Meaningful Use Diagnoses (Choose all that apply): None applicable Discharge Plan Admission Admit Date/Time: 04/13/25 16:49 Attending Provider: Jacinto Meadows Primary Care Provider: Ryder Graves Consulting Providers: Jerry Ambrose; Bk West; Khari Cronin; Tiffany Castañeda; Elida Soler; Aruna Samayoa; Herber Ryan; Ilnaa Triplett; Patrice Sethi; Suresh Davidson; David Fall; Anisha Conrad; Lexi Benitez; Payam Rachel; Kristal Moreno; Janki Shell; Alexis Schrader; Murali Sexton; Chip Franks; Hector Cooper; Gavi Murdock; Rm Florian Instructions Patient Instructions: What Is Ischemic Stroke?, Risk Factors for Stroke, ED Stroke, Completed Discharge Orders/Prescriptions Prescriptions: New atorvastatin [Lipitor] 80 mg tablet 80 mg PO QHS 30 Days Qty: 30 0RF aspirin 81 mg capsule 81 mg PO BREAKFAST 30 Days Qty: 30 0RF clopidogrel [Plavix] 75 mg tablet 75 mg PO DAILY Qty: 21 0RF lisinopril 10 mg tablet 10 mg PO DAILY Qty: 30 0RF metformin [Glucophage XR] 500 mg tablet extended release 24 hr 500 mg PO DAILY Qty: 30 0RF Other Ambulatory Orders: Glucometer (Routine) Timeframe: 1 Day Location: Determined by Patient Ordered By: Dr. Jacinto Meadows 30 Day Event Recorder Preventi (Routine) Timeframe: 1 Day Facility: [facility] - Location: Cardiovascular Services Ordered By: Dr. Jacitno Meadows Referrals / Follow Up: Ryder Graves DO [Primary Care Provider, Medical] - Within 1 Week Mango Stephenson MD [Non-Staff -Ordering Privileges, Neurology] - Within 1 Month Disposition Disposition (needs filled in before D/C Order can be placed): Home, Self Care Charges/Coding Visit Charges Inpatient E&M: 37064 Disch Hosp >30min
== END 2025-04-14 16:33 | disposition home or self-care (01) ==
LOC: ED 17:03 → PCU 18:01
PROVIDERS: Family Medicine; Admitting Provider Hospitalist; Emergency Provider Student in an Organized Health Care Education/Training Program; PCP Student in an Organized Health Care Education/Training Program; Visit Provider Family Medicine
DX: I63.89 Other cerebral infarction (principal); E11.65 Type 2 diabetes mellitus with hyperglycemia; Z68.31 Body mass index [BMI] 31.0-31.9, adult; R47.81 Slurred speech; Z87.891 Personal history of nicotine dependence; E66.811 Obesity, class 1; R29.810 Facial weakness; R20.0 Anesthesia of skin; R03.0 Elevated blood-pressure reading, without diagnosis of hypertension; R53.83 Other fatigue
CPT/HCPCS: 96361; 36415; 70450; 70496; 70498; 70551; 80048; 80061; 81001; 82010; 82962; 83036; 84484; 85025; 85027; 92610; 93005; 93306; 96360; 97162; 97165; 97802; 99221; 99285; Q9957; Q9967; A4216; C8929; G0378